=== PATIENT | female | born 1930 | race Two or more races ===

== ENCOUNTER 2020-04-20 08:16 | Inpatient (IN) | payer MEDICARE, BC ==
[2020-04-20] MEDS ORDERED: NORMAL SALINE 250 ML IV ONE (08:48)
[2020-04-20 09:19] LABS: ABSOLUTE EOSINOPHILS # (AUTO) 0.1 10^3/uL (0.0-0.6); ABSOLUTE LYMPHOCYTES (AUTO) 2.1 10^3/uL (0.5-4.7); ABSOLUTE MONOCYTES (AUTO) 0.5 10^3/uL (0.1-1.4); ABSOLUTE NEUT (AUTO) 5.7 10^3/uL (1.7-8.2); BASOPHILS % (AUTO) 0.5 % (0-2); EOSINOPHILS % (AUTO) 0.7 % (0-6); HEMATOCRIT 43.1 % (36.0-47.0); HEMOGLOBIN 14.7 g/dL (12.0-15.5); LYMPHOCYTES % (AUTO) 25.3 % (13-45); MEAN CORPUSCULAR HEMOGLOBIN 28.9 pg (27.0-33.4); MEAN CORPUSCULAR VOLUME 85 fl (80-97); MONOCYTES % (AUTO) 6.4 % (3-13); PLATELET COUNT 187 10^3/uL (150-450); RED BLOOD COUNT 5.07 10^6/uL (3.72-5.28); RED CELL DISTRIBUTION WIDTH 14.3 % (11.5-14.0); SEGMENTED NEUTROPHILS % (AUTO) 67.1 % (42-78); TOTAL CELLS COUNTED % (AUTO) 100 %; WHITE BLOOD COUNT 8.5 10^3/uL (4.0-10.5)
[2020-04-20 09:24] LABS: PROTHROMBIN TIME 13.5 SEC (11.4-15.4)
[2020-04-20 09:25] LABS: PARTIAL THROMBOPLASTIN TIME 32.5 SEC (23.5-35.8)
[2020-04-20 09:35] LABS: ALKALINE PHOSPHATASE 77 U/L (38-126); ANION GAP 11 (5-19); ASPARTATE AMINO TRANSFERASE 25 U/L (14-36); BILIRUBIN,DIRECT 0.1 mg/dL (0.0-0.4); BILIRUBIN,TOTAL 0.9 mg/dL (0.2-1.3); BLOOD UREA NITROGEN 14 mg/dL (7-20); CALCIUM 9.5 mg/dL (8.4-10.2); CARBON DIOXIDE 25 mmol/L (22-30); CHLORIDE 105 mmol/L (98-107); CREATINE KINASE 65 U/L (30-135); GLUCOSE 111 mg/dL (75-110); POTASSIUM 3.8 mmol/L (3.6-5.0); TOTAL PROTEIN 6.9 g/dL (6.3-8.2)
[2020-04-20 09:47] LABS: NT PRO BNP 197 pg/mL (<450)
--- NOTE | 2020-04-20 09:48 | RADIOLOGY REPORT (SQ) ---
EXAM DESCRIPTION: CT HEAD WITHOUT IMAGES COMPLETED DATE/TIME: 04/20/2020 9:33 am REASON FOR STUDY: unable to ambulate/right weakness upp/low COMPARISON: 03/09/2016 TECHNIQUE: Axial images acquired through the brain without intravenous contrast. Images reviewed wi th bone, brain and subdural windows. Additional sagittal and coronal reconstructions were generated. Images stored on PACS. All CT scanners at this facility use dose modulation, iterative reconstruction, and/or weight based d osing when appropriate to reduce radiation dose to as low as reasonably achievable (ALARA). [facility]: Dose Right [facility]: CareDose [facility]: Dose Right [facility]: Teradose 4D [facility]: LawyerPaid RADIATION DOSE: mGy. LIMITATIONS: None. FINDINGS: VENTRICLES: Prominent. CEREBRUM: No masses. No hemorrhage. No midline shift. Areas of low density in the white matter mos t likely due to chronic micro-vascular ischemic change. No evidence for acute infarction. CEREBELLUM: No masses. No hemorrhage. No alteration of density. No evidence for acute infarction. EXTRAAXIAL SPACES: Age-related involutional change. No fluid collections. No masses. ORBITS AND GLOBE: No intra- or extraconal masses. Normal contour of globe without masses. CALVARIUM: No fracture. PARANASAL SINUSES: No fluid or mucosal thickening. SOFT TISSUES: No mass or hematoma. OTHER: No other significant finding. IMPRESSION: CHRONIC CHANGES OF ATROPHY AND MICROVASCULAR ISCHEMIA. NO ACUTE PROCESS. EVIDENCE OF ACUTE STROKE: NO. TECHNICAL DOCUMENTATION: JOB ID: [id number] Quality ID # [id number]: Final reports with documentation of one or more dose reduction techniques (e.g., Au tomated exposure control, adjustment of the mA and/or kV according to patient size, use of iterative reconstruction technique) 2010 [employer]- All Rights Reserved Reading location - IP/workstation name: [email or web address]
[2020-04-20 10:06] LABS: TROPONIN I < 0.012 ng/mL
[2020-04-20 11:08] LABS: APPEARANCE,URINE CLEAR; BILIRUBIN,URINE NEGATIVE (NEGATIVE); COLOR,URINE YELLOW; GLUCOSE, URINE NEGATIVE (NEGATIVE); KETONES,URINE 20 mg/dL (NEGATIVE); LEUKOCYTE ESTERASE,URINE NEGATIVE (NEGATIVE); NITRITE,URINE NEGATIVE (NEGATIVE); PROTEIN,URINE NEGATIVE (NEGATIVE); URINE SPECIFIC GRAVITY 1.013; UROBILINOGEN,URINE NEGATIVE mg/dL (<2.0)
--- NOTE | 2020-04-20 11:20 | RADIOLOGY REPORT (SQ) ---
EXAM DESCRIPTION: CHEST SINGLE VIEW IMAGES COMPLETED DATE/TIME: 04/20/2020 10:59 am REASON FOR STUDY: altered mental status COMPARISON: None. NUMBER OF VIEWS: One view. TECHNIQUE: Single frontal radiographic view of the chest acquired. LIMITATIONS: None. FINDINGS: LUNGS AND PLEURA: No opacities, masses or pneumothorax. No pleural effusion. MEDIASTINUM AND HILAR STRUCTURES: No masses. Contour normal. HEART AND VASCULAR STRUCTURES: Heart normal in size. Normal vasculature. BONES: No acute findings. HARDWARE: None in the chest. OTHER: No other significant finding. IMPRESSION: NO SIGNIFICANT RADIOGRAPHIC FINDING IN THE CHEST. TECHNICAL DOCUMENTATION: JOB ID: [id number] 2010 [employer]- All Rights Reserved Reading location - IP/workstation name: [email or web address]
--- NOTE | 2020-04-20 12:46 | RADIOLOGY REPORT (SQ) ---
EXAM DESCRIPTION: HIP RIGHT AP/LATERAL IMAGES COMPLETED DATE/TIME: 04/20/2020 12:30 pm REASON FOR STUDY: unable to walk COMPARISON: None. NUMBER OF VIEWS: Two views. TECHNIQUE: AP pelvis and additional frog legview of the left hip. LIMITATIONS: None. FINDINGS: MINERALIZATION: Osteopenia. RIGHT HIP: No fracture or dislocation. No worrisome bone lesions. LEFT HIP: No fracture or dislocation. No worrisome bone lesions. Limited views. PUBIS AND ISCHIUM: No fracture. PELVIS: No fracture. SACRUM: No fracture or dislocation. No worrisome bone lesions. LOWER LUMBAR SPINE: No fracture or dislocation. No worrisome bone lesions. No significant disc disea se. SOFT TISSUES: No findings. OTHER: No other significant finding. IMPRESSION: 1. No acute osseous findings. Correlation suggested. TECHNICAL DOCUMENTATION: JOB ID: [id number] 2010 [employer]- All Rights Reserved Reading location - IP/workstation name: [email or web address]
--- NOTE | 2020-04-20 12:47 | RADIOLOGY REPORT (SQ) ---
EXAM DESCRIPTION: ANKLE RIGHT AP/LATERAL IMAGES COMPLETED DATE/TIME: 04/20/2020 12:30 pm REASON FOR STUDY: unABLE TO BEAR WEIGHT RIGHT COMPARISON: None. NUMBER OF VIEWS: Two views. TECHNIQUE: AP, lateral, radiographic images acquired of the right ankle. LIMITATIONS: None. FINDINGS: MINERALIZATION: Osteopenia. BONES: No acute fracture or dislocation. Small plantar calcaneal spur. JOINTS: No effusions. SOFT TISSUES: No soft tissue swelling. No foreign body. OTHER: No other significant finding. IMPRESSION: 1. No acute osseous findings. TECHNICAL DOCUMENTATION: JOB ID: [id number] 2010 [employer]- All Rights Reserved Reading location - IP/workstation name: [email or web address]
--- NOTE | 2020-04-20 12:48 | RADIOLOGY REPORT (SQ) ---
EXAM DESCRIPTION: KNEE RIGHT 2 VIEWS IMAGES COMPLETED DATE/TIME: 04/20/2020 12:30 pm REASON FOR STUDY: unable to walk COMPARISON: None. NUMBER OF VIEWS: Two views. TECHNIQUE: AP, lateral radiographic images acquired of the right knee. LIMITATIONS: None. FINDINGS: MINERALIZATION: Osteopenia. BONES: No acute fracture or dislocation. JOINT: Mild to moderate narrowing at the patellofemoral joint. No effusion. SOFT TISSUES: No soft tissue swelling. No radio-opaque foreign body. OTHER: No other significant finding. IMPRESSION: 1. 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 2. No acute osseous findings. TECHNICAL DOCUMENTATION: JOB ID: [id number] 2010 [employer]- All Rights Reserved Reading location - IP/workstation name: [email or web address]
--- NOTE | 2020-04-20 16:05 | ER Document Report ---
Entered by RADHAMES BAE SCRIBE 04/20/20 0830 Acting as scribe for:EZIO KING MD ED General - General Stated Complaint: WEAKNESS/ISSUES WITH WALKING Mode of Arrival: Medic Information source: Patient, Emergency Med Personnel Notes: This 89 year old female brought in by EMS from home presents to the ED today for evaluation after not being able to walk today. According to EMS, the family reports that the patient is usually able to ambulate without any difficulty at baseline; however, she was unable to get up and walk today, so they called the patient's PCP who advised to call EMS and bring the patient to the ED for evaluation. Family reports a history of chronic right-sided weakness which started after a fall several months ago per EMS; patient also injured her right knee during that fall. Family denies a history of CVA and states that the patient is supposed to start PT soon. Patient denies any pain. TRAVEL OUTSIDE OF THE [place] IN LAST 30 DAYS: No - Related Data Allergies/Adverse Reactions: No Known Allergies Allergy (Unverified 03/09/16 18:57) Past Medical History - General Information source: Emergency Med Personnel - Social History Smoking Status: Unknown if Ever Smoked Smoking Education Provided: No Lives with: Family Family History: Reviewed & Not Pertinent - Past Medical History Cardiac Medical History: Reports: Hx Hypertension Review of Systems - Review of Systems Constitutional: See HPI EENT: No symptoms reported Cardiovascular: No symptoms reported Respiratory: No symptoms reported Gastrointestinal: No symptoms reported Genitourinary: No symptoms reported Female Genitourinary: No symptoms reported Musculoskeletal: See HPI Skin: No symptoms reported Hematologic/Lymphatic: No symptoms reported Neurological/Psychological: See HPI -: Yes All other systems reviewed and negative Physical Exam - Vital signs Vitals: Temp Pulse Resp BP Pulse Ox 98.8 F 74 16 158/80 H 93 04/20/20 08:24 04/20/20 08:24 04/20/20 08:24 04/20/20 08:24 04/20/20 08:24 - General General appearance: Alert In distress: None - HEENT Head: Normocephalic, Atraumatic Eyes: Normal Pupils: PERRL - Respiratory Respiratory status: No respiratory distress Chest status: Nontender Breath sounds: Normal Chest palpation: Normal - Cardiovascular Rhythm: Regular Heart sounds: Normal auscultation Murmur: No Friction rub: No Gallop: None auscultated - Abdominal Inspection: Normal Distension: No distension Bowel sounds: Normal Tenderness: Nontender - Abdomen soft Organomegaly: No organomegaly - Back Back: Normal, Nontender - Extremities General upper extremity: Normal inspection General lower extremity: Normal inspection. No: Edema - Neurological Neuro grossly intact: Yes Orientation: AAOx4 Ana Coma Scale Eye Opening: Spontaneous [place] Coma Scale Verbal: Oriented [place] Coma Scale Motor: Obeys Commands [place] Coma Scale Total: 15 Speech: Normal Cranial nerves: Normal - Smile symmetric. No: Facial palsy Additional motor exam normals: Pronator drift - RUE, Weakness - Obvious right- sided weakness, RUE > RLE. No: Equal wildlife conservationist - Patient is able to wildlife conservationist with the left hand but not the right - Psychological Associated symptoms: Normal affect, Normal mood - Skin Skin Temperature: Warm Skin Moisture: Dry Skin Color: Normal Course - Re-evaluation Re-evalutation: 04/20/20 17:01 Patient resting comfortably not showing any signs of distress at this time. 04/20/20 17:06 Family members today wants patient placed in a rehab facility because patient no longer is walking and this has been ongoing for a few weeks at this time. Patient has been living alone up until yesterday family moved her to live with her brother and her brother is unable to take care of her and manage her. Therefore patient was brought to the emergency room today because of need for placement in a rehab facility. Patient apparently has had a stroke in the past with right-sided weakness received physical therapy for a period of time and it was discontinued. Once physical therapy program discontinued patient did not continue to work on ambulation and physical therapy and has deconditioned to this point of not being able to walk or standing at this time. The case management services work diligently today to try to place patient in a rehab facility and have we have been unsuccessful.. Patient does not meet criteria for admission to the hospital therefore patient is going to be housed in the emergency department until placement. - Vital Signs Vital signs: Temp Pulse Resp BP Pulse Ox 98.8 F 62 17 145/70 H 100 04/20/20 08:24 04/20/20 14:00 04/20/20 16:01 04/20/20 16:00 04/20/20 16:01 04/20/20 17:02 Vital signs stable - Laboratory Result Diagrams: 04/20/20 08:47 04/20/20 08:47 Laboratory results interpreted by me: 04/20/20 04/20/20 04/20/20 08:47 08:47 10:45 RDW 14.3 H Glucose 111 H Urine Ketones 20 H Urine Ascorbic Acid 20 H 04/20/20 08:47 11 08:47 MCV 85 fl (80-97) 04/20/20 08:47 MCH 28.9 pg (27.0-33.4) 04/20/20 08:47 MCHC 34.0 g/dL (32.0-36.0) 04/20/20 08:47 RDW 14.3 % (11.5-14.0) H 04/20/20 08:47 Seg Neutrophils % 67.1 % (42-78) 04/20/20 08:47 Chloride 105 mmol/L (98-107) 04/20/20 08:47 Carbon Dioxide 25 mmol/L (22-30) 04/20/20 08:47 Anion Gap 11 (5-19) 04/20/20 08:47 Est GFR ( Amer) > 60 (>60) 04/20/20 08:47 Glucose 111 mg/dL (75-110) H 04/20/20 08:47 Lactic Acid 0.8 mmol/L (0.7-2.1) 04/20/20 08:47 Calcium 9.5 mg/dL (8.4-10.2) 04/20/20 08:47 Total Bilirubin 0.9 mg/dL (0.2-1.3) 04/20/20 08:47 AST 25 U/L (14-36) 04/20/20 08:47 Alkaline Phosphatase 77 U/L (38-126) 04/20/20 08:47 Total Protein 6.9 g/dL (6.3-8.2) 04/20/20 08:47 Albumin 4.0 g/dL (3.5-5.0) 04/20/20 08:47 Lipase 156.0 U/L (23-300) 04/20/20 08:47 Urine Color YELLOW 04/20/20 10:45 Urine Appearance CLEAR 04/20/20 10:45 Urine pH 6.0 (5.0-9.0) 04/20/20 10:45 Ur Specific [place] 1.013 04/20/20 10:45 Urine Protein NEGATIVE mg/dL (NEGATIVE) 04/20/20 10:45 Urine Glucose (UA) NEGATIVE mg/dL (NEGATIVE) 04/20/20 10:45 Urine Ketones 20 mg/dL (NEGATIVE) H 04/20/20 10:45 Urine Blood NEGATIVE (NEGATIVE) 04/20/20 10:45 Urine Nitrite NEGATIVE (NEGATIVE) 04/20/20 10:45 Ur Leukocyte Esterase NEGATIVE (NEGATIVE) 04/20/20 10:45 Urine WBC (Auto) 1 /HPF 04/20/20 10:45 04/20/20 04/20/20 04/20/20 08:47 08:47 15:01 Creatine Kinase 65 Troponin I < 0.012 < 0.012 NT-Pro-B Natriuret Pep 197 Laboratory results unremarkable no evidence for infection no evidence for stroke or evidence of any heart attack. Patient's metabolic pattern is within normal range. - Diagnostic Test Radiology reviewed: Image reviewed, Reports reviewed Radiology results interpreted by me: 04/20/20 17:[address] 04/20/20 08:49 IMPRESSION: CHRONIC CHANGES OF ATROPHY AND MICROVASCULAR ISCHEMIA. NO ACUTE PROCESS. EVIDENCE OF ACUTE STROKE: NO. Chest X-Ray 04/20/20 10:32 IMPRESSION: NO SIGNIFICANT RADIOGRAPHIC FINDING IN THE CHEST. Hip/Pelvis X-Ray 04/20/20 11:42 IMPRESSION: 1. No acute osseous findings. Correlation suggested. Knee X-Ray 04/20/20 11:43 IMPRESSION: 1. 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 2. No acute osseous findings. Ankle X-Ray 04/20/20 11:44 IMPRESSION: 1. No acute osseous findings. Here for intermittent head CT shows no acute process no evidence of acute stroke. Chest x-ray no evidence for any acute finding on chest x-ray hip pelvis x-ray no osseous findings no fractures. Knee x-ray degenerative arthrosis of the patellofemoral joint otherwise no acute process ankle x-ray no acute findings. - EKG Interpretation by Me Additional EKG results interpreted by me: 04/20/20 09:18 12-lead EKG shows normal sinus rhythm rate of 74 artifact noted MS interval wit hin normal range QRS intervals within normal range and QT interval within normal range. Normal axis no acute ST-T wave changes. Artifact noted on EKG. No STEMI. Discharge - Discharge Clinical Impression: Chronic right-sided weakness, Physical deconditioning, Rehab placement issues Condition: Stable Disposition: OTHER I personally performed the services described in the documentation, reviewed and edited the documentation which was dictated to the scribe in my presence, and it accurately records my words and actions.
--- NOTE | 2020-04-20 23:02 | EKG REPORT ---
SEVERITY:- BORDERLINE ECG - SINUS RHYTHM BORDERLINE T ABNORMALITIES, ANTERIOR LEADS : Confirmed by: [place] 20-Apr-2020 23:02:23
--- NOTE | 2020-04-21 19:17 | ER Document Report ---
Doctor's Note Notes: 04/21/20 19:17 Patient seen just now. Patient is resting in the bed comfortably without any significant complaints. Heart is regular rate and rhythm. Lungs are clear auscultation bilaterally abdomen is soft nontender and nondistended. Skin is warm and dry.
--- NOTE | 2020-04-22 02:50 | ER Document Report ---
Doctor's Note Notes: 04/22/20 02:49 Notified by charge nurse that patient had a positive anaerobic blood culture for gram-positive cocci in clusters. Patient has had no fevers. He has no leukocytosis. He has no UTI. Given this information, I find this is likely a contaminant. Will await any readings in regards to other blood cultures, oth miltonwise I do not believe any action is indicated at this time.
--- NOTE | 2020-04-22 12:45 | RADIOLOGY REPORT (SQ) ---
EXAM DESCRIPTION: MRI HEAD WITHOUT IMAGES COMPLETED DATE/TIME: 04/22/2020 12:34 pm REASON FOR STUDY: right arm weakness COMPARISON: None. TECHNIQUE: Multiplanar imaging includes non-contrasted T1, T2, FLAIR, and diffusion with ADC map seq uences. Images stored on PACS. LIMITATIONS: Motion artifact. FINDINGS: ANATOMY: No anomalies. Normal vascular flow voids. Pituitary fossa normal. CSF SPACES: Atrophy induced prominence of ventricles and CSF spaces. CEREBRUM: Approximately 3 cm maximum diameter geographic abnormal signal in the left occipital lobe e xtending into the left thalamus bright on diffusion and dark on ADC map. No hemorrhage or midline sh ift. There is associated cytotoxic edema. POSTERIOR FOSSA: No signal alteration. No hemorrhage. No edema, masses or mass effect. Internal emory tory canals, cerebello-pontine angles, mastoids normal. DIFFUSION IMAGING: See above. ORBITS: No masses. Globes normal. PARANASAL SINUSES: No fluid levels. Mucosa normal. OTHER: No other significant finding. IMPRESSION: Acute, nonhemorrhagic infarct left SNACK STEWARDESS territory. EVIDENCE OF ACUTE STROKE: YES. LEFT SNACK STEWARDESS. TECHNICAL DOCUMENTATION: JOB ID: [id number] [employer]- All Rights Reserved Reading location - IP/workstation name: [email or web address]
--- NOTE | 2020-04-22 12:48 | RADIOLOGY REPORT (SQ) ---
EXAM DESCRIPTION: MRA HEAD WITHOUT IMAGES COMPLETED DATE/TIME: 04/22/2020 12:34 pm REASON FOR STUDY: cva COMPARISON: None. TECHNIQUE: Axial 3-D [id number] acquisition imaging performed through the brain in the area of t he [place] of [place]. Images reformatted using 3-D MIPS. LIMITATIONS: None. FINDINGS: SOURCE IMAGES: See separate report. 3-D MIP: No significant flow identified in the left posterior cerebral artery. Remainder of the circ le of [place] is normal. OTHER: No other significant finding. IMPRESSION: Occlusion or high-grade spasm of the left POLE SHAVER HELPER. TECHNICAL DOCUMENTATION: JOB ID: [id number] 2010 [employer] All Rights Reserved Reading location - IP/workstation name: [email or web address]
--- NOTE | 2020-04-22 14:14 | ER Document Report ---
Doctor's Note Notes: 04/22/20 14:08 Patient was seen this morning on my rounds. A relative, the niece, was sitting in the room with the patient. I asked if she had any concerns or issues this morning and she stated that she wanted to know why the patient was weak on the right side. I then went back and reviewed the notes which stated that the patient had several months of right-sided weakness and it was due to a previous stroke. I also saw that the initial work-up that was done here 2 days ago was unremarkable for any acute pathology. I saw that a head CT was negative. I then informed the relative that I would obtain an MRI to look for an occult cerebrovascular incident. MRI returned showing the patient have an acute left NATUROPATHIC DOCTOR infarct. I have now informed the family and the patient of this result. I have also spoke with the hospitalist who will admit the patient. At this time patient is still pleasant resting comfortably and has no significant complaints.
--- NOTE | 2020-04-22 14:59 | PDOC H&P ---
History of Present Illness History of Present Illness: ANTONINO BARBOZA is a 89 year old female who is unable to provide me with a history and so obtained from a family member who does not know very much about her medical history. She initially presented to the ER 2 days ago because of an inability to walk at home. The day before she presented to the ER on 04/20, the patient's niece had called EMS because the patient was unable to walk. The p atient refused to go with EMS. Some other family said that they would take the patient home with them for a few days. They said she was having some trouble ambulating and seemed to be dragging her right foot. They noticed some weakness in her right arm as well. They said early in the morning of her initial presentation to the ER, that she had to go to the bathroom but was unable to get there and so they had decided they were going to try to carry her into the bathroom. When they were unsuccessful, they decided to have her brought to the hospital. Her vital signs, lab work, and imaging studies including a head CT were unremarkable. The ER kept her as a social hold and attempt to get her placed into rehab. This morning while doing social hold rounds, the ED provider spoke with the family member who asked why her arm and leg were still weak. An MRI of the brain was obtained and it showed the patient actually had an ischemic stroke. She is being admitted for further evaluation. The only medications that we know the patient takes is one medication for blood pressure which appea rs to be amlodipine, and she takes a "fluid pill" because she gets swelling in her feet. The family initially told me that the patient did not have any medical problems. Past Medical History Cardiac Medical History: Reports: Hypertension Hematology: Reports: Anemia Social History Lives with: Family Smoking Status: Unknown if Ever Smoked Family History Family History: Reviewed & Not Pertinent Parental Family History Reviewed: No - Unable to obtain Children Family History Reviewed: No - Unable to obtain Sibling(s) Family History Reviewed.: No - Unable to obtain Medication/Allergy Home Medications: Amlodipine Besylate [Norvasc 5 mg Tablet] 5 mg PO DAILY 04/21/20 Furosemide [Lasix 20 mg Tablet] 20 mg PO DAILY 04/21/20 Allergies/Adverse Reactions: No Known Allergies Allergy (Verified 04/21/20 07:17) Review of Systems ROS unobtainable: Due to mental status Physical Exam Vital Signs: Temp Pulse Resp BP Pulse Ox 97.9 F 66 16 136/63 H 100 04/22/20 10:56 04/22/20 10:56 04/22/20 10:56 04/22/20 10:56 04/22/20 10:56 Intake & Output 04/21/20 04/22/20 04/23/20 06:59 06:59 06:59 Intake Total 250 Balance 250 Weight 58 kg General appearance: PRESENT: no acute distress, cooperative, disheveled, thin Head exam: PRESENT: atraumatic, normocephalic Eye exam: PRESENT: EOMI, PERRLA. ABSENT: conjunctival injection, nystagmus, scleral icterus Ear exam: PRESENT: normal external ear exam Mouth exam: PRESENT: moist, neck supple Teeth exam: PRESENT: poor dentation Neck exam: PRESENT: full ROM. ABSENT: carotid bruit, JVD, lymphadenopathy, meningismus, tenderness, thyromegaly Respiratory exam: PRESENT: clear to auscultation francine, symmetrical, unlabored. ABSENT: accessory muscle use, chest wall tenderness, crackles, prolonged expiratory phas, rhonchi, tachypnea, wheezes Cardiovascular exam: PRESENT: RRR, +S1, +S2 Pulses: PRESENT: normal carotid pulses Vascular exam: PRESENT: normal capillary refill GI/Abdominal exam: PRESENT: normal bowel sounds, soft. ABSENT: distended, guarding, rebound, tenderness Extremities exam: ABSENT: clubbing, pedal edema Musculoskeletal exam: PRESENT: normal inspection. ABSENT: deformity Neurological exam: PRESENT: alert, awake, oriented to person, CN II-XII grossly intact, motor sensory deficit - She can wiggle the toes on her right foot but she cannot hold it off the bed against gravity. She can also wiggle the fingers on her right hand but is unable to lift her right arm at the shoulder., other - She was unable to answer open-ended questions and she had difficulty following commands. She did not seem to understand that I wanted her to hold her leg up against gravity and kept trying to push it down into the bed with her hamstrings. ABSENT: oriented to place, oriented to situation Psychiatric exam: PRESENT: flat affect Skin exam: PRESENT: dry, warm Results Laboratory Results: 04/20/20 08:47 04/20/20 08:47 04/20/20 10:45 Catheterized Urine Urine Culture - Final NO GROWTH 2 DAYS 04/20/20 04/20/20 04/20/20 08:47 08:47 15:01 Creatine Kinase 65 Troponin I < 0.012 < 0.012 NT-Pro-B Natriuret Pep 197 Impressions: Head CT 04/20/20 08:49 IMPRESSION: CHRONIC CHANGES OF ATROPHY AND MICROVASCULAR ISCHEMIA. NO ACUTE PROCESS. EVIDENCE OF ACUTE STROKE: NO. Chest X-Ray 04/20/20 10:32 IMPRESSION: NO SIGNIFICANT RADIOGRAPHIC FINDING IN THE CHEST. Hip/Pelvis X-Ray 04/20/20 11:42 IMPRESSION: 1. No acute osseous findings. Correlation suggested. Knee X-Ray 04/20/20 11:43 IMPRESSION: 1. 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 2. No acute osseous findings. Ankle X-Ray 04/20/20 11:44 IMPRESSION: 1. No acute osseous findings. Brain MRI with MRA 04/22/20 00:00 IMPRESSION: Occlusion or high-grade spasm of the left CEMENT TRUCK DRIVER. Head MRI 04/22/20 10:32 IMPRESSION: Acute, nonhemorrhagic infarct left CEMENT TRUCK DRIVER territory. EVIDENCE OF ACUTE STROKE: YES. LEFT CEMENT TRUCK DRIVER. Assessment and Plan - Diagnosis (1) CVA (cerebral vascular accident) Qualifiers: CVA mechanism: occlusion Precerebral and cerebral artery: posterior cerebral artery Laterality of affected vessel: left Qualified Code(s): I63.532 - 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 Is this a current diagnosis for this admission?: Yes - Plan Summary Summary: We will start her on aspirin and statin. We will check a lipid panel. We will get a carotid Doppler. We will have her evaluated by PT, OT, and speech therapy. We will monitor her on telemetry. Anticipate she will need [facility]. She uses [facility] for her pharmacy and will try to obtain a medication list from that business. Her family thinks her doctor's name is Isaak. - Time Time Spent with patient: 35 or more minutes Anticipated Discharge Disposition: Residential Facility Anticipated Discharge Timeframe: within 72 hours - Inpatient Certification Based on my medical assessment, after consideration of the patient's comorbidities, presenting symptoms, or acuity I expect that the services needed warrant INPATIENT care.: Yes I certify that my determination is in accordance with my understanding of Medicare's requirements for reasonable and necessary INPATIENT services [42 CFR 412.3e].: Yes Medical Necessity: Need Close Monitoring Due to Risk of Patient Decompensation, Need For Continuous Telemetry Monitoring, Need for Neurological Checks, Risk of Complication if Not Cared For in Hospital
[2020-04-22] MEDS: ASPIRIN 81 MG TABLET, ENT COATED PO SCH (15:36)
[2020-04-22] MEDS: ATORVASTATIN CALCIUM 40 MG TABLET PO SCH (21:47)
[2020-04-22] MEDS: HEPARIN SOD (PORCINE) 5,000 UNIT/ML 1 ML VIAL SUBCUT SCH (21:49)
[2020-04-23] MEDS: HEPARIN SOD (PORCINE) 5,000 UNIT/ML 1 ML VIAL SUBCUT SCH ×3 (06:15→21:33)
[2020-04-23 07:01] LABS: HEMATOCRIT 41.1 % (36.0-47.0); HEMOGLOBIN 14.1 g/dL (12.0-15.5); MEAN CORPUSCULAR HEMOGLOBIN 28.8 pg (27.0-33.4); MEAN CORPUSCULAR HGB CONC 34.2 g/dL (32.0-36.0); MEAN CORPUSCULAR VOLUME 84 fl (80-97); PLATELET COUNT 161 10^3/uL (150-450); RED BLOOD COUNT 4.88 10^6/uL (3.72-5.28); RED CELL DISTRIBUTION WIDTH 14.3 % (11.5-14.0); WHITE BLOOD COUNT 8.8 10^3/uL (4.0-10.5)
[2020-04-23 07:27] LABS: ANION GAP 10 (5-19); BLOOD UREA NITROGEN 15 mg/dL (7-20); CALCIUM 9.4 mg/dL (8.4-10.2); CARBON DIOXIDE 25 mmol/L (22-30); CHLORIDE 105 mmol/L (98-107); CHOLESTEROL 167.34 mg/dL (0-200); GLUCOSE 103 mg/dL (75-110); POTASSIUM 3.8 mmol/L (3.6-5.0); TRIGLYCERIDES 115 mg/dL (<150)
[2020-04-23 07:37] LABS: DIRECT LDL 117 mg/dL (<100)
--- NOTE | 2020-04-23 08:29 | RADIOLOGY REPORT (SQ) ---
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 COMPARISON: None available CLINICAL HISTORY: 89-year old patient with concern for stroke. TECHNIQUE: Gomez-scale, duplex and color Doppler images of the carotid systems are obtained bilaterally. (Validated velocity measurements with angiographic measurements - Velocity criteria are extrapolated from diameter data as defined by the Society of Radiologists in Ultrasound Consensus Conference, Radiology 2003; 229; 340 - 346.) FINDINGS: Mild atherosclerotic plaque and intimal thickening is seen within both carotid bulbs as well as the proximal internal and external carotid arteries. Spectral analysis demonstrates peak systolic and end-diastolic velocities as follows: RIGHT: CCA: 107 cm/s, 15.4 cm/s Proximal ICA: 55.0 cm/s, 10.2 cm/s Distal ICA: 85.6 cm/s, 21.2 cm/s LEFT: CCA: 96.3 cm/s, 13.8 cm/s Proximal ICA: 54.7 cm/s, 17.1 cm/s Distal ICA: 94.2 cm/s, 29.7 cm/s The ICA:CCA ratio on the right is 0.8, and on the left is 1.18. There is antegrade flow in both vertebral arteries. IMPRESSION: No evidence of a hemodynamically significant abnormality within the internal carotid arteries. Peak systolic and end-diastolic velocities are all consistent with luminal narrowing of less than 50%.
[2020-04-23] MEDS: ASPIRIN 81 MG TABLET, ENT COATED PO SCH (10:39)
--- NOTE | 2020-04-23 11:49 | CDI QUERY ---
CDI Query CDI Review: We are seeking further clarification of documentation to reflect the severity of illness of your patient. Per ED Notes: presents to the ED today for evaluation after not being able to walk today. According to EMS, the family reports that the patient is usually able to ambulate without any difficulty at baseline; however, she was unable to get up and walk today, so they called the patient's PCP who advised to call EMS and bring the patient to the ED for evaluation. Family reports a history of chronic right-sided weakness which started after a fall several months ago per EMS; patient also injured her right knee during that fall. Family denies a history of CVA and states that the patient is supposed to start PT soon. Patient denies any pain. Per ED Providers Notes: I asked if she had any concerns or issues this morning and she stated that she wanted to know why the patient was weak on the right side. I then went back and reviewed the notes which stated that the patient had several months of right-sided weakness and it was due to a previous stroke Based on your medical judgement, can you further clarify in the Progress Notes: Is the right-sided weakness sequela of previous CVA? New extension of right-sided weakness secondary to current CVA? Can the right sided weakness be further clarified: Right hemiplegia (dominant or non-dominant) Right hemiparesis Unable to determine Other Thank you for your consideration. KEYONNA Coreas RN Clinical Tray Worker Physician Advisor [email or web address]
--- NOTE | 2020-04-23 17:23 | PDOC PROGRESS REPORT ---
Subjective Date:: 04/23/20 Subjective:: No adverse events overnight. No new complaints. Patient is clinically unchange d. Her neurological examination has not changed. She wanted to sleep and did not want to interact with me very much. When I got her to wake up she was not able to squeeze my fingers with her right hand or move her right leg, but I do not know how much of it was true weakness versus her desire to be left alone. Reason For Visit: ACUTE ISCHEMIC CVA Physical Exam Vital Signs: Temp Pulse Resp BP Pulse Ox 98.2 F 63 16 117/73 97 04/23/20 15:36 04/23/20 16:00 04/23/20 16:00 04/23/20 16:00 04/23/20 16:00 General appearance: PRESENT: no acute distress, cooperative, disheveled, thin Respiratory exam: PRESENT: clear to auscultation francine, symmetrical, unlabored. ABSENT: accessory muscle use, chest wall tenderness, crackles, prolonged expiratory phas, rhonchi, tachypnea, wheezes Cardiovascular exam: PRESENT: RRR, +S1, +S2 Pulses: PRESENT: normal carotid pulses Vascular exam: PRESENT: normal capillary refill GI/Abdominal exam: PRESENT: normal bowel sounds, soft. ABSENT: distended, guarding, rebound, tenderness Extremities exam: ABSENT: clubbing, pedal edema Musculoskeletal exam: PRESENT: normal inspection. ABSENT: deformity Neurological exam: PRESENT: alert, awake, oriented to person, CN II-XII grossly intact, motor sensory deficit -she still has right arm and right leg weakness and right-sided neglect, she woke up and looked at me but did not talk Psychiatric exam: PRESENT: flat affect Skin exam: PRESENT: dry, warm Results Laboratory Results: 04/23/20 06:39 04/23/20 06:39 04/23/20 04/23/20 06:39 06:39 WBC 8.8 RBC 4.88 Hgb 14.1 Hct 41.1 MCV 84 MCH 28.8 MCHC 34.2 RDW 14.3 H Plt Count 161 Sodium 139.5 Potassium 3.8 Chloride 105 Carbon Dioxide 25 Anion Gap 10 BUN 15 Creatinine 0.83 Est GFR ( Amer) > 60 Glucose 103 Calcium 9.4 Triglycerides 115 Cholesterol 167.34 LDL Cholesterol Direct 117 H VLDL Cholesterol 23.0 HDL Cholesterol 40 04/20/20 04/20/20 04/20/20 08:47 08:47 15:01 Creatine Kinase 65 Troponin I < 0.012 < 0.012 NT-Pro-B Natriuret Pep 197 Impressions: Head CT 04/20/20 08:49 IMPRESSION: CHRONIC CHANGES OF ATROPHY AND MICROVASCULAR ISCHEMIA. NO ACUTE PROCESS. EVIDENCE OF ACUTE STROKE: NO. Chest X-Ray 04/20/20 10:32 IMPRESSION: NO SIGNIFICANT RADIOGRAPHIC FINDING IN THE CHEST. Hip/Pelvis X-Ray 04/20/20 11:42 IMPRESSION: 1. No acute osseous findings. Correlation suggested. Knee X-Ray 04/20/20 11:43 IMPRESSION: 1. 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 2. No acute osseous findings. Ankle X-Ray 04/20/20 11:44 IMPRESSION: 1. No acute osseous findings. Brain MRI with MRA 04/22/20 00:00 IMPRESSION: Occlusion or high-grade spasm of the left DIRECTOR AMBULATORY. Head MRI 04/22/20 10:32 IMPRESSION: Acute, nonhemorrhagic infarct left DIRECTOR AMBULATORY territory. EVIDENCE OF ACUTE STROKE: YES. LEFT DIRECTOR AMBULATORY. Carotid Doppler Study 04/22/20 14:42 IMPRESSION: No evidence of a hemodynamically significant abnormality within the internal carotid arteries. Peak systolic and end-diastolic velocities are all consistent with luminal narrowing of less than 50%. Assessment and Plan - Diagnosis (1) CVA (cerebral vascular accident) Qualifiers: CVA mechanism: occlusion Precerebral and cerebral artery: posterior cerebral artery Laterality of affected vessel: left Qualified Code(s): I63.532 - 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 Is this a current diagnosis for this admission?: Yes (2) Right sided weakness Is this a current diagnosis for this admission?: Yes - Plan Summary Summary: Continue aspirin and statin. Continue physical therapy. Carotid Doppler showed some nonobstructing atherosclerotic disease bilaterally. Her right-sided weakness and neglect is due to her acute stroke. As far as anyone knows, she did not have any previous unilateral weakness. She will need [facility] facility placement for rehab. - Time Time Spent with patient: 15-24 minutes Anticipated Discharge Disposition: [facility] Facility Anticipated Discharge Timeframe: within 72 hours
[2020-04-23] MEDS: ATORVASTATIN CALCIUM 40 MG TABLET PO SCH (21:19)
[2020-04-24] MEDS: HEPARIN SOD (PORCINE) 5,000 UNIT/ML 1 ML VIAL SUBCUT SCH ×2 (05:39→13:21)
[2020-04-24] MEDS: ASPIRIN 81 MG TABLET, ENT COATED PO SCH (12:01)
--- NOTE | 2020-04-24 13:53 | PDOC TRANSFER SUMMARY ---
Impression - Admit/DC Date/PCP Admission Date/Primary Care Provider: 04/22/20 14:47 Discharge Date: 04/24/20 - Discharge Diagnosis (1) CVA (cerebral vascular accident) Is this a current diagnosis for this admission?: Yes (2) Right sided weakness Is this a current diagnosis for this admission?: Yes - Assessment Summary: Continue aspirin and statin. Continue physical therapy. Carotid Doppler showed some nonobstructing atherosclerotic disease bilaterally. Her right-sided weakness and neglect is due to her acute stroke. As far as anyone knows, she did not have any previous unilateral weakness. She will need halfway facility placement for rehab. - Additional Information Resuscitation Status: Full Code Discharge Diet: Cardiac Discharge Activity: No Driving, Supervised Activity Home Medications: Amlodipine Besylate [Norvasc 5 mg Tablet] 5 mg PO DAILY 04/21/20 Aspirin [Ecotrin 81 mg EC Tablet] 81 mg PO DAILY tabec 04/24/20 Atorvastatin Calcium [Lipitor 40 mg Tablet] 40 mg PO QHS tablet 04/24/20 History of Present Illiness History of Present Illness: ANTONINO BARBOZA is a 89 year old female who is unable to provide me with a history and so obtained from a family member who does not know very much about her medical history. She initially presented to the ER 2 days ago because of an inability to walk at home. The day before she presented to the ER on 04/20, the patient's niece had called EMS because the patient was unable to walk. The patient refused to go with EMS. Some other family said that they would take the patient home with them for a few days. They said she was having some trouble ambulating and seemed to be dragging her right foot. They noticed some weakness in her right arm as well. They said early in the morning of her initial presentation to the ER, that she had to go to the bathroom but was unable to get there and so they had decided they were going to try to carry her into the bathroom. When they were unsuccessful, they decided to have her brought to the hospital. Her vital signs, lab work, and imaging studies including a head CT were unremarkable. The ER kept her as a social hold and attempt to get her placed into rehab. This morning while doing social hold rounds, the ED provider spoke with the family member who asked why her arm and leg were still weak. An MRI of the brain was obtained and it showed the patient actually had an ischemic stroke. She is being admitted for further evaluation. The only medications that we know the patient takes is one medication for blood pressure which appe ars to be amlodipine, and she takes a "fluid pill" because she gets swelling in her feet. The family initially told me that the patient did not have any medical problems. Hospital Course Hospital Course: Her vital signs remained very stable. She continued to manifest right-sided weakness and neglect. She did very well for her swallow evaluation and speech therapy recommended regular consistency foods with thin liquids and she is able to take pills. We started her on aspirin and a statin. She will continue her home dose of amlodipine. She apparently was on Lasix at home but I think it was only as needed in case she got some swelling in her feet. She has not received it here and has not shown any signs of any edema. She has a bed at [facility] and will go there for physical therapy. At this time she has not shown the ability to use her right hand, at least I have not been able to get her to do so, and she is able to wiggle the toes on her right foot a little bit but she is not able to hold off the bed against gravity. Physical Exam Vital Signs: Temp Pulse Resp BP Pulse Ox 98.8 F 71 17 141/54 H 96 04/24/20 10:00 04/24/20 12:00 04/24/20 12:00 04/24/20 12:00 04/24/20 12:00 Intake & Output 04/23/20 04/24/20 04/25/20 06:59 06:59 06:59 Weight 65.1 kg General appearance: PRESENT: no acute distress, cooperative, disheveled, thin Respiratory exam: PRESENT: clear to auscultation francine, symmetrical, unlabored. ABSENT: accessory muscle use, chest wall tenderness, crackles, prolonged expiratory phas, rhonchi, tachypnea, wheezes Cardiovascular exam: PRESENT: RRR, +S1, +S2 Pulses: PRESENT: normal carotid pulses Vascular exam: PRESENT: normal capillary refill GI/Abdominal exam: PRESENT: normal bowel sounds, soft. ABSENT: distended, guarding, rebound, tenderness Extremities exam: ABSENT: clubbing, pedal edema Musculoskeletal exam: PRESENT: normal inspection. ABSENT: deformity Neurological exam: PRESENT: alert, awake, oriented to person, CN II-XII grossly intact, motor sensory deficit -she still has right arm and right leg weakness and right-sided neglect, she was more conversant and interactive with me today Psychiatric exam: PRESENT: flat affect Skin exam: PRESENT: dry, warm Results Laboratory Results: WBC 8.8 10^3/uL (4.0-10.5) 04/23/20 06:39 RBC 4.88 10^6/uL (3.72-5.28) 04/23/20 06:39 Hgb 14.1 g/dL (12.0-15.5) 04/23/20 06:39 Hct 41.1 % (36.0-47.0) 04/23/20 06:39 MCV 84 fl (80-97) 04/23/20 06:39 MCH 28.8 pg (27.0-33.4) 04/23/20 06:39 MCHC 34.2 g/dL (32.0-36.0) 04/23/20 06:39 RDW 14.3 % (11.5-14.0) H 04/23/20 06:39 Plt Count 161 10^3/uL (150-450) 04/23/20 06:39 Lymph % (Auto) 25.3 % (13-45) 04/20/20 08:47 Edmunds % (Auto) 6.4 % (3-13) 04/20/20 08:47 Eos % (Auto) 0.7 % (0-6) 04/20/20 08:47 Baso % (Auto) 0.5 % (0-2) 04/20/20 08:47 Absolute Neuts (auto) 5.7 10^3/uL (1.7-8.2) 04/20/20 08:47 Absolute Lymphs (auto) 2.1 10^3/uL (0.5-4.7) 04/20/20 08:47 Absolute Monos (auto) 0.5 10^3/uL (0.1-1.4) 04/20/20 08:47 Absolute Eos (auto) 0.1 10^3/uL (0.0-0.6) 04/20/20 08:47 Absolute Basos (auto) 0.0 10^3/uL (0.0-0.2) 04/20/20 08:47 Seg Neutrophils % 67.1 % (42-78) 04/20/20 08:47 PT 13.5 SEC (11.4-15.4) 04/20/20 08:47 INR 1.00 04/20/20 08:47 APTT 32.5 SEC (23.5-35.8) 04/20/20 08:47 Sodium 139.5 mmol/L (137-145) 04/23/20 06:39 Potassium 3.8 mmol/L (3.6-5.0) 04/23/20 06:39 Chloride 105 mmol/L (98-107) 04/23/20 06:39 Carbon Dioxide 25 mmol/L (22-30) 04/23/20 06:39 Anion Gap 10 (5-19) 04/23/20 06:39 BUN 15 mg/dL (7-20) 04/23/20 06:39 Creatinine 0.83 mg/dL (0.52-1.25) 04/23/20 06:39 Est GFR ( Amer) > 60 (>60) 04/23/20 06:39 Est GFR (MDRD) Non-Af > 60 (>60) 04/23/20 06:39 Glucose 103 mg/dL (75-110) 04/23/20 06:39 Lactic Acid 0.8 mmol/L (0.7-2.1) 04/20/20 08:47 Calcium 9.4 mg/dL (8.4-10.2) 04/23/20 06:39 Total Bilirubin 0.9 mg/dL (0.2-1.3) 04/20/20 08:47 Direct Bilirubin 0.1 mg/dL (0.0-0.4) 04/20/20 08:47 Neonat Total Bilirubin Not Reportable 04/20/20 08:47 Neonat Direct Bilirubin Not Reportable 04/20/20 08:47 Neonat Indirect Bili Not Reportable 04/20/20 08:47 AST 25 U/L (14-36) 04/20/20 08:47 ALT 10 U/L (<35) 04/20/20 08:47 Alkaline Phosphatase 77 U/L (38-126) 04/20/20 08:47 Creatine Kinase 65 U/L (30-135) 04/20/20 08:47 Troponin I < 0.012 ng/mL 04/20/20 15:01 NT-Pro-B Natriuret Pep 197 pg/mL (<450) 04/20/20 08:47 Total Protein 6.9 g/dL (6.3-8.2) 04/20/20 08:47 Albumin 4.0 g/dL (3.5-5.0) 04/20/20 08:47 Triglycerides 115 mg/dL (<150) 04/23/20 06:39 Cholesterol 167.34 mg/dL (0-200) 04/23/20 06:39 LDL Cholesterol Direct 117 mg/dL (<100) H 04/23/20 06:39 VLDL Cholesterol 23.0 mg/dL (10-31) 04/23/20 06:39 HDL Cholesterol 40 mg/dL (>40) 04/23/20 06:39 Lipase 156.0 U/L (23-300) 04/20/20 08:47 Urine Color YELLOW 04/20/20 10:45 Urine Appearance CLEAR 04/20/20 10:45 Urine pH 6.0 (5.0-9.0) 04/20/20 10:45 Ur Specific [place] 1.013 04/20/20 10:45 Urine Protein NEGATIVE mg/dL (NEGATIVE) 04/20/20 10:45 Urine Glucose (UA) NEGATIVE mg/dL (NEGATIVE) 04/20/20 10:45 Urine Ketones 20 mg/dL (NEGATIVE) H 04/20/20 10:45 Urine Blood NEGATIVE (NEGATIVE) 04/20/20 10:45 Urine Nitrite NEGATIVE (NEGATIVE) 04/20/20 10:45 Urine Bilirubin NEGATIVE (NEGATIVE) 04/20/20 10:45 Urine Urobilinogen NEGATIVE mg/dL (<2.0) 04/20/20 10:45 Ur Leukocyte Esterase NEGATIVE (NEGATIVE) 04/20/20 10:45 Urine WBC (Auto) 1 /HPF 04/20/20 10:45 Urine Mucus (Auto) RARE /LPF 04/20/20 10:45 Urine Ascorbic Acid 20 (NEGATIVE) H 04/20/20 10:45 04/20/20 04/20/20 08:47 15:01 Troponin I < 0.012 < 0.012 NT-Pro-B Natriuret Pep 197 Impressions: Head CT 04/20/20 08:49 IMPRESSION: CHRONIC CHANGES OF ATROPHY AND MICROVASCULAR ISCHEMIA. NO ACUTE PROCESS. EVIDENCE OF ACUTE STROKE: NO. Chest X-Ray 04/20/20 10:32 IMPRESSION: NO SIGNIFICANT RADIOGRAPHIC FINDING IN THE CHEST. Hip/Pelvis X-Ray 04/20/20 11:42 IMPRESSION: 1. No acute osseous findings. Correlation suggested. Knee X-Ray 04/20/20 11:43 IMPRESSION: 1. 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 2. No acute osseous findings. Ankle X-Ray 04/20/20 11:44 IMPRESSION: 1. No acute osseous findings. Brain MRI with MRA 04/22/20 00:00 IMPRESSION: Occlusion or high-grade spasm of the left MEDIA ANALYTICS MANAGER. Head MRI 04/22/20 10:32 IMPRESSION: Acute, nonhemorrhagic infarct left MEDIA ANALYTICS MANAGER territory. EVIDENCE OF ACUTE STROKE: YES. LEFT MEDIA ANALYTICS MANAGER. Carotid Doppler Study 04/22/20 14:42 IMPRESSION: No evidence of a hemodynamically significant abnormality within the internal carotid arteries. Peak systolic and end-diastolic velocities are all consistent with luminal narrowing of less than 50%. Plan Time Spent: Greater than 30 Minutes Stroke Is this a Stroke Patient?: Yes Stroke Pt being discharged on Anti-thrombolytic therapy?: Yes Stroke Pt being discharged on Anti-coagulation therapy?: No Reason(s) for not prescribing Anti-coagulation therapy:: Not indicated Stroke Pt being discharged on Statins?: Yes Acute Heart Failure Is this a Heart Failure Patient?: No
[2020-04-24 14:49] VITALS: BP 123/59
== END 2020-04-24 15:15 | DRG 65 ==
LOC: ER 08:16 → EH 04-22 14:47 → 5TH 04-23 13:09 → 5 04-23 16:11
PROVIDERS: ADMIT Family Medicine; ATTEND Family Medicine
DX: I63.532 Cerebral infarction due to unspecified occlusion or stenosis of left posterior cerebral artery (principal); G81.91 Hemiplegia, unspecified affecting right dominant side; I10 Essential (primary) hypertension; D64.9 Anemia, unspecified; Z79.899 Other long term (current) drug therapy; Z79.82 Long term (current) use of aspirin
CPT/HCPCS: 36415; 70450; 70544; 70551; 71045; 80048; 80053; 80061; 81001; 82550; 83605; 83690; 83880; 84484; 85025; 85027; 85610; 85730; 87040; 87077; 87086; 87186; 93005; 93010; 93880; 96360; 96361; 99285; J1644; J3490; J7050

== ENCOUNTER 2020-06-02 12:58 | Inpatient (IN) | payer MEDICARE, BC ==
--- NOTE | 2020-06-02 13:49 | ER Document Report ---
ED General - General Stated Complaint: ALTERED MENTAL STATUS Time Seen by Provider: 06/02/20 13:26 TRAVEL OUTSIDE OF THE [place] IN LAST 30 DAYS: No - HPI Notes: Patient is an 89-year-old female who presents with altered mental status. 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 She has been living at [facility]. From reports, the patient is normally alert and says short sentences. Yesterday, her nurse noticed that she was not drinking enough yesterday. This morning around 8:30am, she was alert and said "good morning" which is normal for her. Around 10 AM, she went to have speech therapy evaluate her as her nurse thought that she was having difficulty swallowing at 8:30 AM. The speech therapist said that she was not responding at 10 AM, but she would open her eyes. They sent her to the ER. They were able to give her a 500 cc of of normal saline and obtain labs. Patient is unable to provide a history. She will occasionally move her extremities. - Related Data Allergies/Adverse Reactions: No Known Allergies Allergy (Verified 04/21/20 07:17) Past Medical History - General Information source: Emergency Med Personnel Cannot obtain history due to: Altered mental status - Social History Smoking Status: Unknown if Ever Smoked Family History: Reviewed & Not Pertinent - Past Medical History Cardiac Medical History: Reports: Hx Hypertension Psychiatric Medical History: Denies: Hx Depression Review of Systems - Review of Systems -: Yes ROS unobtainable due to patient's medical condition Physical Exam - Vital signs Vitals: Resp 26 H 06/02/20 13:12 - General Notes: VITAL SIGNS: Tachycardic. GENERAL: Appears chronically ill. HEAD: Normal with no signs of head trauma. EYES: No discharge. NOSE: Normal. NECK: Supple, no lymphadenopathy, No adenopathy, no JVD. CHEST: Clear breath sounds bilaterally. CARDIAC: Regular rate and rhythm. VASCULAR: No Edema. ABDOMEN: Normal and soft with no tenderness LYMPATHTIC: No lymphadenopathy noted. MUSCULOSKELETAL: No obvious deformity. NEUROLOGICAL: Opens eyes to voice. SKIN: Normal appearance with no rashes or lesions. Course - Re-evaluation Re-evalutation: 06/02/20 13:49 I called the snf and spoke with the patient's nurse around 1:45 PM. This is how the HPI was obtained as patient is unable to provide a history. Patient did have a CVA diagnosed on April 22, 2020. The MRI was reviewed in the computer. Patient's last known well is unknown as the nurse stated that she was not quite herself at 8:30 AM and was having difficulty swallowing. Her symptoms worsened at 10 AM. However, patient is not a TPA candidate as she had a stroke recently. She is also not a TPA candidate due to unknown time of onset. We will obtain a head CT to further evaluate the altered mental status. I will also repeat lab work. 06/02/20 15:12 Nursing staff spoke to patient's niece who stated that she FaceTimed with the patient yesterday and noticed that she was not as talkative and looked very dry. I discussed with Dr. Fields from nephrology as patient is hypernatremic. She was hypernatremic at the snf labs today as well. I asked her about fluid recommendations. She recommended that patient receive 1/4 normal saline for 1 L bolus and then 150 mL an hour after that. She will need to have her sodium rechecked every 6 hours. 06/02/20 15:44 Patient has an elevated troponin which is changed from her previous. I discussed with Dr. Butler from cardiology who evaluated her EKG and her labs. He stated that from a cardiac standpoint, she does not need to be transferred for that elevated troponin. It might be elevated due to the tachycardia. I will discuss with the hospitalist. 06/02/20 16:49 06/02/20 16:56 I discussed with the hospitalist who will admit the patient. On reassessment, patient is becoming more alert. Her blood pressure is stable. Her heart rate has improved with fluids. 30 cc/kg sepsis fluids were not ordered due to patient's hypernatremia. Fluids were ordered based on consultation with the political anthropologist as documented above. Sepsis antibiotics were ordered. Patient has findings of pneumonia on her ct and has evidence of UTI. 06/02/20 20:23 - Vital Signs Vital signs: Temp Pulse Resp BP Pulse Ox 99.8 F 106 H 16 153/93 H 92 06/02/20 18:45 06/02/20 16:54 06/02/20 18:45 06/02/20 18:45 06/02/20 18:15 - Laboratory Results Result Diagrams: 06/02/20 16:14 06/02/20 13:25 Laboratory Results Interpreted: 06/02/20 06/02/20 06/02/20 13:25 13:45 16:14 WBC 18.1 H RBC 5.90 H Hgb 16.0 H Hct 51.9 H MCHC 30.9 L RDW 14.9 H Plt Count 100 L Lymph % (Auto) 6.7 L Absolute Neuts (auto) 15.8 H Seg Neutrophils % 87.3 H Sodium 164.6 H Chloride 126 H Carbon Dioxide 32 H BUN 83 H Creatinine 1.58 H Est GFR ( Amer) 37 L Est GFR (MDRD) Non-Af 31 L Glucose 476 H* Lactic Acid 3.1 H AST 204 H ALT 365 H Alkaline Phosphatase 128 H Urine Protein Urine Glucose (UA) Urine Blood Ur Leukocyte Esterase 06/02/20 16:48 WBC RBC Hgb Hct MCHC RDW Plt Count Lymph % (Auto) Absolute Neuts (auto) Seg Neutrophils % Sodium Chloride Carbon Dioxide BUN Creatinine Est GFR ( Amer) Est GFR (MDRD) Non-Af Glucose Lactic Acid AST ALT Alkaline Phosphatase Urine Protein 30 H Urine Glucose (UA) >=500 H Urine Blood MODERATE H Ur Leukocyte Esterase LARGE H Critical Laboratory Results Reviewed: Yes Attending or Supervising Physician who Reviewed Labs: ISRAEL STRONG - Radiology Results Critical Radiology Results Reviewed: No Critical Results - EKG Interpretation by Me EKG shows normal: Sinus rhythm Rate: Tachycardia Rhythm: NSR When compared to previous EKG there are: No significant change Additional EKG results interpreted by me: 06/02/20 14:43 Sinus tachycardia at a rate of 120. QTc 419. No acute ST changes. Artifact is present. No significant change from previous. Critical Care Note - Critical Care Note Total time excluding time spent on procedures (mins): 60 Comments: Upon my evaluation, this patient had a high probability of imminent or life- threatening deterioration due to sepsis, pneumonia, hypernatremia, which required my direct attention, intervention, and personal management. I have personally provided 60 minutes of critical care time. Time includes review of laboratory data, radiology results, discussion with consultants, and monitoring for potential decompensation. Interventions were performed as documented above Discharge - Discharge Clinical Impression: Hypernatremia, Healthcare-associated pneumonia, Hyperglycemia Altered mental status Qualifiers: Altered mental status type: unspecified Qualified Code(s): R41.82 - Altered mental status, unspecified Sepsis Qualifiers: Sepsis type: sepsis due to unspecified organism Sepsis acute organ dysfunction status: unspecified Qualified Code(s): A41.9 - Sepsis, unspecified organism UTI (urinary tract infection) Qualifiers: Urinary tract infection type: site unspecified Hematuria presence: without hematuria Qualified Code(s): N39.0 - Urinary tract infection, site not specified Condition: Serious Disposition: ADMITTED INPATIENT Admitting Provider: Eunice (Hospitalist) Unit Admitted: [facility]
[2020-06-02 14:08] LABS: PARTIAL THROMBOPLASTIN TIME 28.1 SEC (23.5-35.8)
[2020-06-02 14:11] LABS: INTERNATIONAL RATION (INR) 1.15; PROTHROMBIN TIME 14.9 SEC (11.4-15.4)
[2020-06-02 14:17] LABS: ALBUMIN 3.7 g/dL (3.5-5.0); ALKALINE PHOSPHATASE 128 U/L (38-126); ANION GAP 7 (5-19); ASPARTATE AMINO TRANSFERASE 204 U/L (14-36); BILIRUBIN,DIRECT 0.2 mg/dL (0.0-0.4); BILIRUBIN,TOTAL 0.8 mg/dL (0.2-1.3); BLOOD UREA NITROGEN 83 mg/dL (7-20); CALCIUM 9.7 mg/dL (8.4-10.2); CARBON DIOXIDE 32 mmol/L (22-30); CHLORIDE 126 mmol/L (98-107); CREATINE KINASE 51 U/L (30-135); POTASSIUM 4.1 mmol/L (3.6-5.0); TOTAL PROTEIN 6.8 g/dL (6.3-8.2)
[2020-06-02 14:25] LABS: GLUCOSE 476 mg/dL (75-110)
[2020-06-02 14:35] LABS: TROPONIN I 0.2 ng/mL
--- NOTE | 2020-06-02 14:43 | RADIOLOGY REPORT (SQ) ---
EXAM DESCRIPTION: CT HEAD WITHOUT IMAGES COMPLETED DATE/TIME: 06/02/2020 2:05 pm REASON FOR STUDY: bed 3 stroke alert COMPARISON: MR dated 04/22/2020. CT dated 04/20/2020. TECHNIQUE: Axial images acquired through the brain without intravenous contrast. Images reviewed wi th bone, brain and subdural windows. Additional sagittal and coronal reconstructions were generated. Images stored on PACS. All CT scanners at this facility use dose modulation, iterative reconstruction, and/or weight based d osing when appropriate to reduce radiation dose to as low as reasonably achievable (ALARA). [facility]: Dose Right [facility]: CareDose [facility]: Dose Right [facility]: Teradose 4D [facility]: Smart Personally RADIATION DOSE: CT Rad equipment meets quality standard of care and radiation dose reduction techniq ues were employed. CTDIvol: 53.2 mGy. DLP: 1044 mGy-cm. mGy. LIMITATIONS: None. FINDINGS: VENTRICLES: Normal size and contour. CEREBRUM: No masses. No hemorrhage. No midline shift. Old infarct in the left occipital lobe. No evidence for acute infarction. Extensive areas of low density in the white matter most likely chronic small vessel ischemic changes. CEREBELLUM: No masses. No hemorrhage. No alteration of density. No evidence for acute infarction. EXTRAAXIAL SPACES: No fluid collections. No masses. ORBITS AND GLOBE: No intra- or extraconal masses. Normal contour of globe without masses. CALVARIUM: No fracture. PARANASAL SINUSES: No fluid or mucosal thickening. SOFT TISSUES: No mass or hematoma. OTHER: No other significant finding. IMPRESSION: MICROVASCULAR ISCHEMIA AND GENERALIZED ATROPHY. 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 NO ACUTE IMAGING FINDINGS IN THE BRAIN EVIDENCE OF ACUTE STROKE: NO. COMMENT: Pertinent positive or negative findings of the imaging study reported as a CRITICAL EXAM neftali STRONG DO at14:36 on 06/02/2020. Category of Critical Exam: Stroke alert. Quality ID # 436: Final reports with documentation of one or more dose reduction techniques (e.g., Au tomated exposure control, adjustment of the mA and/or kV according to patient size, use of iterative reconstruction technique) TECHNICAL DOCUMENTATION: JOB ID: [id number] [employer]- All Rights Reserved Reading location - IP/workstation name: [email or web address]
--- NOTE | 2020-06-02 14:44 | RADIOLOGY REPORT (SQ) ---
EXAM DESCRIPTION: CHEST SINGLE VIEW IMAGES COMPLETED DATE/TIME: 06/02/2020 2:01 pm REASON FOR STUDY: bed 3 stroke alert COMPARISON: 04/20/2020. EXAM PARAMETERS: NUMBER OF VIEWS: One view. TECHNIQUE: Single frontal radiographic view of the chest acquired. RADIATION DOSE: NA LIMITATIONS: None. FINDINGS: LUNGS AND PLEURA: No opacities, masses or pneumothorax. No pleural effusion. MEDIASTINUM AND HILAR STRUCTURES: No masses. Contour normal. HEART AND VASCULAR STRUCTURES: Heart normal in size. Normal vasculature. BONES: No acute findings. HARDWARE: None in the chest. OTHER: No other significant finding. IMPRESSION: NO ACUTE RADIOGRAPHIC FINDING IN THE CHEST. TECHNICAL DOCUMENTATION: JOB ID: [id number] 2010 [employer]- All Rights Reserved Reading location - IP/workstation name: [email or web address]
[2020-06-02 14:48] LABS: CREATINE KINASE MB 2.53 ng/mL (<4.55)
[2020-06-02] MEDS ORDERED: CEFTRIAXONE 1 GM/D5W RTU 1 GM/50 ML RTUPB IV ONE (14:52)
[2020-06-02] MEDS ORDERED: WATER FOR INJECTION,STERILE 1,000 ML with SODIUM CHLORIDE 38.5 MEQ IV ONE ×2 (15:05)
[2020-06-02] MEDS ORDERED: INSULIN REG, HUMAN 100 UNIT/ML 3 ML VIAL (PYX) SUBCUT ONE (15:10)
[2020-06-02 15:31] LABS: VENOUS BLOOD HCO3 28.6 mmol/L (20-32); VENOUS BLOOD PCO2 56.6 mmHg (35-63); VENOUS BLOOD PH 7.32 (7.30-7.42)
[2020-06-02 16:22] LABS: ABSOLUTE BASOPHILS # (AUTO) 0.1 10^3/uL (0.0-0.2); ABSOLUTE LYMPHOCYTES (AUTO) 1.2 10^3/uL (0.5-4.7); ABSOLUTE NEUT (AUTO) 15.8 10^3/uL (1.7-8.2); BASOPHILS % (AUTO) 0.3 % (0-2); EOSINOPHILS % (AUTO) 0.1 % (0-6); HEMATOCRIT 51.9 % (36.0-47.0); LYMPHOCYTES % (AUTO) 6.7 % (13-45); MEAN CORPUSCULAR HEMOGLOBIN 27.2 pg (27.0-33.4); MEAN CORPUSCULAR HGB CONC 30.9 g/dL (32.0-36.0); MEAN CORPUSCULAR VOLUME 88 fl (80-97); MONOCYTES % (AUTO) 5.6 % (3-13); PLATELET COUNT 100 10^3/uL (150-450); RED CELL DISTRIBUTION WIDTH 14.9 % (11.5-14.0); SEGMENTED NEUTROPHILS % (AUTO) 87.3 % (42-78); TOTAL CELLS COUNTED % (AUTO) 100 %; WHITE BLOOD COUNT 18.1 10^3/uL (4.0-10.5)
--- NOTE | 2020-06-02 16:40 | RADIOLOGY REPORT (SQ) ---
EXAM DESCRIPTION: CT ABD/PELVIS NO ORAL OR IV IMAGES COMPLETED DATE/TIME: 06/02/2020 4:06 pm REASON FOR STUDY: sepsis, abnormal lfts, creatinine COMPARISON: None. TECHNIQUE: CT scan of the abdomen and pelvis performed without intravenous or oral contrast. Images reviewed with lung, soft tissue, and bone windows. Reconstructed coronal and sagittal MPR images revi ewed. All images stored on PACS. All CT scanners at this facility use dose modulation, iterative reconstruction, and/or weight based d osing when appropriate to reduce radiation dose to as low as reasonably achievable (ALARA). [facility]: Dose Right [facility]: CareDose [facility]: Dose Right [facility]: Teradose 4D [facility]: Smart [employer] RADIATION DOSE: CT Rad equipment meets quality standard of care and radiation dose reduction techniq ues were employed. CTDIvol: 7.6 mGy. DLP: 376 mGy-cm.. LIMITATIONS: None. FINDINGS: LOWER CHEST: Mild left lung base consolidation with fluid and cystic changes, considerati ons for these findings include infectious pneumonia. NON-CONTRASTED LIVER, SPLEEN, ADRENALS: Evaluation limited by lack of IV contrast. No identified sign ificant masses. PANCREAS: No masses. No peripancreatic inflammatory changes. GALLBLADDER: No identified stones by CT criteria. No inflammatory changes to suggest cholecystitis. RIGHT KIDNEY AND URETER: No suspicious masses. Assessment limited by lack of IV contrast. No signif icant calcifications. No hydronephrosis or hydroureter. LEFT KIDNEY AND URETER: Left renal exophytic cyst. No suspicious masses. Assessment limited by lack of IV contrast. No significant calcifications. No hydronephrosis or hydroureter. AORTA AND RETROPERITONEUM: No aneurysm. No retroperitoneal masses or adenopathy. BOWEL AND PERITONEAL CAVITY: Constipation. No free fluid. APPENDIX: Normal. PELVIS, BLADDER, AND ABDOMINAL WALL: Suprapubic catheter within the urinary bladder. A few foci of air within the dome of the urinary bladder likely related to the procedure. No free fluid. BONES: Old remote T10 compression deformity. OTHER: No other significant finding. IMPRESSION: 1. Mild left lung base consolidation with fluid and cystic changes, considerations for this finding includes infectious pneumonia. 2. Additional findings as above. COMMENT: Quality ID # 436: Final reports with documentation of one or more dose reduction techniques (e.g., Automated exposure control, adjustment of the mA and/or kV according to patient size, use of iterative reconstruction technique) TECHNICAL DOCUMENTATION: JOB ID: [id number] 2010 [employer]- All Rights Reserved Reading location - IP/workstation name: [email or web address]
[2020-06-02] MEDS ORDERED: AZITHROMYCIN INJ 500 MG VIAL IV ONE (16:41)
[2020-06-02] MEDS ORDERED: VANCOMYCIN HCL INJ 1000 MG VIAL IV ONE (16:42)
[2020-06-02 17:20] LABS: APPEARANCE,URINE SLIGHTLY-CLOUDY; BILIRUBIN,URINE NEGATIVE (NEGATIVE); COLOR,URINE YELLOW; GLUCOSE, URINE >=500 mg/dL (NEGATIVE); KETONES,URINE NEGATIVE (NEGATIVE); LEUKOCYTE ESTERASE,URINE LARGE (NEGATIVE); NITRITE,URINE NEGATIVE (NEGATIVE); PROTEIN,URINE 30 mg/dL (NEGATIVE); URINE SPECIFIC GRAVITY 1.022; UROBILINOGEN,URINE NEGATIVE mg/dL (<2.0)
[2020-06-02] MEDS: WATER FOR INJECTION,STERILE 1,000 ML with SODIUM CHLORIDE 38.5 MEQ IV PRN ×2 (18:02)
[2020-06-02] MEDS ORDERED: ONDANSETRON HCL INJ/PF 4 MG/2 ML SDV IV PRN (18:14)
[2020-06-02] MEDS ORDERED: DEXTROSE 40% GEL 15 GM TUBE PO PRN ×4 (18:14→18:33)
[2020-06-02] MEDS ORDERED: IPRATROPIUM/ALBUTEROL 0.5-2.5 MG/3 ML AMPUL NEB PRN (18:14)
[2020-06-02] MEDS ORDERED: GLUCAGON,HUMAN RECOMB 1 MG INJ SUBCUT PRN (18:14)
[2020-06-02] MEDS ORDERED: DEXTROSE 50%-WATER 25 GM/50 ML DISP.SYRIN IV PRN ×3 (18:14→18:33)
[2020-06-02] MEDS ORDERED: GLUCAGON,HUMAN RECOMB 1 MG INJ IM PRN (18:33)
[2020-06-02] MEDS ORDERED: INSULIN REG, HUMAN 100 UNIT/ML 3 ML VIAL (PYX) IV ONE (18:35)
[2020-06-02] MEDS ORDERED: PIPERACILLIN/TAZOBACTAM 3.375 GM VIAL IV SCH (21:00)
--- NOTE | 2020-06-02 21:17 | EKG REPORT ---
SEVERITY:- ABNORMAL ECG - SINUS TACHYCARDIA NONSPECIFIC T ABNORMALITIES, LATERAL LEADS SHORT ROSAMARIA , ACCELERATED AV CONDUCTION. : Confirmed by: Alfonzo Barboza MD 02-Jun-2020 21:16:12
--- NOTE | 2020-06-02 21:17 | PDOC H&P ---
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 Patient is unable to provide history so most of the history was obtained from her niece and from ED chart review. According to her niece Deidra nurses at [facility] told her that her aunt has not been eating or drinking a lot the past week. Deidra also mentioned that she was not as verbal as she had been a few weeks ago. Per ED notes her nurse yesterday noted that she has not been drinking. This morning around 8:30 PM the patient was apparently alert and was able to say good morning however at around 10 AM they noted that she was having difficulty swallowing and was not as responsive. Patient was then sent to the ED for further evaluation and management. In the ED vital signs 111/88, heart rate 1 9, respiratory rate 18, temperature 99.9, O2 sat 98% on room air. She is unable to provide any history. Metabolic panel showed that she has a sodium of 164.6, creatinine of 1.58, glucose of 476, lactate of 3.1. CBC showed WBC count of 18, hemoglobin 16, platelet count 100. ED physician consulted Dr. Fields for the hyponatremia and Dr. Fields recommended 1 L bolus of one fourth saline and to start one fourth saline at 150 mL/h. Patient was also given IV antibiotics for suspected UTI. CT of the head did not show any acute stroke. Past Medical History Cardiac Medical History: Reports: Hypertension Pulmonary Medical History: Reports: None EENT Medical History: Reports: None Neurological Medical History: Reports: Ischemic CVA GI Medical History: Reports: None Musculoskeltal Medical History: Reports: Arthritis Psychiatric Medical History: Reports: None Denies: Depression Hematology: Reports: Anemia Past Surgical History Past Surgical History: Reports: None Social History Smoking Status: Unknown if Ever Smoked Family History Family History: Reviewed & Not Pertinent Parental Family History Reviewed: No Children Family History Reviewed: No Sibling(s) Family History Reviewed.: No Medication/Allergy Home Medications: Amlodipine Besylate [Norvasc 5 mg Tablet] 5 mg PO DAILY 04/21/20 Aspirin [Ecotrin 81 mg EC Tablet] 81 mg PO DAILY 06/02/20 Atorvastatin Calcium [Lipitor 40 mg Tablet] 40 mg PO DAILY 06/02/20 Mirtazapine [Remeron 15 mg Tablet] 15 mg PO QHS 06/02/20 Allergies/Adverse Reactions: No Known Allergies Allergy (Verified 04/21/20 07:17) Review of Systems ROS unobtainable: Due to mental status Physical Exam Vital Signs: Temp Pulse Resp BP Pulse Ox 99.8 F 106 H 16 153/93 H 92 06/02/20 18:45 06/02/20 16:54 06/02/20 18:45 06/02/20 18:45 06/02/20 18:15 Intake & Output 06/01/20 06/02/20 06/03/20 06:59 06:59 06:59 Intake Total 50 Balance 50 General appearance: PRESENT: no acute distress, thin Head exam: PRESENT: atraumatic, normocephalic Eye exam: PRESENT: EOMI, PERRLA Mouth exam: PRESENT: dry mucosa, other Respiratory exam: PRESENT: clear to auscultation francine, symmetrical, unlabored Cardiovascular exam: PRESENT: RRR, +S1, +S2 GI/Abdominal exam: PRESENT: normal bowel sounds, soft. ABSENT: rebound, tenderness Extremities exam: ABSENT: +2 edema Neurological exam: PRESENT: other - lethargic Skin exam: PRESENT: normal color Results Laboratory Results: 06/02/20 16:14 06/02/20 13:25 06/02/20 06/02/20 06/02/20 13:25 13:25 13:45 WBC Cancelled RBC Cancelled Hgb Cancelled Hct Cancelled MCV Cancelled MCH Cancelled MCHC Cancelled RDW Cancelled Plt Count Cancelled Seg Neutrophils % Cancelled VBG pH VBG pCO2 VBG HCO3 VBG Base Excess Sodium 164.6 H Potassium 4.1 Chloride 126 H Carbon Dioxide 32 H Anion Gap 7 BUN 83 H Creatinine 1.58 H Est GFR ( Amer) 37 L Glucose 476 H* Lactic Acid 3.1 H Calcium 9.7 Total Bilirubin 0.8 AST 204 H Alkaline Phosphatase 128 H Total Protein 6.8 Albumin 3.7 Urine Color Urine Appearance Urine pH Ur Specific [place] Urine Protein Urine Glucose (UA) Urine Ketones Urine Blood Urine Nitrite Ur Leukocyte Esterase Urine WBC (Auto) Urine RBC (Auto) 06/02/20 06/02/20 06/02/20 13:45 16:14 16:48 WBC 18.1 H RBC 5.90 H Hgb 16.0 H Hct 51.9 H MCV 88 MCH 27.2 MCHC 30.9 L RDW 14.9 H Plt Count 100 L Seg Neutrophils % 87.3 H VBG pH 7.32 VBG pCO2 56.6 VBG HCO3 28.6 VBG Base Excess 1.0 Sodium Potassium Chloride Carbon Dioxide Anion Gap BUN Creatinine Est GFR ( Amer) Glucose Lactic Acid Calcium Total Bilirubin AST Alkaline Phosphatase Total Protein Albumin Urine Color YELLOW Urine Appearance SLIGHTLY-CLOUDY Urine pH 6.0 Ur Specific [place] 1.022 Urine Protein 30 H Urine Glucose (UA) >=500 H Urine Ketones NEGATIVE Urine Blood MODERATE H Urine Nitrite NEGATIVE Ur Leukocyte Esterase LARGE H Urine WBC (Auto) >182 Urine RBC (Auto) 14 06/02/20 06/02/20 06/02/20 13:25 13:25 18:00 Creatine Kinase 51 CK-MB (CK-2) 2.53 Troponin I 0.200 Cancelled Impressions: Chest X-Ray 06/02/20 13:19 IMPRESSION: NO ACUTE RADIOGRAPHIC FINDING IN THE CHEST. Head CT 06/02/20 13:19 IMPRESSION: MICROVASCULAR ISCHEMIA AND GENERALIZED ATROPHY. 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 NO ACUTE IMAGING FINDINGS IN THE BRAIN EVIDENCE OF ACUTE STROKE: NO. Abdomen/Pelvis CT 06/02/20 15:43 IMPRESSION: 1. Mild left lung base consolidation with fluid and cystic ch anges, considerations for this finding includes infectious pneumonia. 2. Additional findings as above. 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 According to the niece her appetite has been poor the past week. -Likely she looks very dehydrated with dry mucosa and poor skin turgor. This is likely the cause of her hyponatremia - Free water deficit 4.5L - s/p 1L of 14/ saline per nephro - goal Na correction not more than 10 meq in 24 hrs - currently receiving 150 ml of 1/4 saline - nephro following - BMP q6 (3) Hypertension Qualifiers: Hypertension type: essential hypertension Qualified Code(s): I10 - Essential (primary) hypertension Is this a current diagnosis for this admission?: Yes Plan: - will resume amlodipine when she is more awake (4) Hyperglycemia Is this a current diagnosis for this admission?: Yes Plan: - BG 476 - s/p 8u IV insulin - accucheck q6 and sliding scale insulin q6 - started her on lantus 10 u BID as well (5) DIEGO (acute kidney injury) Is this a current diagnosis for this admission?: Yes Plan: - Crea 1.58 baseline normal 0.8 - most likely pre renal given her presentation - currently on 1/4 saline for hypernatremia - will monitor daily (6) UTI (urinary tract infection) Qualifiers: Urinary tract infection type: site unspecified Hematuria presence: without hematuria Qualified Code(s): N39.0 - Urinary tract infection, site not specified Is this a current diagnosis for this admission?: Yes Plan: - per UA moderate blood, large leukocyte esterase, WBC more than 182 -Started on Zosyn since she was in the hospital 4 weeks ago -Waiting culture -continue IV fluids (7) CVA (cerebral vascular accident) Qualifiers: CVA mechanism: occlusion Precerebral and cerebral artery: posterior cerebral artery Laterality of affected vessel: left Qualified Code(s): I63.532 - 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 Is this a current diagnosis for this admission?: Yes Plan: -Left RADIO OPERATOR stroke April 2020, residual right-sided weakness -Repeat CT head negative -Aspirin suppository for now since she is lethargic (8) Elevated troponin Is this a current diagnosis for this admission?: Yes Plan: -Troponin 0.2 -EKG sinus tachycardia no ST elevation -Likely demand ischemia or secondary to her DIEGO from dehydration -We will trend troponin (9) Transaminitis Is this a current diagnosis for this admission?: Yes Plan: -AST 204, ALT 365, ALP 128 -This is likely from dehydration -We will monitor for now and repeat CMP tomorrow (10) Right sided weakness Is this a current diagnosis for this admission?: Yes Plan: -Recent left RADIO OPERATOR stroke with residual right-sided weakness - Time Time Spent with patient: 25-34 minutes Medications reviewed and adjusted accordingly: Yes Anticipated Discharge Disposition: Half-Way Facility Anticipated Discharge Timeframe: TBD - Inpatient Certification Based on my medical assessment, after consideration of the patient's comorbidities, presenting symptoms, or acuity I expect that the services needed warrant INPATIENT care.: Yes I certify that my determination is in accordance with my understanding of Medicare's requirements for reasonable and necessary INPATIENT services [42 CFR 412.3e].: Yes Medical Necessity: Need For IV Fluids
[2020-06-02] MEDS: INSULIN GLARGINE,HUM.REC.ANLOG 1,000 UNIT/10 ML VIAL SUBCUT SCH (22:58)
[2020-06-02] MEDS: HEPARIN SOD (PORCINE) 5,000 UNIT/ML 1 ML VIAL SUBCUT SCH (22:58)
[2020-06-02] MEDS: INSULIN REG, HUMAN 100 UNIT/ML 3 ML VIAL (PYX) SUBCUT SCH (23:03)
[2020-06-03 00:07] LABS: ARTERIAL BLOOD BASE EXCESS -1.2 mmol/L; ARTERIAL BLOOD H2CO3 1.07 mmol/L (1.05-1.35); ARTERIAL BLOOD HCO3 22.6 mmol/L (20-24); ARTERIAL BLOOD O2 SATURATION 99.8 % (94-98); ARTERIAL BLOOD PCO2 35.6 mmHg (35-45); ARTERIAL BLOOD PH 7.42 (7.35-7.45); ARTERIAL BLOOD PO2 415.5 mmHg (80-100); ARTERIAL BLOOD TOTAL CO2 23.7 mmol/L (21-25)
[2020-06-03 00:20] LABS: ARTERIAL BLOOD FIO2 15L
[2020-06-03] MEDS: PIPERACILLIN SODIUM/TAZOBACTAM 3.375 GM in NORMAL SALINE 100 ML IV SCH ×4 (02:06→17:36)
[2020-06-03] MEDS: INSULIN REG, HUMAN 100 UNIT/ML 3 ML VIAL (PYX) SUBCUT SCH ×4 (02:23→22:00)
--- NOTE | 2020-06-03 06:10 | Operative Report ---
Nonrecallable Operative Report DATE OF SURGERY: 06/03/20 PREOPERATIVE DIAGNOSIS: sever dehydration POSTOPERATIVE DIAGNOSIS: same OPERATION: central line placment left femoral vein SURGEON: RYAN FUCHS ANESTHESIA: Local TISSUE REMOVED OR ALTERED: none COMPLICATIONS: none ESTIMATED BLOOD LOSS: 5cc INTRAOPERATIVE FINDINGS: see note PROCEDURE: This is an 89-year-old female who is severely dehydrated a line needs to be placed for obtaining blood for sampling. Patient was placed in a Trendelenburg position and the right neck was prepped and draped in usual sterile fashion. Using the ultrasound we were able to identify the right internal jugular vein. After anesthetizing the skin over the sternocleidomastoid muscle with 1% lidocaine plain a attempt at the access to the right internal jugular vein was made. Using 16-gauge needle multiple attempts at finding the vein were unsuccessful. Therefore the site was abandoned. The left groin was prepped and draped in usual sterile fashion. Using 1% lidocaine plain we anesthetized the skin over the left femoral pulse. Then just medial to the pulse the femoral vein was accessed with a 16-gauge needle. A wire was placed. The needle was removed and over the wire dilator was utilized to dilate the tract. A triple-lumen 16 Nigerien catheter was placed over the wire into the internal iliac vein and to the vena cava. The catheter flushed and withdrew easily. He was fixed to the skin with 2-0 silk. A sterile dressing was applied which completed the procedure. Estimated blood loss was less than 5 cc.
[2020-06-03] MEDS: HEPARIN SOD (PORCINE) 5,000 UNIT/ML 1 ML VIAL SUBCUT SCH ×3 (07:02→21:25)
[2020-06-03 07:05] LABS: ANION GAP 7 (5-19); BLOOD UREA NITROGEN 89 mg/dL (7-20); CALCIUM 8.4 mg/dL (8.4-10.2); CARBON DIOXIDE 25 mmol/L (22-30); CHLORIDE 121 mmol/L (98-107); GLUCOSE 226 mg/dL (75-110); POTASSIUM 3.4 mmol/L (3.6-5.0)
[2020-06-03] MEDS: INSULIN GLARGINE,HUM.REC.ANLOG 1,000 UNIT/10 ML VIAL SUBCUT SCH ×2 (10:47→21:25)
[2020-06-03] MEDS: ASPIRIN 300 MG SUPP, RECTAL PR SCH (12:46)
[2020-06-03 12:50] LABS: ANION GAP 10 (5-19); BLOOD UREA NITROGEN 90 mg/dL (7-20); CARBON DIOXIDE 26 mmol/L (22-30); CHLORIDE 120 mmol/L (98-107); GLUCOSE 155 mg/dL (75-110); POTASSIUM 3.9 mmol/L (3.6-5.0)
[2020-06-03] MEDS: WATER FOR INJECTION,STERILE 1,000 ML with SODIUM CHLORIDE 38.5 MEQ IV PRN ×2 (12:53)
[2020-06-03] MEDS ORDERED: WATER FOR INJECTION,STERILE 1,000 ML with SODIUM CHLORIDE 38.5 MEQ IV PRN ×4 (16:40→20:24)
--- NOTE | 2020-06-03 17:43 | PDOC PROGRESS REPORT ---
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 Patient is unable to provide history so most of the history was obtained from her niece and from ED chart review. According to her niece Deidra nurses at [place] told her that her aunt has not been eating or drinking a lot the past week. Deidra also mentioned that she was not as verbal as she had been a few weeks ago. Per ED notes her nurse yesterday noted that she has not been drinking. This morning around 8:30 PM the patient was apparently alert and was able to say good morning however at around 10 AM they noted that she was having difficulty swallowing and was not as responsive. Patient was then sent to the ED for further evaluation and management. In the ED vital signs 111/88, heart rate 1 9, respiratory rate 18, temperature 99.9, O2 sat 98% on room air. She is unable to provide any history. Metabolic panel showed that she has a sodium of 164.6, creatinine of 1.58, glucose of 476, lactate of 3.1. CBC showed WBC count of 18, hemoglobin 16, platelet count 100. ED physician consulted Dr. Fields for the hyponatremia and Dr. Fields recommended 1 L bolus of one fourth saline and to start one fourth saline at 150 mL/h. Patient was also given IV antibiotics for suspected UTI. CT of the head did not show any acute stroke. D2 hospital stay Patient was seen and examined at bedside. She is still very lethargic and obtunded. A central line was placed because it has been very difficult to get blood from her. Sodium decreased from 164 to 153, still currently on 1/4 saline. I have spoken to her niece and primary caregiver Deidra. I informed her the she is still very lethargic and this is likely still due to her hypernatremia as well as sepsis from UTI. Unfortunately with her recent stroke and her age, I am worried that her mental status might not recover and her morbidity adn mortality is very high. I discussed changing her code status to DNR/DNI and consider transitioning her to hospice if the current medical management is not working. Deidra stated that she has discussed the matter with the patients other siblings and they agreed that she would want to pass peacefully and " not suffer". Plan to continue medical management with abx and IV fluids and will re assess her the next few days. Reason For Visit: HYPERNATREMIA Physical Exam Vital Signs: Temp Pulse Resp BP Pulse Ox 99.1 F 104 H 14 115/55 L 100 06/03/20 11:33 06/03/20 14:00 06/03/20 11:33 06/03/20 11:33 06/03/20 11:33 Intake & Output 06/02/20 06/03/20 06/04/20 06:59 06:59 06:59 Intake Total 50 Output Total 100 220 Balance -50 -220 Weight 52.3 kg General appearance: PRESENT: no acute distress, other - very lethargic, unable to respond to questions Head exam: PRESENT: atraumatic, normocephalic Eye exam: PRESENT: EOMI, PERRLA Mouth exam: PRESENT: dry mucosa Respiratory exam: PRESENT: clear to auscultation francine, symmetrical, unlabored Cardiovascular exam: PRESENT: RRR, +S1, +S2 Pulses: PRESENT: +2 pedal pulses bilateral GI/Abdominal exam: PRESENT: normal bowel sounds, soft. ABSENT: rebound, tenderness Extremities exam: ABSENT: +2 edema Musculoskeletal exam: PRESENT: normal inspection Neurological exam: PRESENT: altered, other - obtunded but localize to pain Skin exam: PRESENT: normal color Results Laboratory Results: 06/02/20 16:14 06/03/20 12:14 06/02/20 06/02/20 06/02/20 23:25 23:25 23:25 Carbonic Acid 1.07 HCO3/H2CO3 Ratio 21:1 ABG pH 7.42 ABG pCO2 35.6 ABG pO2 415.5 H ABG HCO3 22.6 ABG O2 Saturation 99.8 H ABG Base Excess -1.2 FiO2 15L Sodium Cancelled Potassium Cancelled Chloride Cancelled Carbon Dioxide Cancelled Anion Gap Cancelled BUN Cancelled Creatinine Cancelled Est GFR ( Amer) Cancelled Est GFR (Non-Af Amer) Cancelled Glucose Cancelled Lactic Acid Cancelled Calcium Cancelled 06/02/20 06/02/20 06/03/20 23:59 23:59 06:10 Carbonic Acid HCO3/H2CO3 Ratio ABG pH ABG pCO2 ABG pO2 ABG HCO3 ABG O2 Saturation ABG Base Excess FiO2 Sodium Cancelled 153.3 H Potassium Cancelled 3.4 L Chloride Cancelled 121 H Carbon Dioxide Cancelled 25 Anion Gap Cancelled 7 BUN Cancelled 89 H Creatinine Cancelled 1.95 H Est GFR ( Amer) Cancelled 29 L Est GFR (Non-Af Amer) Cancelled Glucose Cancelled 226 H Lactic Acid 9.0 H Calcium Cancelled 8.4 06/03/20 12:14 Carbonic Acid HCO3/H2CO3 Ratio ABG pH ABG pCO2 ABG pO2 ABG HCO3 ABG O2 Saturation ABG Base Excess FiO2 Sodium 155.6 H Potassium 3.9 Chloride 120 H Carbon Dioxide 26 Anion Gap 10 BUN 90 H Creatinine 2.00 H Est GFR ( Amer) 28 L Est GFR (Non-Af Amer) Glucose 155 H Lactic Acid Calcium 9.0 06/02/20 06/02/20 06/02/20 13:25 13:25 18:00 Creatine Kinase 51 CK-MB (CK-2) 2.53 Troponin I 0.200 Cancelled 06/02/20 06/02/20 06/03/20 23:25 23:59 06:10 Creatine Kinase CK-MB (CK-2) Troponin I Cancelled Cancelled 0.567 Impressions: Chest X-Ray 06/02/20 13:19 IMPRESSION: NO ACUTE RADIOGRAPHIC FINDING IN THE CHEST. Head CT 06/02/20 13:19 IMPRESSION: MICROVASCULAR ISCHEMIA AND GENERALIZED ATROPHY. 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 NO ACUTE IMAGING FINDINGS IN THE BRAIN EVIDENCE OF ACUTE STROKE: NO. Abdomen/Pelvis CT 06/02/20 15:43 IMPRESSION: 1. Mild left lung base consolidation with fluid and cystic changes, considerations for this finding includes infectious pneumonia. 2. Additional findings as above. 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 According to the niece her appetite has been poor the past week. -Likely she looks very dehydrated with dry mucosa and poor skin turgor. This is likely the cause of her hyponatremia - Free water deficit 4.5L - s/p 1L of 1/4 saline per nephro - goal Na correction not more than 10 meq in 24 hrs - currently receiving 100 ml of 1/4 saline - nephro following - BMP q6 (3) Hypertension Qualifiers: Hypertension type: essential hypertension Qualified Code(s): I10 - E ssential (primary) hypertension Is this a current diagnosis for this admission?: Yes Plan: - will resume amlodipine when she is more awake (4) Hyperglycemia Is this a current diagnosis for this admission?: Yes Plan: - BG 476>155 - s/p 8u IV insulin - accucheck q6 and sliding scale insulin q6 - started her on lantus 10 u BID as well (5) DIEGO (acute kidney injury) Is this a current diagnosis for this admission?: Yes Plan: - Crea 1.58>2.0 baseline normal 0.8 - most likely pre renal given her presentation - currently on 1/4 saline for hypernatremia - will monitor daily (6) UTI (urinary tract infection) Qualifiers: Urinary tract infection type: site unspecified Hematuria presence: without hematuria Qualified Code(s): N39.0 - Urinary tract infection, site not specified Is this a current diagnosis for this admission?: Yes Plan: - per UA moderate blood, large leukocyte esterase, WBC more than 182 -Started on Zosyn since she was in the hospital 4 weeks ago -Waiting culture -continue IV fluids (7) CVA (cerebral vascular accident) Qualifiers: CVA mechanism: occlusion Precerebral and cerebral artery: posterior cerebral artery Laterality of affected vessel: left Qualified Code(s): I63.532 - 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 Is this a current diagnosis for this admission?: Yes Plan: -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, residual right-sided weakness -Repeat CT head negative -Aspirin suppository for now since she is lethargic (8) Elevated troponin Is this a current diagnosis for this admission?: Yes Plan: -Troponin 0.2>0.56 -EKG sinus tachycardia no ST elevation -Likely demand ischemia or secondary to her DIEGO from dehydration -We will trend troponin (9) Transaminitis Is this a current diagnosis for this admission?: Yes Plan: -AST 204, ALT 365, ALP 128 -This is likely from dehydration -We will monitor for now and repeat CMP tomorrow (10) Right sided weakness Is this a current diagnosis for this admission?: Yes Plan: -Recent left 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 She is also suffered a recent strok e about 4 weeks ago. Currently being treated for hyponatremia with IV fluids and antibiotics for UTI. She is still very obtunded and lethargic. I have spoken to Deidra her niece and primary caregiver and discussed her high morbidity and mortality given recent stroke and hyponatremia. She agreed to change the CODE STATUS to DNR/DNI and to continue with current medical management with the understanding that if she does not improve or cannot get better in the next days that she will be transition to comfort care and eventually hospice. - Time Time Spent with patient: 25-34 minutes Medications reviewed and adjusted accordingly: Yes Anticipated Discharge Disposition: Snf Facility Anticipated Discharge Timeframe: tbd
--- NOTE | 2020-06-03 17:51 | ADVANCED CARE ---
- Diagnosis (1) Acute metabolic encephalopathy Diagnosis Current: Yes (2) Hypernatremia Diagnosis Current: Yes (3) Hypertension Diagnosis Current: Yes (4) Hyperglycemia Diagnosis Current: Yes (5) DIEGO (acute kidney injury) Diagnosis Current: Yes (6) UTI (urinary tract infection) Diagnosis Current: Yes (7) CVA (cerebral vascular accident) Diagnosis Current: Yes (8) Elevated troponin Diagnosis Current: Yes (9) Transaminitis Diagnosis Current: Yes (10) Right sided weakness Diagnosis Current: Yes Attendance: deidra (tamir) and Cristopher Resuscitation Status: Do Not Resuscitate Discussion: Face to face meeting was done with tamir Gay who has been the patients primary customer care coordinator even before the stroke. Discussed with her the patients current state and high morbidity and mortality from her hypernatremia, UTI and recent stroke. She states that she has talked to the patients other siblings as well and they have agreed that the patient would not want to suffer long and they agree that changing her code status to DNR/DNI is appropriate. I also discussed with her that if she continues to decline despite current medial management, that her care not be further escalated and that she can be made comfort care. Deidra agreed to this plan as well. Code status changed to D NR/DNI Care Planning Goals: CODE status discussion and possible transition to comfort care. Document(s) Completed: none Time Spent: >16 min of face to face discussion
[2020-06-03 19:09] LABS: ANION GAP 10 (5-19); BLOOD UREA NITROGEN 92 mg/dL (7-20); CALCIUM 8.4 mg/dL (8.4-10.2); CARBON DIOXIDE 21 mmol/L (22-30); CHLORIDE 121 mmol/L (98-107); GLUCOSE 83 mg/dL (75-110); POTASSIUM 3.3 mmol/L (3.6-5.0)
[2020-06-03] MEDS: POTASSI CL 20 MEQ/50 ML RIDER 20 MEQ/50 ML RTUPB IV SCH ×2 (21:24→23:46)
--- NOTE | 2020-06-03 21:27 | PDOC CONSULTATION ---
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 History is mostly obtained from the patient's records as the patient is unable to give any kind of history at this point. Per admitting notes the patient's niece was apparently told admitting physician to the patient has not been eating or drinking a lot for the past week. Her mental status is also slowly declined. She was noted to be unresponsive with [facility] and so she was brought to the ED. Initial evaluation showed a sodium of 164.6, chloride of 126, bicarbonate of 32, BUN of 83, creatinine of 1.58 with EGFR of 35. Her urinalysis showed protein of 30, glucose of greater than or equal to 500, moderate blood with large leukocyte esterase, WBC greater than 182 with RBC of 14 and epithelial cells less than 1. He tested negative for Covid. He was given empiric treatment for possible UTI with IV ceftriaxone and vancomycin in the ED and is currently changed to IV Zosyn. I was called from the ED yesterday for recommendations regarding the hypernatremia. I recommended a bolus of 1 L of 1/4 saline saline solution considering the patient's initial hyperglycemia blood glucose of 476 and dehydration. I also recommended a maintenance dose of the same 1 Fort saline solution at 150 mL an hour and to monitor for the patient sodium level at least every 6 hours. When I entered the room the patient appears to be very lethargic but when I said hello the patient said hello back to me. She was able to tell me her name but n ot much after that. Her urine output yesterday was 100 mL and so far today had made 220 mL but she does not have a Green catheter. Repeat labs at around 12:14 PM today showed a sodium of 155.6, BUN of 90 and creatinine of 2.0 with EGFR of 28. Rate of her IV fluid was decreased to 100 mL an hour at this time. Review of records showed that on April 29, 2020 the patient had a BUN of 27, creatin ine of 0.99 with EGFR of 59-68. Past Medical History Cardiac Medical History: Reports: Hyperlipidemia, Hypertension-primary Neurological Medical History: Reports: Ischemic CVA Musculoskeltal Medical History: Reports: Arthritis Past Surgical History Past Surgical History: Reports: None Social History Information Source: [facility] Records Lives with: Prison Smoking Status: Unknown if Ever Smoked Electronic Cigarette use?: No Frequency of Alcohol Use: None Hx Recreational Drug Use: No - Advance Directive Resuscitation Status: Do Not Resuscitate Family History Family History: Unable to obtain due to patient's mental status. Parental Family History Reviewed: No Children Family History Reviewed: No Sibling(s) Family History Reviewed.: No Medication/Allergy Home Medications: Amlodipine Besylate [Norvasc 5 mg Tablet] 5 mg PO DAILY 04/21/20 Aspirin [Ecotrin 81 mg EC Tablet] 81 mg PO DAILY 06/02/20 Atorvastatin Calcium [Lipitor 40 mg Tablet] 40 mg PO DAILY 06/02/20 Mirtazapine [Remeron 15 mg Tablet] 15 mg PO QHS 06/02/20 Allergies/Adverse Reactions: No Known Allergies Allergy (Verified 04/21/20 07:17) Review of Systems ROS unobtainable: Due to mental status Physical Exam Vital Signs: Temp Pulse Resp BP Pulse Ox 99.1 F 104 H 14 115/55 L 100 06/03/20 11:33 06/03/20 14:00 06/03/20 11:33 06/03/20 11:33 06/03/20 11:33 Intake & Output 06/02/20 06/03/20 06/04/20 06:59 06:59 06:59 Intake Total 50 Output Total 100 220 Balance -50 -220 Weight 52.3 kg Exam: General appearance: No acute distress, lethargic and mildly arousable with very minimal response y Head exam: PRESENT: atraumatic, normocephalic Eye exam: PRESENT: Conjunctiva Higgins, EOMI, PERRLA. ABSENT: conjunctival injecti on, scleral icterus Mouth exam: PRESENT: moist, neck supple, tongue midline Neck exam: PRESENT: full ROM. ABSENT: carotid bruit, JVD, lymphadenopathy, thyromegaly Respiratory exam: PRESENT: Diminished to auscultation bilaterally. ABSENT: rales, rhonchi, stridor, wheezes Cardiovascular exam: PRESENT: RRR, +S1, +S2. ABSENT: systolic murmur Pulses: PRESENT: normal radial pulses, normal dorsalis pedis pulses GI/Abdominal exam: PRESENT: normal bowel sounds, soft. ABSENT: guarding, mass, tenderness Rectal exam: Deferred Extremities exam: ABSENT: calf tenderness, pedal edema Musculoskeletal: ABSENT: deformity Neurological exam: PRESENT: Lethargic, oriented to person, but not to place and time, baseline reported right sided weakness Psychiatric exam: PRESENT: Cannot be assessed at this time Skin exam: PRESENT: intact, dry, warm. ABSENT: rash Results Laboratory Results: 06/02/20 16:14 06/03/20 12:14 06/02/20 06/02/20 06/02/20 16:48 23:25 23:25 Carbonic Acid HCO3/H2CO3 Ratio ABG pH ABG pCO2 ABG pO2 ABG HCO3 ABG O2 Saturation ABG Base Excess FiO2 Sodium Cancelled Potassium Cancelled Chloride Cancelled Carbon Dioxide Cancelled Anion Gap Cancelled BUN Cancelled Creatinine Cancelled Est GFR ( Amer) Cancelled Est GFR (Non-Af Amer) Cancelled Glucose Cancelled Lactic Acid Cancelled Calcium Cancelled Urine Color YELLOW Urine Appearance SLIGHTLY-CLOUDY Urine pH 6.0 Ur Specific Fifty Six 1.022 Urine Protein 30 H Urine Glucose (UA) >=500 H Urine Ketones NEGATIVE Urine Blood MODERATE H Urine Nitrite NEGATIVE Ur Leukocyte Esterase LARGE H Urine WBC (Auto) >182 Urine RBC (Auto) 14 06/02/20 06/02/20 06/02/20 23:25 23:59 23:59 Carbonic Acid 1.07 HCO3/H2CO3 Ratio 21:1 ABG pH 7.42 ABG pCO2 35.6 ABG pO2 415.5 H ABG HCO3 22.6 ABG O2 Saturation 99.8 H ABG Base Excess -1.2 FiO2 15L Sodium Cancelled Potassium Cancelled Chloride Cancelled Carbon Dioxide Cancelled Anion Gap Cancelled BUN Cancelled Creatinine Cancelled Est GFR ( Amer) Cancelled Est GFR (Non-Af Amer) Cancelled Glucose Cancelled Lactic Acid 9.0 H Calcium Cancelled Urine Color Urine Appearance Urine pH Ur Specific Fifty Six Urine Protein Urine Glucose (UA) Urine Ketones Urine Blood Urine Nitrite Ur Leukocyte Esterase Urine WBC (Auto) Urine RBC (Auto) 06/03/20 06/03/20 06:10 12:14 Carbonic Acid HCO3/H2CO3 Ratio ABG pH ABG pCO2 ABG pO2 ABG HCO3 ABG O2 Saturation ABG Base Excess FiO2 Sodium 153.3 H 155.6 H Potassium 3.4 L 3.9 Chloride 121 H 120 H Carbon Dioxide 25 26 Anion Gap 7 10 BUN 89 H 90 H Creatinine 1.95 H 2.00 H Est GFR ( Amer) 29 L 28 L Est GFR (Non-Af Amer) Glucose 226 H 155 H Lactic Acid Calcium 8.4 9.0 Urine Color Urine Appearance Urine pH Ur Specific Fifty Six Urine Protein Urine Glucose (UA) Urine Ketones Urine Blood Urine Nitrite Ur Leukocyte Esterase Urine WBC (Auto) Urine RBC (Auto) 06/02/20 06/02/20 06/02/20 13:25 13:25 18:00 Creatine Kinase 51 CK-MB (CK-2) 2.53 Troponin I 0.200 Cancelled 06/02/20 06/02/20 06/03/20 23:25 23:59 06:10 Creatine Kinase CK-MB (CK-2) Troponin I Cancelled Cancelled 0.567 Impressions: Chest X-Ray 06/02/20 13:19 IMPRESSION: NO ACUTE RADIOGRAPHIC FINDING IN THE CHEST. Head CT 06/02/20 13:19 IMPRESSION: MICROVASCULAR ISCHEMIA AND GENERALIZED ATROPHY. 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 NO ACUTE IMAGING FINDINGS IN THE BRAIN EVIDENCE OF ACUTE STROKE: NO. Abdomen/Pelvis CT 06/02/20 15:43 IMPRESSION: 1. Mild left lung base consolidation with fluid and cystic changes, considerations for this finding includes infectious pneumonia. 2. Additional findings as above. Assessment & Plan - Diagnosis (1) Hypernatremia Is this a current diagnosis for this admission?: Yes Plan: Secondary to severe dehydration due to poor oral intake. Repeat BMP later tonight. Continue 1/4 saline, rate to be adjusted accordingly depending on sodium level. Avoid overcorrection of sodium level to more than 10 mEq/day. Monitor electrolytes serially. (2) DIEGO (acute kidney injury) Is this a current diagnosis for this admission?: Yes Plan: Most likely secondary to acute prerenal azotemia with severe dehydration. No associated significant proteinuria with some microhematuria which could be r elated to possible UTI. CT scan of the abdomen did not show any evidence of hydronephrosis no hydroureter on both kidneys. However it is surprising that while the sodium level is improving her kidney function is actually worsening. There does not seem to be any other precipitating factors at this time. Insert Green catheter and monitor intake and output more accurately. Also needs to consider urinary retention. At this time there is no indication for renal replacement therapy. Avoid nephrotoxic medications. Monitor kidney function. (3) Acute metabolic encephalopathy Is this a current diagnosis for this admission?: Yes Plan: Most likely secondary to hypernatremia and DIEGO. Possible underlying infection could be a contributory factor as well. (4) Hyperglycemia Is this a current diagnosis for this admission?: Yes Plan: Management per hospitalist. (5) Hypertension Qualifiers: Hypertension type: essential hypertension Qualified Code(s): I10 - Essential (primary) hypertension Is this a current diagnosis for this admission?: Yes Plan: Controlled. (6) Transaminitis Is this a current diagnosis for this admission?: Yes (7) UTI (urinary tract infection) Qualifiers: Urinary tract infection type: site unspecified Hematuria presence: without hematuria Qualified Code(s): N39.0 - Urinary tract infection, site not specified Is this a current diagnosis for this admission?: Yes Plan: Received 1 dose of IV ceftriaxone and IV vancomycin in the ED. Currently on IV Zosyn, decrease dose to 2.25 g every 6 hours per kidney function. Urine and blood cultures so far negative at this point. 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 - Notes Notes: Thank you much for this consultation. Discussed the case with Dr. Dawson.
[2020-06-03] MEDS ORDERED: DEXTROSE 5%-1/4 NORMAL SALINE 1,000 ML IV PRN (21:48)
[2020-06-04] MEDS ORDERED: PIPERACILLIN SODIUM/TAZOBACTAM 2.25 GM in NORMAL SALINE 100 ML IV SCH ×2
[2020-06-04] MEDS: PIPERACILLIN SODIUM/TAZOBACTAM 2.25 GM in NORMAL SALINE 50 ML IV SCH ×5 (01:00→23:57)
--- NOTE | 2020-06-04 01:34 | RADIOLOGY REPORT (SQ) ---
EXAM DESCRIPTION: XR CHEST 1 VIEW COMPLETED DATE/TME: 06/04/2020 00:58 CLINICAL HISTORY: 89 years, Female, central ine placement COMPARISON: 06/02/2020 chest NUMBER OF VIEWS: 1 TECHNIQUE: Portable chest LIMITATIONS: None. FINDINGS: The heart size is normal. Osteopenia. No visible central venous catheter. Airspace opacity left lung base worrisome for pneumonia. No pneumothorax IMPRESSION: Left basilar airspace opacity worrisome for pneumonia. There is no visible central venous catheter. Correlate with history. copyright 2010 [employer]- All Rights Reserved
[2020-06-04] MEDS: HEPARIN SOD (PORCINE) 5,000 UNIT/ML 1 ML VIAL SUBCUT SCH ×3 (05:54→21:33)
[2020-06-04] MEDS: INSULIN REG, HUMAN 100 UNIT/ML 3 ML VIAL (PYX) SUBCUT SCH ×5 (06:11→18:03)
[2020-06-04 06:34] LABS: ALBUMIN 2.2 g/dL (3.5-5.0); ALKALINE PHOSPHATASE 85 U/L (38-126); ANION GAP 7 (5-19); ASPARTATE AMINO TRANSFERASE 54 U/L (14-36); BILIRUBIN,DIRECT 0.2 mg/dL (0.0-0.4); BILIRUBIN,TOTAL 0.9 mg/dL (0.2-1.3); BLOOD UREA NITROGEN 86 mg/dL (7-20); CALCIUM 7.8 mg/dL (8.4-10.2); CARBON DIOXIDE 20 mmol/L (22-30); CHLORIDE 120 mmol/L (98-107); POTASSIUM 3.7 mmol/L (3.6-5.0); TOTAL PROTEIN 4.6 g/dL (6.3-8.2)
[2020-06-04 06:42] LABS: GLUCOSE 480 mg/dL (75-110)
[2020-06-04 07:28] LABS: HEMATOCRIT 33.1 % (36.0-47.0); MEAN CORPUSCULAR HEMOGLOBIN 27.3 pg (27.0-33.4); MEAN CORPUSCULAR HGB CONC 32.3 g/dL (32.0-36.0); MEAN CORPUSCULAR VOLUME 85 fl (80-97); RED BLOOD COUNT 3.91 10^6/uL (3.72-5.28); RED CELL DISTRIBUTION WIDTH 15.4 % (11.5-14.0); WHITE BLOOD COUNT 11.2 10^3/uL (4.0-10.5)
[2020-06-04 08:10] LABS: HEMOGLOBIN 10.7 g/dL (12.0-15.5)
[2020-06-04 08:11] LABS: PLATELET COUNT 49 10^3/uL (150-450)
[2020-06-04 08:16] LABS: ABSOLUTE LYMPHOCYTES# (MANUAL) 1.7 10^3/uL (0.5-4.7); ABSOLUTE MONOCYTES # (MANUAL) 0.6 10^3/uL (0.1-1.4); BASOPHILS % (MANUAL) 0 % (0-2); EOSINOPHILS % (MANUAL) 0 % (0-6); LYMPHOCYTES % (MANUAL) 13 % (13-45); METAMYELOCYTES % (MANUAL) 1 % (0-1); MONOCYTES % (MANUAL) 5 % (3-13); SEGMENTED NEUTROPHILS % (MAN) 79 % (42-78); TOTAL CELLS COUNTED 100
[2020-06-04 08:18] LABS: PLATELET COMMENT DECREASED; RBC MORPHOLOGY COMMENT NORMO-CYTIC/CHROMIC
--- NOTE | 2020-06-04 10:00 | PDOC PROGRESS REPORT ---
Subjective Date:: 06/04/20 Subjective:: Patient had hypoglycemic episode last night so she was switched to D5 quarter saline. She is again unresponsive and obtunded this morning and is very difficult to arouse if at all. She is making some urine. I was told that a quarter saline cannot be given here in IMCU so we change it early this morning to D5 half-normal. Reason For Visit: HYPERNATREMIA Physical Exam Vital Signs: Temp Pulse Resp BP Pulse Ox 99.4 F 107 H 16 118/53 L 100 06/04/20 08:50 06/04/20 07:00 06/04/20 03:51 06/04/20 03:51 06/04/20 03:51 Intake & Output 06/03/20 06/04/20 06/05/20 06:59 06:59 06:59 Intake Total 50 150 Output Total 100 640 Balance -50 -490 Weight 52.3 kg 49.5 kg Exam: General appearance: PRESENT: Obtunded and difficult to arouse Head exam: PRESENT: atraumatic, normocephalic Eye exam: PRESENT: Eyes closed Neck exam: ABSENT: JVD Respiratory exam: PRESENT: Diminished breath sounds. ABSENT: crackles, rales, rhonchi, unlabored, wheezes Cardiovascular exam: PRESENT: Regular rate rhythm -+S1, +S2. ABSENT: diastolic murmur, systolic murmur GI/Abdominal exam: PRESENT: normal bowel sounds, soft. ABSENT: guarding, mass, tenderness Extremities exam: ABSENT: No edema Neurological exam: PRESENT: Obtunded. Skin exam: PRESENT: dry, warm, Results Laboratory Results: 06/04/20 07:00 06/04/20 06:05 06/03/20 06/03/20 06/03/20 12:14 18:04 22:18 WBC RBC Hgb Hct MCV MCH MCHC RDW Plt Count Seg Neutrophils % Sodium 155.6 H 152.3 H Potassium 3.9 3.3 L Chloride 120 H 121 H Carbon Dioxide 26 21 L Anion Gap 10 10 BUN 90 H 92 H Creatinine 2.00 H 2.54 H Est GFR ( Amer) 28 L 22 L Glucose 155 H 83 405 H* Calcium 9.0 8.4 Total Bilirubin AST Alkaline Phosphatase Total Protein Albumin 06/04/20 06/04/20 06/04/20 06:05 06:05 07:00 WBC Cancelled 11.2 H RBC Cancelled 3.91 Hgb Cancelled 10.7 L D Hct Cancelled 33.1 L MCV Cancelled 85 MCH Cancelled 27.3 MCHC Cancelled 32.3 RDW Cancelled 15.4 H Plt Count Cancelled 49 L Seg Neutrophils % Cancelled Not Reportable Sodium 147.4 H Potassium 3.7 Chloride 120 H Carbon Dioxide 20 L Anion Gap 7 BUN 86 H Creatinine 2.57 H Est GFR ( Amer) 21 L Glucose 480 H* Calcium 7.8 L Total Bilirubin 0.9 AST 54 H Alkaline Phosphatase 85 Total Protein 4.6 L Albumin 2.2 L 06/02/20 16:48 Catheterized Urine Urine Culture - Final NO GROWTH 2 DAYS 06/02/20 06/02/20 06/02/20 13:25 13:25 18:00 Creatine Kinase 51 CK-MB (CK-2) 2.53 Troponin I 0.200 Cancelled 06/02/20 06/02/20 06/03/20 23:25 23:59 06:10 Creatine Kinase CK-MB (CK-2) Troponin I Cancelled Cancelled 0.567 06/03/20 18:04 Creatine Kinase CK-MB (CK-2) Troponin I 0.308 Impressions: Head CT 06/02/20 13:19 IMPRESSION: MICROVASCULAR ISCHEMIA AND GENERALIZED ATROPHY. 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 NO ACUTE IMAGING FINDINGS IN THE BRAIN EVIDENCE OF ACUTE STROKE: NO. Abdomen/Pelvis CT 06/02/20 15:43 IMPRESSION: 1. Mild left lung base consolidation with fluid and cystic changes, considerations for this finding includes infectious pneumonia. 2. Additional findings as above. Chest X-Ray 06/04/20 00:00 IMPRESSION: Left basilar airspace opacity worrisome for pneumonia. There is no visible central venous catheter. Correlate with history. copyright 2010 [employer]- All Rights Reserved Assessment & Plan - Diagnosis (1) Hypernatremia Is this a current diagnosis for this admission?: Yes Plan: Secondary to severe dehydration due to poor oral intake. Improving. IV fluids changed to D5 half-normal at 80 mL an hour. (2) DIEGO (acute kidney injury) Is this a current diagnosis for this admission?: Yes Plan: Most likely secondary to acute prerenal azotemia with severe dehydration. No associated significant proteinuria with some microhematuria . CT scan of the abdomen did not show any evidence of hydronephrosis no hydroureter on both kidneys. There does not seem to be any other precipitating factors at this time. Kidney function is unchanged and seems to be plateauing. Continue careful IV fluids. Patient is not a candidate for any kind of renal replacement therapy at any time. Avoid nephrotoxic medications. Monitor kidney function. (3) Acute metabolic encephalopathy Is this a current diagnosis for this admission?: Yes Plan: Most likely secondary to hypernatremia, DIEGO and now developing pneumonia. Unknown baseline mental status. (4) Left lower lobe pneumonia Is this a current diagnosis for this admission?: Yes Plan: Currently on IV Zosyn. (5) Hyperglycemia Is this a current diagnosis for this admission?: Yes Plan: Management per hospitalist. Patient had hypoglycemic episode likely because of poor oral intake and so she is now placed on D5 solution which is making her blood glucose elevated at this point. (6) Hypertension Qualifiers: Hypertension type: essential hypertension Qualified Code(s): I10 - Essential (primary) hypertension Is this a current diagnosis for this admission?: Yes Plan: Controlled. (7) Transaminitis Is this a current diagnosis for this admission?: Yes Plan: Levels are improving. (8) UTI (urinary tract infection) Qualifiers: Urinary tract infection type: site unspecified Hematuria presence: without hematuria Qualified Code(s): N39.0 - Urinary tract infection, site not specified Is this a current diagnosis for this admission?: Yes Plan: Urine culture negative. 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 - Time Time with patient: 15-25 minutes
[2020-06-04] MEDS: ASPIRIN 300 MG SUPP, RECTAL PR SCH (10:40)
[2020-06-04] MEDS: INSULIN GLARGINE,HUM.REC.ANLOG 1,000 UNIT/10 ML VIAL SUBCUT SCH ×2 (10:40→21:34)
[2020-06-04] MEDS: DEXTROSE 5%-1/2 NORMAL SALINE 1,000 ML IV PRN ×2 (10:40→22:28)
--- NOTE | 2020-06-04 16:24 | PDOC PROGRESS REPORT ---
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 Patient is unable to provide history so most of the history was obtained from her niece and from ED chart review. According to her niece Deidra nurses at [facility] told her that her aunt has not been eating or drinking a lot the past week. Deidra also mentioned that she was not as verbal as she had been a few weeks ago. Per ED notes her nurse yesterday noted that she has not been drinking. This morning around 8:30 PM the patient was apparently alert and was able to say good morning however at around 10 AM they noted that she was having difficulty swallowing and was not as responsive. Patient was then sent to the ED for further evaluation and management. In the ED vital signs 111/88, heart rate 1 9, respiratory rate 18, temperature 99.9, O2 sat 98% on room air. She is unable to provide any history. Metabolic panel showed that she has a sodium of 164.6, creatinine of 1.58, glucose of 476, lactate of 3.1. CBC showed WBC count of 18, hemoglobin 16, platelet count 100. ED physician consulted Dr. Fields for the hyponatremia and Dr. Fields recommended 1 L bolus of one fourth saline and to start one fourth saline at 150 mL/h. Patient was also given IV antibiotics for suspected UTI. CT of the head did not show any acute stroke. D2 06/03/20 hospital stay Patient was seen and examined at bedside. She is still very lethargic and obtunded. A central line was placed because it has been very difficult to get blood from her. Sodium decreased from 164 to 153, still curr ently on 1/4 saline. I have spoken to her niece and primary caregiver Deidra. I informed her the she is still very lethargic and this is likely still due to her hypernatremia as well as sepsis from UTI. Unfortunately with her recent stroke and her age, I am worried that her mental status might not recover and her morbidity adn mortality is very high. I discussed changing her code status to DNR/DNI and consider transitioning her to hospice if the current medical management is not working. Deidra stated that she has discussed the matter with the patients other siblings and they agreed that she would want to pass peacefully and " not suffer". Plan to continue medical management with abx and IV fluids and will re assess her the next few days. D3 Hospital stay 06/04/20 Patient was seen and examined at bedside. Still very obtunded. Na has improved to 147 hence IV fluids was changed to D5 half normal. WBC has improved to 11.2 Reason For Visit: HYPERNATREMIA Physical Exam Vital Signs: Temp Pulse Resp BP Pulse Ox 98.7 F 104 H 19 110/64 100 06/04/20 11:36 06/04/20 14:00 06/04/20 11:36 06/04/20 11:36 06/04/20 11:28 Intake & Output 06/03/20 06/04/20 06/05/20 06:59 06:59 06:59 Intake Total 50 150 1050 Output Total 100 640 Balance -50 -490 1050 Weight 52.3 kg 49.5 kg 49.5 kg General appearance: PRESENT: no acute distress, thin Head exam: PRESENT: atraumatic, normocephalic Eye exam: PRESENT: EOMI, PERRLA Mouth exam: PRESENT: moist Neck exam: PRESENT: full ROM Respiratory exam: PRESENT: clear to auscultation francine, symmetrical, unlabored Cardiovascular exam: PRESENT: RRR, +S2 Pulses: PRESENT: +2 pedal pulses bilateral GI/Abdominal exam: PRESENT: normal bowel sounds, soft. ABSENT: rebound, tenderness Musculoskeletal exam: PRESENT: other - Residual right-sided weakness Neurological exam: PRESENT: altered, other - Very obtunded Skin exam: PRESENT: normal color Results Laboratory Results: 06/04/20 07:00 06/04/20 06:05 06/03/20 06/03/20 06/04/20 18:04 22:18 06:05 WBC Cancelled RBC Cancelled Hgb Cancelled Hct Cancelled MCV Cancelled MCH Cancelled MCHC Cancelled RDW Cancelled Plt Count Cancelled Seg Neutrophils % Cancelled Sodium 152.3 H Potassium 3.3 L Chloride 121 H Carbon Dioxide 21 L Anion Gap 10 BUN 92 H Creatinine 2.54 H Est GFR ( Amer) 22 L Glucose 83 405 H* Calcium 8.4 Total Bilirubin AST Alkaline Phosphatase Total Protein Albumin 06/04/20 06/04/20 06:05 07:00 WBC 11.2 H RBC 3.91 Hgb 10.7 L D Hct 33.1 L MCV 85 MCH 27.3 MCHC 32.3 RDW 15.4 H Plt Count 49 L Seg Neutrophils % Not Reportable Sodium 147.4 H Potassium 3.7 Chloride 120 H Carbon Dioxide 20 L Anion Gap 7 BUN 86 H Creatinine 2.57 H Est GFR ( Amer) 21 L Glucose 480 H* Calcium 7.8 L Total Bilirubin 0.9 AST 54 H Alkaline Phosphatase 85 Total Protein 4.6 L Albumin 2.2 L 06/02/20 16:48 Catheterized Urine Urine Culture - Final NO GROWTH 2 DAYS 06/02/20 06/02/20 06/02/20 13:25 13:25 18:00 Creatine Kinase 51 CK-MB (CK-2) 2.53 Troponin I 0.200 Cancelled 06/02/20 06/02/20 06/03/20 23:25 23:59 06:10 Creatine Kinase CK-MB (CK-2) Troponin I Cancelled Cancelled 0.567 06/03/20 18:04 Creatine Kinase CK-MB (CK-2) Troponin I 0.308 Impressions: Head CT 06/02/20 13:19 IMPRESSION: MICROVASCULAR ISCHEMIA AND GENERALIZED ATROPHY. 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 NO ACUTE IMAGING FINDINGS IN THE BRAIN EVIDENCE OF ACUTE STROKE: NO. Abdomen/Pelvis CT 06/02/20 15:43 IMPRESSION: 1. Mild left lung base consolidation with fluid and cystic changes, considerations for this finding includes infectious pneumonia. 2. Additional findings as above. Chest X-Ray 06/04/20 00:00 IMPRESSION: Left basilar airspace opacity worrisome for pneumonia. There is no visible central venous catheter. Correlate with history. copyright 2010 [employer]- All Rights Reserved Assessment and Plan - Diagnosis (1) Acute metabolic encephalopathy Is this a current diagnosis for this admission?: Yes Plan: -not improving -Patient has history of left [employer] stroke April 2020 was sent from [facility] due to altered mental status -CT head negative - receiving abx for UTI and pneumonia - Na 164>153>147 so this is likely the source of her AMS - IV fluids switched to D5 half normal - daily BMP - nephro following (2) Hypernatremia Is this a current diagnosis for this admission?: Yes Plan: -Na 164>153>155>147 - Patient has a history of recent stroke April 2020. According to the niece her appetite has been poor the past week. -Likely she looks very dehydrated with dry mucosa and poor skin turgor. This is likely the cause of her hypernatremia - Free water deficit 4.5L - s/p 1L of 1/4 saline per nephro - currently receiving 80 ml of D5 half saline - nephro following - BMP daily (3) Hypertension Qualifiers: Hypertension type: essential hypertension Qualified Code(s): I10 - Essential (primary) hypertension Is this a current diagnosis for this admission?: Yes Plan: - will resume amlodipine when she is more awake (4) Hyperglycemia Is this a current diagnosis for this admission?: Yes Plan: - BG 476>155 - s/p 8u IV insulin - accucheck q6 and sliding scale insulin q6 - started her on lantus 10 u BID as well (5) DIEGO (acute kidney injury) Is this a current diagnosis for this admission?: Yes Plan: - Crea 1.58>2.0>2.57 baseline normal 0.8 - most likely pre renal given her presentation - currently on 1/2 saline for hypernatremia - per nephro she is a poor candidate for dialysis - will monitor daily (6) UTI (urinary tract infection) Qualifiers: Urinary tract infection type: site unspecified Hematuria presence: without hematuria Qualified Code(s): N39.0 - Urinary tract infection, site not specified Is this a current diagnosis for this admission?: Yes Plan: - per UA moderate blood, large leukocyte esterase, WBC more than 182 -Started on Zosyn since she was in the hospital 4 weeks ago -cultures negative -continue IV fluids (7) CVA (cerebral vascular accident) Qualifiers: CVA mechanism: occlusion Precerebral and cerebral artery: posterior cerebral artery Laterality of affected vessel: left Qualified Code(s): I63.532 - 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 Is this a current diagnosis for this admission?: Yes Plan: -Left [employer] stroke April 2020, residual right-sided weakness -Repeat CT head negative -Aspirin suppository for now since she is lethargic (8) Elevated troponin Is this a current diagnosis for this admission?: Yes Plan: -Troponin 0.2>0.56 -EKG sinus tachycardia no ST elevation -Likely demand ischemia or secondary to her DIEGO from dehydration -We will trend troponin (9) Transaminitis Is this a current diagnosis for this admission?: Yes Plan: -AST 204, ALT 365, ALP 128 -This is likely from dehydration -We will monitor for now and repeat CMP tomorrow (10) Right sided weakness Is this a current diagnosis for this admission?: Yes Plan: -Recent left [employer] stroke with residual right-sided weakness - Plan Summary Summary: Patient is 89-year-old female who was sent from [facility] due to hypernatremia causing severe lethargy, UTI. She is also suffered a recent stroke about 4 weeks ago. Currently being treated for hyponatremia with IV fluids and antibiotics for UTI. She is still very obtunded and lethargic. I have spoken to Deidra her niece and primary caregiver and discussed her high morbidity and mortality given recent stroke and hyponatremia. She agreed to change the CODE STATUS to DNR/DNI and to continue with current medical management with the understanding that if she does not improve or cannot get better in the next days that she will be transition to comfort care and eventually hospice. - Time Time Spent with patient: 25-34 minutes Medications reviewed and adjusted accordingly: Yes Anticipated Discharge Disposition: Hospice Center Anticipated Discharge Timeframe: TBD
[2020-06-05] MEDS: INSULIN REG, HUMAN 100 UNIT/ML 3 ML VIAL (PYX) SUBCUT SCH ×5 (00:37→23:52)
[2020-06-05] MEDS: HEPARIN SOD (PORCINE) 5,000 UNIT/ML 1 ML VIAL SUBCUT SCH ×3 (05:19→23:45)
[2020-06-05] MEDS: PIPERACILLIN SODIUM/TAZOBACTAM 2.25 GM in NORMAL SALINE 50 ML IV SCH ×2 (05:22→12:04)
[2020-06-05] MEDS: INSULIN GLARGINE,HUM.REC.ANLOG 1,000 UNIT/10 ML VIAL SUBCUT SCH ×2 (09:36→23:52)
[2020-06-05] MEDS: ASPIRIN 300 MG SUPP, RECTAL PR SCH (09:37)
[2020-06-05 12:02] LABS: ANION GAP 9 (5-19); BLOOD UREA NITROGEN 75 mg/dL (7-20); CALCIUM 8.4 mg/dL (8.4-10.2); CARBON DIOXIDE 21 mmol/L (22-30); CHLORIDE 120 mmol/L (98-107); GLUCOSE 200 mg/dL (75-110); POTASSIUM 3.3 mmol/L (3.6-5.0)
--- NOTE | 2020-06-05 13:32 | PDOC PROGRESS REPORT ---
Subjective Date:: 06/05/20 Subjective:: When I entered the room this morning the patient was placed on nonrebreather mas k because he could not get an accurate pulse oximetry reading which was initially reading a 63 to 73%. Subsequently they were able to get the accurate reading the patient was actually changed to oxygen at 4 L per nasal cannula saturating at 98%. Patient is again still very lethargic although according to the nurse earlier this morning she said Audrey Dunn. She moans a little bit when I was in the room. She is making urine recorded at 555 mL but apparently according to the nurse that may not be accurate unfortunately. She has no oral intake at all due to the mental status. Reason For Visit: HYPERNATREMIA Physical Exam Vital Signs: Temp Pulse Resp BP Pulse Ox 98.1 F 88 18 122/79 96 06/05/20 04:44 06/05/20 07:00 06/05/20 04:44 06/05/20 04:44 06/04/20 23:38 Intake & Output 06/04/20 06/05/20 06/06/20 06:59 06:59 06:59 Intake Total 150 2144 Output Total 640 555 Balance -490 1589 Weight 49.5 kg 49.4 kg Exam: General appearance: PRESENT: No obvious respiratory distress and she seems to be actually comfortable, cachectic and very lethargic although she moans and opens her eyes Head exam: PRESENT: atraumatic, normocephalic Eye exam: PRESENT: conjunctiva slightly pale, PERRLA. ABSENT: scleral icterus Neck exam: ABSENT: JVD Respiratory exam: PRESENT: Diminished breath sounds. ABSENT: crackles, rales, rhonchi, unlabored, wheezes Cardiovascular exam: PRESENT: Regular rate rhythm -+S1, +S2. ABSENT: diastolic murmur, systolic murmur GI/Abdominal exam: PRESENT: normal bowel sounds, soft. ABSENT: guarding, mass, tenderness Extremities exam: ABSENT: No edema Neurological exam: PRESENT: Lethargic. Skin exam: PRESENT: dry, warm, Results Laboratory Results: 06/04/20 07:00 06/04/20 06:05 06/02/20 16:48 Catheterized Urine Urine Culture - Final NO GROWTH 2 DAYS 06/02/20 06/02/20 06/02/20 13:25 13:25 18:00 Creatine Kinase 51 CK-MB (CK-2) 2.53 Troponin I 0.200 Cancelled 06/02/20 06/02/20 06/03/20 23:25 23:59 06:10 Creatine Kinase CK-MB (CK-2) Troponin I Cancelled Cancelled 0.567 06/03/20 18:04 Creatine Kinase CK-MB (CK-2) Troponin I 0.308 Impressions: Head CT 06/02/20 13:19 IMPRESSION: MICROVASCULAR ISCHEMIA AND GENERALIZED ATROPHY. 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 NO ACUTE IMAGING FINDINGS IN THE BRAIN EVIDENCE OF ACUTE STROKE: NO. Abdomen/Pelvis CT 06/02/20 15:43 IMPRESSION: 1. Mild left lung base consolidation with fluid and cystic changes, considerations for this finding includes infectious pneumonia. 2. Additional findings as above. Chest X-Ray 06/04/20 00:00 IMPRESSION: Left basilar airspace opacity worrisome for pneumonia. There is no visible central venous catheter. Correlate with history. copyright 2010 [employer]- All Rights Reserved Assessment & Plan - Diagnosis (1) Hypernatremia Is this a current diagnosis for this admission?: Yes Plan: Secondary to severe dehydration due to poor oral intake. Sodium level has gone up from 147 yesterday to 150 today. I will change her IV fluids to D5 half-normal with 20 mEq of potassium to run at 125 mL an hour. (2) DIEGO (acute kidney injury) Is this a current diagnosis for this admission?: Yes Plan: Most likely secondary to acute prerenal azotemia with severe dehydration. No associated significant proteinuria with some microhematuria . CT scan of the abdomen did not show any evidence of hydronephrosis no hydroureter on both kidneys. Patient's BUN has been slowly decreasing with IV fluid hydration but her creatinine has been continuously increasing. Consider possibility of developing acute interstitial nephritis secondary to IV Zosyn. I talked to Dr. Dawson to change IV Zosyn to a different antibiotics, like cephalosporin to cover for pneumonia. Repeat urinalysis. Continue IV fluids at this time. Patient is not a candidate for any kind of renal replacement therapy at any time. Avoid nephrotoxic medications. Monitor kidney function. (3) Acute metabolic encephalopathy Is this a current diagnosis for this admission?: Yes Plan: Most likely secondary to hypernatremia, DIEGO and now developing pneumonia. Unk nown baseline mental status. (4) Left lower lobe pneumonia Is this a current diagnosis for this admission?: Yes Plan: Has been on IV Zosyn since admission. Due to possibility of AIN due to IV Zosyn, I asked Dr. Dawson to change antibiotics today. (5) Hyperglycemia Is this a current diagnosis for this admission?: Yes Plan: Management per hospitalist. Patient had hypoglycemic episode likely because of poor oral intake and so she is now placed on D5 solution which is making her blood glucose elevated at this point. (6) Hypertension Qualifiers: Hypertension type: essential hypertension Qualified Code(s): I10 - Essential (primary) hypertension Is this a current diagnosis for this admission?: Yes Plan: Controlled. (7) Transaminitis Is this a current diagnosis for this admission?: Yes Plan: Levels are improving. (8) UTI (urinary tract infection) Qualifiers: Urinary tract infection type: site unspecified Hematuria presence: without hematuria Qualified Code(s): N39.0 - Urinary tract infection, site not specified Is this a current diagnosis for this admission?: Yes Plan: Urine culture negative. 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 - Time Time with patient: 15-25 minutes
[2020-06-05 13:50] LABS: HEMATOCRIT 34.8 % (36.0-47.0); HEMOGLOBIN 11.6 g/dL (12.0-15.5); MEAN CORPUSCULAR HEMOGLOBIN 27.5 pg (27.0-33.4); MEAN CORPUSCULAR HGB CONC 33.2 g/dL (32.0-36.0); MEAN CORPUSCULAR VOLUME 83 fl (80-97); RED BLOOD COUNT 4.21 10^6/uL (3.72-5.28); RED CELL DISTRIBUTION WIDTH 14.9 % (11.5-14.0); WHITE BLOOD COUNT 8.8 10^3/uL (4.0-10.5)
[2020-06-05 13:53] LABS: ABSOLUTE LYMPHOCYTES# (MANUAL) 1.6 10^3/uL (0.5-4.7); ABSOLUTE MONOCYTES # (MANUAL) 0.3 10^3/uL (0.1-1.4); BASOPHILS % (MANUAL) 1 % (0-2); EOSINOPHILS % (MANUAL) 3 % (0-6); LYMPHOCYTES % (MANUAL) 16 % (13-45); MONOCYTES % (MANUAL) 3 % (3-13); SEGMENTED NEUTROPHILS % (MAN) 75 % (42-78); TOTAL CELLS COUNTED 100
[2020-06-05 13:54] LABS: TOXIC GRANULATION 1+; TOXIC VACUOLATION PRESENT
[2020-06-05 13:57] LABS: PLATELET COMMENT DECREASED; RBC MORPHOLOGY COMMENT NORMO-CYTIC/CHROMIC
[2020-06-05 13:59] LABS: PLATELET COUNT 60 10^3/uL (150-450)
[2020-06-05] MEDS: POTASSI CL 20 MEQ/D5-1/2NS 1L 1,000 ML IV PRN (14:32)
--- NOTE | 2020-06-05 16:55 | PDOC PROGRESS REPORT ---
Subjective Date:: 06/05/20 Subjective:: ANTONINO BARBOZA is a 89 year old female, history of hypertension, recent stroke l eft RN ADVANCED affecting right side of her body, who was sent from [facility] due to altered mental status. Patient is unable to provide history so most of the history was obtained from her niece and from ED chart review. According to her niece Deidra nurses at [facility] told her that her aunt has not been eating or drinking a lot the past week. Deidra also mentioned that she was not as verbal as she had been a few weeks ago. Per ED notes her nurse yesterday noted that she has not been drinking. This morning around 8:30 PM the patient was apparently alert and was able to say good morning however at around 10 AM they noted that she was having difficulty swallowing and was not as responsive. Patient was then sent to the ED for further evaluation and management. In the ED vital signs 111/88, heart rate 1 9, respiratory rate 18, temperature 99.9, O2 sat 98% on room air. She is unable to provide any history. Metabolic panel showed that she has a sodium of 164.6, creatinine of 1.58, glucose of 476, lactate of 3.1. CBC showed WBC count of 18, hemoglobin 16, platelet count 100. ED physician consulted Dr. Fields for the hyponatremia and Dr. Fields recommended 1 L bolus of one fourth saline and to start one fourth saline at 150 mL/h. Patient was also given IV antibiotics for suspected UTI. CT of the head did not show any acute stroke. D2 06/03/20 hospital stay Patient was seen and examined at bedside. She is still very lethargic and obtunded. A central line was placed because it has been very difficult to get blood from her. Sodium decreased from 164 to 153, still curr ently on 1/4 saline. I have spoken to her niece and primary caregiver Deidra. I informed her the she is still very lethargic and this is likely still due to her hypernatremia as well as sepsis from UTI. Unfortunately with her recent stroke and her age, I am worried that her mental status might not recover and her morbidity adn mortality is very high. I discussed changing her code status to DNR/DNI and consider transitioning her to hospice if the current medical management is not working. Deidra stated that she has discussed the matter with the patients other siblings and they agreed that she would want to pass peacefully and " not suffer". Plan to continue medical management with abx and IV fluids and will re assess her the next few days. D3 Hospital stay 06/04/20 Patient was seen and examined at bedside. Still very obtunded. Na has improved to 147 hence IV fluids was changed to D5 half normal. WBC has improved to 11.2 D4 hospital stay 06/05/20 Patient was seen and examined at bedside. She was able to answer a few questions appropriately so she is not as obtunded as yesterday but still not back to her baseline. Na 150 toDAY, She is currently on d5 half normal with potassium chloride incorporated in the IV fluid. Crea still uptrending however she is non oliguric. Reason For Visit: HYPERNATREMIA Physical Exam Vital Signs: Temp Pulse Resp BP Pulse Ox 98.2 F 82 20 124/87 H 95 06/05/20 11:52 06/05/20 14:00 06/05/20 11:52 06/05/20 11:52 06/05/20 11:52 Intake & Output 06/04/20 06/05/20 06/06/20 06:59 06:59 06:59 Intake Total 150 2144 1050 Output Total 640 555 Balance -490 1589 1050 Weight 49.5 kg 49.4 kg General appearance: PRESENT: no acute distress, cooperative, thin Head exam: PRESENT: atraumatic, normocephalic Eye exam: PRESENT: EOMI, PERRLA Mouth exam: PRESENT: moist Neck exam: PRESENT: full ROM Respiratory exam: PRESENT: clear to auscultation francine, symmetrical Cardiovascular exam: PRESENT: RRR, +S1, +S2 Pulses: PRESENT: +2 pedal pulses bilateral GI/Abdominal exam: PRESENT: normal bowel sounds, soft. ABSENT: rebound, tenderness Extremities exam: ABSENT: joint swelling, pedal edema Musculoskeletal exam: PRESENT: other - residual right-sided weakness Neurological exam: PRESENT: altered Psychiatric exam: PRESENT: normal mood Skin exam: PRESENT: normal color Results Laboratory Results: 06/05/20 13:05 06/05/20 11:30 06/05/20 06/05/20 06/05/20 11:30 11:30 13:05 WBC Cancelled 8.8 RBC Cancelled 4.21 Hgb Cancelled 11.6 L Hct Cancelled 34.8 L MCV Cancelled 83 MCH Cancelled 27.5 MCHC Cancelled 33.2 RDW Cancelled 14.9 H Plt Count Cancelled 60 L Seg Neutrophils % Cancelled Not Reportable Sodium 150.1 H Potassium 3.3 L Chloride 120 H Carbon Dioxide 21 L Anion Gap 9 BUN 75 H Creatinine 3.05 H Est GFR ( Amer) 17 L Glucose 200 H Calcium 8.4 06/02/20 06/02/20 06/02/20 13:25 13:25 18:00 Creatine Kinase 51 CK-MB (CK-2) 2.53 Troponin I 0.200 Cancelled 06/02/20 06/02/20 06/03/20 23:25 23:59 06:10 Creatine Kinase CK-MB (CK-2) Troponin I Cancelled Cancelled 0.567 06/03/20 18:04 Creatine Kinase CK-MB (CK-2) Troponin I 0.308 Impressions: Head CT 06/02/20 13:19 IMPRESSION: MICROVASCULAR ISCHEMIA AND GENERALIZED ATROPHY. 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 NO ACUTE IMAGING FINDINGS IN THE BRAIN EVIDENCE OF ACUTE STROKE: NO. Abdomen/Pelvis CT 06/02/20 15:43 IMPRESSION: 1. Mild left lung base consolidation with fluid and cystic changes, considerations for this finding includes infectious pneumonia. 2. Additional findings as above. Chest X-Ray 06/04/20 00:00 IMPRESSION: Left basilar airspace opacity worrisome for pneumonia. There is no visible central venous catheter. Correlate with history. 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 According to the niece her appetite has been poor the past week. -Likely she looks very dehydrated with dry mucosa and poor skin turgor. This is likely the cause of her hypernatremia - Free water deficit 4.5L - s/p 1L of 1/4 saline per nephro - currently receiving 80 ml of D5 half saline - nephro following - BMP daily (3) Hypertension Qualifiers: Hypertension type: essential hypertension Qualified Code(s): I10 - Essential (primary) hypertension Is this a current diagnosis for this admission?: Yes Plan: - will resume amlodipine when she is more awake (4) Hyperglycemia Is this a current diagnosis for this admission?: Yes Plan: - BG 476>155 - s/p 8u IV insulin - accucheck q6 and sliding scale insulin q6 - started her on lantus 10 u BID as well (5) DIEGO (acute kidney injury) Is this a current diagnosis for this admission?: Yes Plan: - Crea 1.58>2.0>2.57>3.0 baseline normal 0.8 - most likely pre renal given her presentation - currently on 1/2 saline for hypernatremia - per nephro she is a poor candidate for dialysis - will monitor daily (6) UTI (urinary tract infection) Qualifiers: Urinary tract infection type: site unspecified Hematuria presence: without hematuria Qualified Code(s): N39.0 - Urinary tract infection, site not specified Is this a current diagnosis for this admission?: Yes Plan: - per UA moderate blood, large leukocyte esterase, WBC more than 182 -abx switched to ceftri due to concern for AIN -cultures negative -continue IV fluids (7) CVA (cerebral vascular accident) Qualifiers: CVA mechanism: occlusion Precerebral and cerebral artery: posterior cerebral artery Laterality of affected vessel: left Qualified Code(s): I63.532 - 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 Is this a current diagnosis for this admission?: Yes Plan: -Left 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, residual right-sided weakness -Repeat CT head negative -Aspirin suppository for now since she is lethargic (8) Elevated troponin Is this a current diagnosis for this admission?: Yes Plan: -Troponin 0.2>0.56>0.30 -EKG sinus tachycardia no ST elevation -Likely demand ischemia or secondary to her DIEGO from dehydration -We will trend troponin (9) Transaminitis Is this a current diagnosis for this admission?: Yes Plan: -AST 204>54, ALT 365>131, ALP 128 -This is likely from dehydration -We will monitor for now and repeat CMP tomorrow (10) Right sided weakness Is this a current diagnosis for this admission?: Yes Plan: -Recent left RN ADVANCED stroke with residual right-sided weakness - Plan Summary Summary: Patient is 89-year-old female who was sent from [facility] due to hypernatremia causing severe lethargy, UTI. She is also suffered a recent stroke about 4 weeks ago. Currently being treated for hyponatremia with IV fluids and antibiotics for UTI. She is still very obtunded and lethargic. I have spoken to Deidra her niece and primary caregiver and discussed her high morbidity and mortality given recent stroke and hyponatremia. She agreed to change the CODE STATUS to DNR/DNI and to continue with current medical management with the understanding that if she does not improve or cannot get better in the next days that she will be transitioned to comfort care and eventually hospice. - Time Time Spent with patient: 15-24 minutes Medications reviewed and adjusted accordingly: Yes Anticipated Discharge Disposition: Hospice Center Anticipated Discharge Timeframe: tbd
[2020-06-06] MEDS: POTASSI CL 20 MEQ/D5-1/2NS 1L 1,000 ML IV PRN ×2 (00:18→09:41)
[2020-06-06 00:48] LABS: APPEARANCE,URINE TURBID; BILIRUBIN,URINE NEGATIVE (NEGATIVE); COLOR,URINE YELLOW; GLUCOSE, URINE 50 mg/dL (NEGATIVE); KETONES,URINE NEGATIVE (NEGATIVE); PROTEIN,URINE 30 mg/dL (NEGATIVE); URINE SPECIFIC GRAVITY 1.012; UROBILINOGEN,URINE NEGATIVE mg/dL (<2.0)
[2020-06-06] MEDS: INSULIN REG, HUMAN 100 UNIT/ML 3 ML VIAL (PYX) SUBCUT SCH ×3 (06:31→18:20)
[2020-06-06] MEDS: HEPARIN SOD (PORCINE) 5,000 UNIT/ML 1 ML VIAL SUBCUT SCH ×3 (06:31→23:57)
[2020-06-06] MEDS: ASPIRIN 300 MG SUPP, RECTAL PR SCH (09:41)
[2020-06-06] MEDS: CEFTRIAXONE 2 GM/D5W RTU 2 GM/50 ML RTUPB IV SCH (09:41)
[2020-06-06] MEDS: INSULIN GLARGINE,HUM.REC.ANLOG 1,000 UNIT/10 ML VIAL SUBCUT SCH (09:41)
[2020-06-06 10:06] LABS: ANION GAP 13 (5-19); BLOOD UREA NITROGEN 60 mg/dL (7-20); CALCIUM 8.3 mg/dL (8.4-10.2); CARBON DIOXIDE 15 mmol/L (22-30); CHLORIDE 124 mmol/L (98-107); GLUCOSE 151 mg/dL (75-110); POTASSIUM 3.7 mmol/L (3.6-5.0)
--- NOTE | 2020-06-06 15:43 | PDOC PROGRESS REPORT ---
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 Patient is unable to provide history so most of the history was obtained from her niece and from ED chart review. According to her niece Deidra nurses at [facility] told her that her aunt has not been eating or drinking a lot the past week. Deidra also mentioned that she was not as verbal as she had been a few weeks ago. Per ED notes her nurse yesterday noted that she has not been drinking. This morning around 8:30 PM the patient was apparently alert and was able to say good morning however at around 10 AM they noted that she was having difficulty swallowing and was not as responsive. Patient was then sent to the ED for further evaluation and management. In the ED vital signs 111/88, heart rate 1 9, respiratory rate 18, temperature 99.9, O2 sat 98% on room air. She is unable to provide any history. Metabolic panel showed that she has a sodium of 164.6, creatinine of 1.58, glucose of 476, lactate of 3.1. CBC showed WBC count of 18, hemoglobin 16, platelet count 100. ED physician consulted Dr. Fields for the hyponatremia and Dr. Fields recommended 1 L bolus of one fourth saline and to start one fourth saline at 150 mL/h. Patient was also given IV antibiotics for suspected UTI. CT of the head did not show any acute stroke. D2 06/03/20 hospital stay Patient was seen and examined at bedside. She is still very lethargic and obtunded. A central line was placed because it has been very difficult to get blood from her. Sodium decreased from 164 to 153, still curr ently on 1/4 saline. I have spoken to her niece and primary caregiver Deidra. I informed her the she is still very lethargic and this is likely still due to her hypernatremia as well as sepsis from UTI. Unfortunately with her recent stroke and her age, I am worried that her mental status might not recover and her morbidity adn mortality is very high. I discussed changing her code status to DNR/DNI and consider transitioning her to hospice if the current medical management is not working. Deidra stated that she has discussed the matter with the patients other siblings and they agreed that she would want to pass peacefully and " not suffer". Plan to continue medical management with abx and IV fluids and will re assess her the next few days. D3 Hospital stay 06/04/20 Patient was seen and examined at bedside. Still very obtunded. Na has improved to 147 hence IV fluids was changed to D5 half normal. WBC has improved to 11.2 D4 hospital stay 06/05/20 Patient was seen and examined at bedside. She was able to answer a few questions appropriately so she is not as obtunded as yesterday but still not back to her baseline. Na 150 toDAY, She is currently on d5 half normal with potassium chloride incorporated in the IV fluid. Crea still uptrending however she is non oliguric. D5 hospital stay 06/06/20 Patient was seen and examined at bedside. More alert and awake today although still appears weak and cannot sustain a prolonged conversation. Na again trending up to 151.7, IV fluids switched to D5W 60 cc/hr. Kidney function improved to 2.55, non oliguric. Reason For Visit: HYPERNATREMIA Physical Exam Vital Signs: Temp Pulse Resp BP Pulse Ox 99.1 F 88 19 137/87 H 92 06/06/20 11:16 06/06/20 14:00 06/06/20 11:16 06/06/20 11:16 06/06/20 11:16 Intake & Output 06/05/20 06/06/20 06/07/20 06:59 06:59 06:59 Intake Total 2144 2050 1050 Output Total 555 720 Balance 1589 1330 1050 Weight 49.4 kg 49.8 kg General appearance: PRESENT: no acute distress, cooperative, thin Head exam: PRESENT: atraumatic, normocephalic Eye exam: PRESENT: EOMI, PERRLA Mouth exam: PRESENT: moist Neck exam: PRESENT: full ROM Respiratory exam: PRESENT: rhonchi, symmetrical, unlabored Cardiovascular exam: PRESENT: RRR, +S1, +S2 Pulses: PRESENT: +2 pedal pulses bilateral GI/Abdominal exam: PRESENT: normal bowel sounds, soft. ABSENT: rebound, tenderness Extremities exam: ABSENT: +1 edema Musculoskeletal exam: PRESENT: other - Right-sided weakness from prior stroke Neurological exam: PRESENT: alert, awake, oriented to person, oriented to place, oriented to time, oriented to situation Psychiatric exam: PRESENT: normal mood Skin exam: PRESENT: normal color Results Laboratory Results: 06/05/20 13:05 06/06/20 08:22 06/06/20 06/06/20 00:20 08:22 Sodium 151.7 H Potassium 3.7 Chloride 124 H Carbon Dioxide 15 L Anion Gap 13 BUN 60 H Creatinine 2.55 H Est GFR ( Amer) 21 L Glucose 151 H Calcium 8.3 L Urine Color YELLOW Urine Appearance TURBID Urine pH 5.0 Ur Specific Strang 1.012 Urine Protein 30 H Urine Glucose (UA) 50 H Urine Ketones NEGATIVE Urine Blood LARGE H Urine RBC (Auto) 114 06/02/20 06/02/20 06/02/20 13:25 13:25 18:00 Creatine Kinase 51 CK-MB (CK-2) 2.53 Troponin I 0.200 Cancelled 06/02/20 06/02/20 06/03/20 23:25 23:59 06:10 Creatine Kinase CK-MB (CK-2) Troponin I Cancelled Cancelled 0.567 06/03/20 18:04 Creatine Kinase CK-MB (CK-2) Troponin I 0.308 Impressions: Head CT 06/02/20 13:19 IMPRESSION: MICROVASCULAR ISCHEMIA AND GENERALIZED ATROPHY. 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 NO ACUTE IMAGING FINDINGS IN THE BRAIN EVIDENCE OF ACUTE STROKE: NO. Abdomen/Pelvis CT 06/02/20 15:43 IMPRESSION: 1. Mild left lung base consolidation with fluid and cystic changes, considerations for this finding includes infectious pneumonia. 2. Additional findings as above. Chest X-Ray 06/04/20 00:00 IMPRESSION: Left basilar airspace opacity worrisome for pneumonia. There is no visible central venous catheter. Correlate with history. copyright 2010 [employer]- All Rights Reserved Assessment and Plan - Diagnosis (1) Acute metabolic encephalopathy Is this a current diagnosis for this admission?: Yes Plan: -Mildly improved - Patient has history of left FLY MAKER stroke April 2020 was sent from [facility] due to altered mental status - CT head negative - receiving abx for UTI and pneumonia - Na 164>153>147>150>151.7 so this is likely the source of her AMS - IV fluids switched to D5 water - daily BMP - nephro following (2) Hypernatremia Is this a current diagnosis for this admission?: Yes Plan: -Na 164>153>155>147>150>151.7 - Patient has a history of recent stroke April 2020. According to the niece her appetite has been poor the past week. -Likely she looks very dehydrated with dry mucosa and poor skin turgor. This is likely the cause of her hypernatremia - Free water deficit 4.5L - s/p 1L of 1/4 saline per nephro - currently receiving 80 ml of D5 saline - nephro following - BMP daily (3) Hypertension Qualifiers: Hypertension type: essential hypertension Qualified Code(s): I10 - Essential (primary) hypertension Is this a current diagnosis for this admission?: Yes Plan: - will resume amlodipine when she is more awake (4) Hyperglycemia Is this a current diagnosis for this admission?: Yes Plan: - BG 476>155 - s/p 8u IV insulin - accucheck q6 and sliding scale insulin q6 - started her on lantus 10 u BID as well (5) DIEGO (acute kidney injury) Is this a current diagnosis for this admission?: Yes Plan: - Crea 1.58>2.0>2.57>3.0>3.55 baseline normal 0.8 - most likely pre renal given her presentation - IV fluids switched to D5 water - per nephro she is a poor candidate for dialysis - will monitor daily (6) UTI (urinary tract infection) Qualifiers: Urinary tract infection type: site unspecified Hematuria presence: without hematuria Qualified Code(s): N39.0 - Urinary tract infection, site not spec ified Is this a current diagnosis for this admission?: Yes Plan: - per UA moderate blood, large leukocyte esterase, WBC more than 182 -abx switched to ceftri due to concern for AIN -cultures negative -continue IV fluids (7) CVA (cerebral vascular accident) Qualifiers: CVA mechanism: occlusion Precerebral and cerebral artery: posterior cerebral artery Laterality of affected vessel: left Qualified Code(s): I63.532 - 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 Is this a current diagnosis for this admission?: Yes Plan: -Left FLY MAKER stroke April 2020, residual right-sided weakness -Repeat CT head negative -Aspirin suppository for now since she is lethargic (8) Elevated troponin Is this a current diagnosis for this admission?: Yes Plan: -Troponin 0.2>0.56>0.30 -EKG sinus tachycardia no ST elevation -Likely demand ischemia or secondary to her DIEGO from dehydration -We will trend troponin (9) Transaminitis Is this a current diagnosis for this admission?: Yes Plan: -AST 204>54, ALT 365>131, ALP 128 -This is likely from dehydration -We will monitor for now and repeat CMP tomorrow (10) Right sided weakness Is this a current diagnosis for this admission?: Yes Plan: -Recent left FLY MAKER stroke with residual right-sided weakness - Plan Summary Summary: Patient is 89-year-old female who was [facility] due to hypernatremia causing severe lethargy, UTI. She is also suffered a recent stroke about 4 weeks ago. Currently being treated for hyponatremia with IV fluids and antibiotics for UTI. She is still very obtunded and lethargic. I have spoken to Deidra her niece and primary caregiver and discussed her high morbidity and mortality given recent stroke and hyponatremia. She agreed to change the CODE STATUS to DNR/DNI and to continue with current medical management with the understanding that if she does not improve or cannot get better in the next days that she will be transitioned to comfort care and eventually hospice. - Time Time Spent with patient: 15-24 minutes Medications reviewed and adjusted accordingly: Yes Anticipated Discharge Disposition: Home with Hospice Anticipated Discharge Timeframe: TBD
[2020-06-06] MEDS: DEXTROSE 5%-WATER 1000 ML 1,000 ML IV PRN (18:21)
[2020-06-07] MEDS: INSULIN REG, HUMAN 100 UNIT/ML 3 ML VIAL (PYX) SUBCUT SCH ×4 (00:14→17:03)
[2020-06-07] MEDS: INSULIN GLARGINE,HUM.REC.ANLOG 1,000 UNIT/10 ML VIAL SUBCUT SCH ×2 (00:30→11:29)
[2020-06-07] MEDS: HEPARIN SOD (PORCINE) 5,000 UNIT/ML 1 ML VIAL SUBCUT SCH ×3 (05:29→21:18)
[2020-06-07] MEDS: DEXTROSE 50%-WATER 25 GM/50 ML DISP.SYRIN IV PRN (05:40)
[2020-06-07 07:58] LABS: ANION GAP 8 (5-19); BLOOD UREA NITROGEN 48 mg/dL (7-20); CALCIUM 8.3 mg/dL (8.4-10.2); CARBON DIOXIDE 15 mmol/L (22-30); CHLORIDE 125 mmol/L (98-107); GLUCOSE 119 mg/dL (75-110)
[2020-06-07 08:03] LABS: POTASSIUM 4.7 mmol/L (3.6-5.0)
[2020-06-07] MEDS: DEXTROSE 5%-WATER 1000 ML 1,000 ML IV PRN (11:29)
[2020-06-07] MEDS: CEFTRIAXONE 2 GM/D5W RTU 2 GM/50 ML RTUPB IV SCH (11:29)
[2020-06-07] MEDS: ASPIRIN 300 MG SUPP, RECTAL PR SCH (11:29)
--- NOTE | 2020-06-07 21:13 | PDOC PROGRESS REPORT ---
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 Patient is unable to provide history so most of the history was obtained from her niece and from ED chart review. According to her niece Deidra nurses at [facility] told her that her aunt has not been eating or drinking a lot the past week. Deidra also mentioned that she was not as verbal as she had been a few weeks ago. Per ED notes her nurse yesterday noted that she has not been drinking. This morning around 8:30 PM the patient was apparently alert and was able to say good morning however at around 10 AM they noted that she was having difficulty swallowing and was not as responsive. Patient was then sent to the ED for further evaluation and management. In the ED vital signs 111/88, heart rate 1 9, respiratory rate 18, temperature 99.9, O2 sat 98% on room air. She is unable to provide any history. Metabolic panel showed that she has a sodium of 164.6, creatinine of 1.58, glucose of 476, lactate of 3.1. CBC showed WBC count of 18, hemoglobin 16, platelet count 100. ED physician consulted Dr. Fields for the hyponatremia and Dr. Fields recommended 1 L bolus of one fourth saline and to start one fourth saline at 150 mL/h. Patient was also given IV antibiotics for suspected UTI. CT of the head did not show any acute stroke. D2 06/03/20 hospital stay Patient was seen and examined at bedside. She is still very lethargic and obtunded. A central line was placed because it has been very difficult to get blood from her. Sodium decreased from 164 to 153, still curr ently on 1/4 saline. I have spoken to her niece and primary caregiver Deidra. I informed her the she is still very lethargic and this is likely still due to her hypernatremia as well as sepsis from UTI. Unfortunately with her recent stroke and her age, I am worried that her mental status might not recover and her morbidity adn mortality is very high. I discussed changing her code status to DNR/DNI and consider transitioning her to hospice if the current medical management is not working. Deidra stated that she has discussed the matter with the patients other siblings and they agreed that she would want to pass peacefully and " not suffer". Plan to continue medical management with abx and IV fluids and will re assess her the next few days. D3 Hospital stay 06/04/20 Patient was seen and examined at bedside. Still very obtunded. Na has improved to 147 hence IV fluids was changed to D5 half normal. WBC has improved to 11.2 D4 hospital stay 06/05/20 Patient was seen and examined at bedside. She was able to answer a few questions appropriately so she is not as obtunded as yesterday but still not back to her baseline. Na 150 toDAY, She is currently on d5 half normal with potassium chloride incorporated in the IV fluid. Crea still uptrending however she is non oliguric. D5 hospital stay 06/06/20 Patient was seen and examined at bedside. More alert and awake today although still appears weak and cannot sustain a prolonged conversation. Na again trending up to 151.7, IV fluids switched to D5W 60 cc/hr. Kidney function improved to 2.55, non oliguric. D6 hospital stay 06/07/20 Patient was seen and examined at bedside. Improved mentation but still not fully conversational. Na improved to 148.3 on D5 water nd cera improved to 2.3 from 2.5. Per nurse she did not pass bedside swallow study, awaiting formal swallow eval. I am worried that this is the best she is going to be and she continued to be at a high risk for repeat episodes of hypernatremia due to her aphasia. Feeding tube is not a good option for her. Reason For Visit: HYPERNATREMIA Physical Exam Vital Signs: Temp Pulse Resp BP Pulse Ox 97.8 F 108 H 18 149/85 H 97 06/07/20 08:59 06/07/20 14:00 06/07/20 03:30 06/07/20 03:30 06/07/20 03:30 Intake & Output 06/06/20 06/07/20 06/08/20 06:59 06:59 06:59 Intake Total 2049 2049 1050 Output Total 720 250 Balance 1330 1800 1050 Weight 49.8 kg 54.9 kg General appearance: PRESENT: no acute distress, cooperative, thin Head exam: PRESENT: atraumatic, normocephalic Eye exam: PRESENT: EOMI, PERRLA Mouth exam: PRESENT: moist Neck exam: PRESENT: full ROM Respiratory exam: PRESENT: clear to auscultation francine, symmetrical, unlabored Cardiovascular exam: PRESENT: RRR, +S1, +S2 GI/Abdominal exam: PRESENT: normal bowel sounds, soft. ABSENT: rebound, tenderness Musculoskeletal exam: PRESENT: other - Residual right-sided weakness Neurological exam: PRESENT: awake, aphasic Psychiatric exam: PRESENT: normal mood Skin exam: PRESENT: normal color Results Laboratory Results: 06/05/20 13:05 06/07/20 06:53 06/07/20 06:53 Sodium 148.3 H Potassium 4.7 D Chloride 125 H Carbon Dioxide 15 L Anion Gap 8 BUN 48 H Creatinine 2.31 H Est GFR ( Amer) 24 L Glucose 119 H Calcium 8.3 L 06/02/20 13:25 Blood Blood Culture - Final NO GROWTH IN 5 DAYS 06/02/20 13:25 Blood Blood Culture - Final NO GROWTH IN 5 DAYS 06/02/20 06/02/20 06/02/20 13:25 13:25 18:00 Creatine Kinase 51 CK-MB (CK-2) 2.53 Troponin I 0.200 Cancelled 06/02/20 06/02/20 06/03/20 23:25 23:59 06:10 Creatine Kinase CK-MB (CK-2) Troponin I Cancelled Cancelled 0.567 06/03/20 18:04 Creatine Kinase CK-MB (CK-2) Troponin I 0.308 Impressions: Head CT 06/02/20 13:19 IMPRESSION: MICROVASCULAR ISCHEMIA AND GENERALIZED ATROPHY. 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 NO ACUTE IMAGING FINDINGS IN THE BRAIN EVIDENCE OF ACUTE STROKE: NO. Abdomen/Pelvis CT 06/02/20 15:43 IMPRESSION: 1. Mild left lung base consolidation with fluid and cystic changes, considerations for this finding includes infectious pneumonia. 2. Additional findings as above. Chest X-Ray 06/04/20 00:00 IMPRESSION: Left basilar airspace opacity worrisome for pneumonia. There is no visible central venous catheter. Correlate with history. 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 According to the niece her appetite has been poor the past week. -Likely she looks very dehydrated with dry mucosa and poor skin turgor. This is likely the cause of her hypernatremia - Free water deficit 4.5L - s/p 1L of 1/4 saline per nephro - switched to D5 water at 60 ml/hr - nephro following - BMP daily (3) Hypertension Qualifiers: Hypertension type: essential hypertension Qualified Code(s): I10 - Es sential (primary) hypertension Is this a current diagnosis for this admission?: Yes Plan: - will resume amlodipine when she is more awake (4) Hyperglycemia Is this a current diagnosis for this admission?: Yes Plan: - BG 476>155 - s/p 8u IV insulin - accucheck q6 and sliding scale insulin q6 - started her on lantus 10 u BID as well (5) DIEGO (acute kidney injury) Is this a current diagnosis for this admission?: Yes Plan: - Crea 1.58>2.0>2.57>3.0>3.55>2.31 baseline normal 0.8 - most likely pre renal given her presentation - IV fluids switched to D5 water - per nephro she is a poor candidate for dialysis - will monitor daily (6) UTI (urinary tract infection) Qualifiers: Urinary tract infection type: site unspecified Hematuria presence: without hematuria Qualified Code(s): N39.0 - Urinary tract infection, site not specified Is this a current diagnosis for this admission?: Yes Plan: - per UA moderate blood, large leukocyte esterase, WBC more than 182 -abx switched to ceftri due to concern for AIN -cultures negative -continue IV fluids (7) CVA (cerebral vascular accident) Qualifiers: CVA mechanism: occlusion Precerebral and cerebral artery: posterior cerebral artery Laterality of affected vessel: left Qualified Code(s): I63.532 - 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 Is this a current diagnosis for this admission?: Yes Plan: -Left SUPPORT MERCHANDISER stroke April 2020, residual right-sided weakness -Repeat CT head negative -Aspirin suppository for now since she is lethargic (8) Elevated troponin Is this a current diagnosis for this admission?: Yes Plan: -Troponin 0.2>0.56>0.30 -EKG sinus tachycardia no ST elevation -Likely demand ischemia or secondary to her DIEGO from dehydration -We will trend troponin (9) Transaminitis Is this a current diagnosis for this admission?: Yes Plan: -AST 204>54, ALT 365>131, ALP 128 -This is likely from dehydration -We will monitor for now and repeat CMP tomorrow (10) Right sided weakness Is this a current diagnosis for this admission?: Yes Plan: -Recent left SUPPORT MERCHANDISER stroke with residual right-sided weakness - Plan Summary Summary: Patient is 89-year-old female who was sent from [facility] due to hypernatremia causing severe lethargy, UTI. She is also suffered a recent stroke about 4 weeks ago. Currently being treated for hyponatremia with IV fluids and antibiotics for UTI. She is still very obtunded and lethargic. I have spoken to Deidra her niece and primary caregiver and discussed her high morbidity and mortality given recent stroke and hyponatremia. She agreed to change the CODE STATUS to DNR/DNI and to continue with current medical management with the understanding that if she does not improve or cannot get better in the next days that she will be transitioned to comfort care and eventually hospice. - Time Time Spent with patient: 25-34 minutes Medications reviewed and adjusted accordingly: Yes Anticipated Discharge Disposition: Hospice Center Anticipated Discharge Timeframe: tbd
[2020-06-08] MEDS: INSULIN REG, HUMAN 100 UNIT/ML 3 ML VIAL (PYX) SUBCUT SCH ×4 (00:06→19:18)
[2020-06-08] MEDS: INSULIN GLARGINE,HUM.REC.ANLOG 1,000 UNIT/10 ML VIAL SUBCUT SCH ×3 (00:06→23:29)
[2020-06-08 04:41] LABS: ANION GAP 8 (5-19); BLOOD UREA NITROGEN 40 mg/dL (7-20); CALCIUM 8.1 mg/dL (8.4-10.2); CARBON DIOXIDE 19 mmol/L (22-30); CHLORIDE 120 mmol/L (98-107); GLUCOSE 80 mg/dL (75-110)
[2020-06-08 04:43] LABS: POTASSIUM 3.1 mmol/L (3.6-5.0)
[2020-06-08] MEDS: HEPARIN SOD (PORCINE) 5,000 UNIT/ML 1 ML VIAL SUBCUT SCH ×2 (05:25→13:46)
[2020-06-08] MEDS: DEXTROSE 5%-WATER 1000 ML 1,000 ML IV PRN ×2 (05:56→23:29)
[2020-06-08] MEDS: DEXTROSE 50%-WATER 25 GM/50 ML DISP.SYRIN IV PRN (05:56)
[2020-06-08] MEDS: CEFTRIAXONE 2 GM/D5W RTU 2 GM/50 ML RTUPB IV SCH (11:09)
[2020-06-08] MEDS: POTASSI CL 20 MEQ/50 ML RIDER 20 MEQ/50 ML RTUPB IV SCH ×3 (11:10→15:52)
[2020-06-08] MEDS: ASPIRIN 300 MG SUPP, RECTAL PR SCH (11:11)
[2020-06-08] MEDS ORDERED: ONDANSETRON HCL INJ/PF 4 MG/2 ML SDV IV PRN (14:30)
--- NOTE | 2020-06-08 17:56 | PDOC PROGRESS REPORT ---
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 Patient is unable to provide history so most of the history was obtained from her niece and from ED chart review. According to her niece Deidra nurses at [facility] told her that her aunt has not been eating or drinking a lot the past week. Deidra also mentioned that she was not as verbal as she had been a few weeks ago. Per ED notes her nurse yesterday noted that she has not been drinking. This morning around 8:30 PM the patient was apparently alert and was able to say good morning however at around 10 AM they noted that she was having difficulty swallowing and was not as responsive. Patient was then sent to the ED for further evaluation and management. In the ED vital signs 111/88, heart rate 1 9, respiratory rate 18, temperature 99.9, O2 sat 98% on room air. She is unable to provide any history. Metabolic panel showed that she has a sodium of 164.6, creatinine of 1.58, glucose of 476, lactate of 3.1. CBC showed WBC count of 18, hemoglobin 16, platelet count 100. ED physician consulted Dr. Fields for the hyponatremia and Dr. Fields recommended 1 L bolus of one fourth saline and to start one fourth saline at 150 mL/h. Patient was also given IV antibiotics for suspected UTI. CT of the head did not show any acute stroke. D2 06/03/20 hospital stay Patient was seen and examined at bedside. She is still very lethargic and obtunded. A central line was placed because it has been very difficult to get blood from her. Sodium decreased from 164 to 153, still curr ently on 1/4 saline. I have spoken to her niece and primary caregiver Deidra. I informed her the she is still very lethargic and this is likely still due to her hypernatremia as well as sepsis from UTI. Unfortunately with her recent stroke and her age, I am worried that her mental status might not recover and her morbidity adn mortality is very high. I discussed changing her code status to DNR/DNI and consider transitioning her to hospice if the current medical management is not working. Deidra stated that she has discussed the matter with the patients other siblings and they agreed that she would want to pass peacefully and " not suffer". Plan to continue medical management with abx and IV fluids and will re assess her the next few days. D3 Hospital stay 06/04/20 Patient was seen and examined at bedside. Still very obtunded. Na has improved to 147 hence IV fluids was changed to D5 half normal. WBC has improved to 11.2 D4 hospital stay 06/05/20 Patient was seen and examined at bedside. She was able to answer a few questions appropriately so she is not as obtunded as yesterday but still not back to her baseline. Na 150 toDAY, She is currently on d5 half normal with potassium chloride incorporated in the IV fluid. Crea still uptrending however she is non oliguric. D5 hospital stay 06/06/20 Patient was seen and examined at bedside. More alert and awake today although still appears weak and cannot sustain a prolonged conversation. Na again trending up to 151.7, IV fluids switched to D5W 60 cc/hr. Kidney function improved to 2.55, non oliguric. D6 hospital stay 06/07/20 Patient was seen and examined at bedside. Improved mentation but still not fully conversational. Na improved to 148.3 on D5 water nd cera improved to 2.3 from 2.5. Per nurse she did not pass bedside swallow study, awaiting formal swallow eval. I am worried that this is the best she is going to be and she continued to be at a high risk for repeat episodes of hypernatremia due to her aphasia. Feeding tube is not a good option for her. d7 hospital stay 06/08/20 Patient was seen and examined at bedside.Mental status has not really improved much from yesterday. She answers the most simplest ques tion but is unable to engage more with conversations. Na improved to 146.9 on D5 water and her WBC count is normal. I spoke to Deidra [id number] with the patient's sister and brother on speaker phone. I believe that this is the best she will be as far as her mental status is concerned. Unfortunately because of her stroke she would always be at a risk for aspiration pneumonia and hyponatremia due to her inability to eat. Despite correcting her sodium and treating her infection her mental status has not really improved. I spoke to Deidra about the patient being hospice appropriate due to her significant stroke, hypernatremia and ongoing infection. She and the patient sister has agr eed to put her on hospice. Her CODE STATUS was already changed to DNR and discharge planning was made aware. Reason For Visit: HYPERNATREMIA Physical Exam Vital Signs: Temp Pulse Resp BP Pulse Ox 97.9 F 94 18 177/74 H 97 06/08/20 15:40 06/08/20 15:40 06/08/20 15:40 06/08/20 15:40 06/08/20 15:40 Intake & Output 06/07/20 06/08/20 06/09/20 06:59 06:59 06:59 Intake Total 0 2050 150 Output Total 250 620 400 Balance 1800 1430 -250 Weight 54.9 kg 55.1 kg 55.1 kg General appearance: PRESENT: no acute distress, cooperative Head exam: PRESENT: atraumatic, normocephalic Eye exam: PRESENT: EOMI, PERRLA Mouth exam: PRESENT: moist Neck exam: PRESENT: carotid bruit Respiratory exam: PRESENT: clear to auscultation francine, symmetrical, unlabored Cardiovascular exam: PRESENT: RRR, +S1 Pulses: PRESENT: +2 pedal pulses bilateral GI/Abdominal exam: PRESENT: normal bowel sounds, soft. ABSENT: tenderness Extremities exam: PRESENT: other - Right sided weakness Neurological exam: PRESENT: altered, aphasic Psychiatric exam: PRESENT: normal mood Skin exam: PRESENT: normal color Results Laboratory Results: 06/05/20 13:05 06/08/20 03:47 06/08/20 03:47 Sodium 146.9 H Potassium 3.1 L D Chloride 120 H Carbon Dioxide 19 L Anion Gap 8 BUN 40 H Creatinine 2.07 H Est GFR ( Amer) 27 L Glucose 80 Calcium 8.1 L 06/06/20 00:20 Catheterized Urine Urine Culture - Final NO GROWTH 2 DAYS 06/02/20 13:25 Blood Blood Culture - Final NO GROWTH IN 5 DAYS 06/02/20 13:25 Blood Blood Culture - Final NO GROWTH IN 5 DAYS 06/02/20 06/02/20 06/02/20 13:25 13:25 18:00 Creatine Kinase 51 CK-MB (CK-2) 2.53 Troponin I 0.200 Cancelled 06/02/20 06/02/20 06/03/20 23:25 23:59 06:10 Creatine Kinase CK-MB (CK-2) Troponin I Cancelled Cancelled 0.567 06/03/20 18:04 Creatine Kinase CK-MB (CK-2) Troponin I 0.308 Impressions: Head CT 06/02/20 13:19 IMPRESSION: MICROVASCULAR ISCHEMIA AND GENERALIZED ATROPHY. 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 NO ACUTE IMAGING FINDINGS IN THE BRAIN EVIDENCE OF ACUTE STROKE: NO. Abdomen/Pelvis CT 06/02/20 15:43 IMPRESSION: 1. Mild left lung base consolidation with fluid and cystic changes, considerations for this finding includes infectious pneumonia. 2. Additional findings as above. Chest X-Ray 06/04/20 00:00 IMPRESSION: Left basilar airspace opacity worrisome for pneumonia. There is no visible central venous catheter. Correlate with history. 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 - nephro following (2) Hypernatremia Is this a current diagnosis for this admission?: Yes Plan: -Na 164>153>155>147>150>151.7>148>146 - Patient has a history of recent stroke April 2020. According to the niece her appetite has been poor the past week. -Likely she looks very dehydrated with dry mucosa and poor skin turgor. This is likely the cause of her hypernatremia - Free water deficit 4.5L - s/p 1L of 1/4 saline per nephro - switched to D5 water at 60 ml/hr - nephro following (3) Hypertension Qualifiers: Hypertension type: essential hypertension Qualified Code(s): I10 - Essential (primary) hypertension Is this a current diagnosis for this admission?: Yes Plan: - will resume amlodipine when she is more awake (4) Hyperglycemia Is this a current diagnosis for this admission?: Yes Plan: - BG 476>155 - s/p 8u IV insulin - accucheck q6 and sliding scale insulin q6 - started her on lantus 10 u BID as well (5) DIEGO (acute kidney injury) Is this a current diagnosis for this admission?: Yes Plan: - Crea 1.58>2.0>2.57>3.0>3.55>2.31>2.07 baseline normal 0.8 - most likely pre renal given her presentation - IV fluids switched to D5 water - per nephro she is a poor candidate for dialysis - will monitor daily (6) UTI (urinary tract infection) Qualifiers: Urinary tract infection type: site unspecified Hematuria presence: without hematuria Qualified Code(s): N39.0 - Urinary tract infection, site not specified Is this a current diagnosis for this admission?: Yes Plan: - per UA moderate blood, large leukocyte esterase, WBC more than 182 -abx switched to ceftri due to concern for AIN -cultures negative (7) CVA (cerebral vascular accident) Qualifiers: CVA mechanism: occlusion Precerebral and cerebral artery: posterior cerebral artery Laterality of affected vessel: left Qualified Code(s): I63.532 - 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 Is this a current diagnosis for this admission?: Yes Plan: -Left GLYCERIN OPERATOR stroke 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, residual right-sided weakness -Repeat CT head negative -Aspirin suppository for now since she is lethargic (8) Elevated troponin Is this a current diagnosis for this admission?: Yes Plan: -Troponin 0.2>0.56>0.30 -EKG sinus tachycardia no ST elevation -Likely demand ischemia or secondary to her DIEGO from dehydration -We will trend troponin (9) Transaminitis Is this a current diagnosis for this admission?: Yes Plan: -AST 204>54, ALT 365>131, ALP 128 -This is likely from dehydration -We will monitor for now and repeat CMP tomorrow (10) Right sided weakness Is this a current diagnosis for this admission?: Yes Plan: -Recent left GLYCERIN OPERATOR stroke with residual right-sided weakness - Plan Summary Summary: . - Time Time Spent with patient: 25-34 minutes Medications reviewed and adjusted accordingly: Yes Anticipated Discharge Disposition: Hospice Center Anticipated Discharge Timeframe: tbd
--- NOTE | 2020-06-08 20:39 | ADVANCED CARE ---
- Diagnosis (1) Acute metabolic encephalopathy Diagnosis Current: Yes (2) Hypernatremia Diagnosis Current: Yes (3) Hypertension Diagnosis Current: Yes (4) Hyperglycemia Diagnosis Current: Yes (5) DIEGO (acute kidney injury) Diagnosis Current: Yes (6) UTI (urinary tract infection) Diagnosis Current: Yes (7) CVA (cerebral vascular accident) Diagnosis Current: Yes (8) Elevated troponin Diagnosis Current: Yes (9) Transaminitis Diagnosis Current: Yes (10) Right sided weakness Diagnosis Current: Yes Attendance: sonia niece and acting surrogate, over the speaker phone sister and brother Resuscitation Status: Do Not Resuscitate Discussion: Was able to talk to Sonia and the patient's sister and brother on speaker. I have discussed with them that despite her improving sodium, and improving UTI or pneumonia the patient is still very lethargic with minimal improvement of her mental status. I believe this is the best she will be and she will be always be at high risk for repeated hypernatremia due to inability to eat. Patient is hospice appropriate and I discussed this with Sonia and the rest of the family and they agree with this plan of care. Discharge planning was consulted for hospice referral. Comfort care orders entered. Patient is already DNR. Care Planning Goals: Transition to hospice care Time Spent: >16 min less than 30 min
--- NOTE | 2020-06-08 20:56 | PDOC TRANSFER SUMMARY ---
General - Admit/Disc Date/PCP Admission Date/Primary Care Provider: 06/02/20 17:29 JESSICA HOYT MD Discharge Date: 06/09/20 - Discharge Diagnosis (1) Acute metabolic encephalopathy Is this a current diagnosis for this admission?: Yes (2) Hypernatremia Is this a current diagnosis for this admission?: Yes (3) Hypertension Is this a current diagnosis for this admission?: Yes (4) Hyperglycemia Is this a current diagnosis for this admission?: Yes (5) DIEGO (acute kidney injury) Is this a current diagnosis for this admission?: Yes (6) UTI (urinary tract infection) Is this a current diagnosis for this admission?: Yes (7) CVA (cerebral vascular accident) Is this a current diagnosis for this admission?: Yes (8) Elevated troponin Is this a current diagnosis for this admission?: Yes (9) Transaminitis Is this a current diagnosis for this admission?: Yes (10) Right sided weakness Is this a current diagnosis for this admission?: Yes - Additional Information Resuscitation Status: Do Not Resuscitate Home Medications: Amlodipine Besylate [Norvasc 5 mg Tablet] 5 mg PO DAILY 04/21/20 Aspirin [Ecotrin 81 mg EC Tablet] 81 mg PO DAILY 06/02/20 Atorvastatin Calcium [Lipitor 40 mg Tablet] 40 mg PO DAILY 06/02/20 Mirtazapine [Remeron 15 mg Tablet] 15 mg PO QHS 06/02/20 History of Present Illness Admission Date/PCP: 06/02/20 17:29 JESSICA HOYT MD History of Present Illness: ANTONINO BARBOZA is a 89 year old female, history of hypertension, 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 Patient is unable to provide history so most of the history was obtained from her niece and from ED chart review. According to her niece Deidra nurses at [facility] told her that her aunt has not been eating or drinking a lot the past week. Deidra also mentioned that she was not as verbal as she had been a few weeks ago. Per ED notes her nurse yesterday noted that she has not been drinking. This morning around 8:30 PM the patient was apparently alert and was able to say good morning however at around 10 AM they noted that she was having difficulty swallowing and was not as responsive. Ifeoma ent was then sent to the ED for further evaluation and management. In the ED vital signs 111/88, heart rate 1 9, respiratory rate 18, temperature 99.9, O2 sat 98% on room air. She is unable to provide any history. Metabolic panel showed that she has a sodium of 164.6, creatinine of 1.58, glucose of 476, lactate of 3.1. CBC showed WBC count of 18, hemoglobin 16, platelet count 100. ED physician consulted Dr. Fields for the hyponatremia and Dr. Fields recommended 1 L bolus of one fourth saline and to start one fourth saline at 150 mL/h. Patient was also given IV antibiotics for suspected UTI. CT of the head did not show any acute stroke. 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 Patient is unable to provide history so most of the history was obtained from her niece and from ED chart review. According to her niece Deidra nurses at [facility] told her that her aunt has not been eating or drinking a lot the past week. Deidra also mentioned that she was not as verbal as she had been a few weeks ago. Per ED notes her nurse yesterday noted that she has not been drinking. This morning around 8:30 PM the patient was apparently alert and was able to say good morning however at around 10 AM they noted that she was having difficulty swallowing and was not as responsive. Patient was then sent to the ED for further evaluation and management. In the ED vital signs 111/88, heart rate 1 9, respiratory rate 18, temperature 99.9, O2 sat 98% on room air. She is unable to provide any history. Metabolic panel showed that she has a sodium of 164.6, creatinine of 1.58, glucose of 476, lactate of 3.1. CBC showed WBC count of 18, hemoglobin 16, platelet count 100. ED physician consulted Dr. Fields for the hyponatremia and Dr. Fields recommended 1 L bolus of one fourth saline and to start one fourth saline at 150 mL/h. Patient was also given IV antibiotics for suspected UTI. CT of the head did not show any acute stroke. D2 06/03/20 hospital stay Patient was seen and examined at bedside. She is still very lethargic and obtunded. A central line was placed because it has been very difficult to get blood from her. Sodium decreased from 164 to 153, still currently on 1/4 saline. I have spoken to her niece and primary caregiver Deidra. I informed her the she is still very lethargic and this is likely still due to her hypernatremia as well as sepsis from UTI. Unfortunately with her recent stroke and her age, I am worried that her mental status might not recover and her morbidity adn mortality is very high. I discussed changing her code status to DNR/DNI and consider transitioning her to hospice if the current medical management is not working. Deidra stated that she has discussed the matter with the patients other siblings and they agreed that she would want to pass peacefully and " not suffer". Plan to continue medical management with abx and IV fluids and will re assess her the next few days. D3 Hospital stay 06/04/20 Patient was seen and examined at bedside. Still very obtunded. Na has improved to 147 hence IV fluids was changed to D5 half normal. WBC has improved to 11.2 D4 hospital stay 06/05/20 Patient was seen and examined at bedside. She was able to answer a few questions appropriately so she is not as obtunded as yesterday but still not back to her baseline. Na 150 toDAY, She is currently on d5 half normal with potassium chloride incorporated in the IV fluid. Crea still uptrending however she is non oliguric. D5 hospital stay 06/06/20 Patient was seen and examined at bedside. More alert and awake today although still appears weak and cannot sustain a prolonged conversation. Na again trending up to 151.7, IV fluids switched to D5W 60 cc/hr. Kidney function improved to 2.55, non oliguric. D6 hospital stay 06/07/20 Patient was seen and examined at bedside. Improved mentation but still not fully conversational. Na improved to 148.3 on D5 water nd cera improved to 2.3 from 2.5. Per nurse she did not pass bedside swallow study, awaiting formal swallow eval. I am worried that this is the best she is going to be and she continued to be at a high risk for repeat episodes of hypernatremia due to her aphasia. Feeding tube is not a good option for her. d7 hospital stay 06/08/20 Patient was seen and examined at bedside.Mental status has not really improved much from yesterday. She answers the most simplest question but is unable to engage more with conversations. Na improved to 146.9 on D5 water and her WBC count is normal. I spoke to Deidra [id number] with the patient's sister and brother on speaker phone. I believe that this is the best she will be as far as her mental status is concerned. Unfortunately because of her stroke she would always be at a risk for aspiration pneumonia and hyponatremia due to her inability to eat. Despite correcting her sodium and treating her infection her mental status has not really improved. I spoke to Deidra about the patient being hospice appropriate due to her significant stroke, hypernatremia and ongoing infection. She and the patient sister has agreed to put her on hospice. Her CODE STATUS was already changed to DNR and discharge planning was made aware. Physical Exam Vital Signs: Temp Pulse Resp BP Pulse Ox 97.9 F 94 18 127/74 H 97 06/08/20 15:40 06/08/20 15:40 06/08/20 15:40 06/08/20 18:01 06/08/20 15:40 Intake & Output 06/07/20 06/08/20 06/09/20 06:59 06:59 06:59 Intake Total 2050 2050 150 Output Total 250 620 400 Balance 1800 1430 -250 Weight 54.9 kg 55.1 kg 55.1 kg General appearance: PRESENT: no acute distress, cooperative, hard of hearing, thin Head exam: PRESENT: atraumatic, normocephalic Eye exam: PRESENT: EOMI, PERRLA Mouth exam: PRESENT: moist Neck exam: PRESENT: full ROM Respiratory exam: PRESENT: clear to auscultation francine, symmetrical, unlabored Cardiovascular exam: PRESENT: RRR, +S1, +S2 GI/Abdominal exam: PRESENT: normal bowel sounds, soft. ABSENT: rebound, tenderness Extremities exam: PRESENT: other - Residual right-sided weakness Neurological exam: PRESENT: altered, CN II-XII grossly intact - Residual right- sided weakness, aphasic Psychiatric exam: PRESENT: normal mood Skin exam: PRESENT: normal color Results Laboratory Results: 06/05/20 13:05 06/08/20 03:47 06/08/20 03:47 Sodium 146.9 H Potassium 3.1 L D Chloride 120 H Carbon Dioxide 19 L Anion Gap 8 BUN 40 H Creatinine 2.07 H Est GFR ( Amer) 27 L Glucose 80 Calcium 8.1 L 06/06/20 00:20 Catheterized Urine Urine Culture - Final NO GROWTH 2 DAYS 06/02/20 06/02/20 06/02/20 13:25 13:25 18:00 Creatine Kinase 51 CK-MB (CK-2) 2.53 Troponin I 0.200 Cancelled 06/02/20 06/02/20 06/03/20 23:25 23:59 06:10 Creatine Kinase CK-MB (CK-2) Troponin I Cancelled Cancelled 0.567 06/03/20 18:04 Creatine Kinase CK-MB (CK-2) Troponin I 0.308 Impressions: Head CT 06/02/20 13:19 IMPRESSION: MICROVASCULAR ISCHEMIA AND GENERALIZED ATROPHY. 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 NO ACUTE IMAGING FINDINGS IN THE BRAIN EVIDENCE OF ACUTE STROKE: NO. Abdomen/Pelvis CT 06/02/20 15:43 IMPRESSION: 1. Mild left lung base consolidation with fluid and cystic changes, considerations for this finding includes infectious pneumonia. 2. Additional findings as above. Chest X-Ray 06/04/20 00:00 IMPRESSION: Left basilar airspace opacity worrisome for pneumonia. There is no visible central venous catheter. Correlate with history. copyright 2011 [email or web address]- All Rights Reserved Transfer Plan - Disposition Transfer Plan: transfer to hospice Qualifiers PATIENT BEING DISCHARGED WITH ANY OF THE FOLLOWING DIAGNOSIS: No Plan Discharge Plan: Transfer to hospice Time Spent: Greater than 30 Minutes
[2020-06-09] MEDS: INSULIN REG, HUMAN 100 UNIT/ML 3 ML VIAL (PYX) SUBCUT SCH ×3 (00:01→12:39)
[2020-06-09] MEDS: ASPIRIN 300 MG SUPP, RECTAL PR SCH (12:38)
[2020-06-09] MEDS: INSULIN GLARGINE,HUM.REC.ANLOG 1,000 UNIT/10 ML VIAL SUBCUT SCH (12:41)
[2020-06-09] MEDS ORDERED: LORAZEPAM INJ 2 MG/1 ML VIAL IV PRN (15:57)
[2020-06-09] MEDS ORDERED: MORPHINE SULFATE 10 MG/ML INJ IV PRN (15:57)
--- NOTE | 2020-06-09 16:00 | PDOC PROGRESS REPORT ---
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 Patient is unable to provide history so most of the history was obtained from her niece and from ED chart review. According to her niece Deidra nurses at [facility] told her that her aunt has not been eating or drin aly a lot the past week. Deidra also mentioned that she was not as verbal as she had been a few weeks ago. Per ED notes her nurse yesterday noted that she has not been drinking. This morning around 8:30 PM the patient was apparently alert and was able to say good morning however at around 10 AM they noted that she was having difficulty swallowing and was not as responsive. Patient was then sent to the ED for further evaluation and management. In the ED vital signs 111/88, heart rate 1 9, respiratory rate 18, temperature 99.9, O2 sat 98% on room air. She is unable to provide any history. Metabolic panel showed that she has a sodium of 164.6, creatinine of 1.58, glucose of 476, lactate of 3.1. CBC showed WBC count of 18, hemoglobin 16, platelet count 100. ED physician consulted Dr. Fields for the hyponatremia and Dr. Fields recommended 1 L bolus of one fourth saline and to start one fourth saline at 150 mL/h. Patient was also given IV antibiotics for suspected UTI. CT of the head did not show any acute stroke. D2 06/03/20 hospital stay Patient was seen and examined at bedside. She is still very lethargic and obtunded. A central line was placed because it has been very difficult to get blood from her. Sodium decreased from 164 to 153, still currently on 1/4 saline. I have spoken to her niece and primary caregiver Deidra. I informed her the she is still very lethargic and this is likely still due to her hypernatremia as well as sepsis from UTI. Unfortunately with her recent stroke and her age, I am worried that her mental status might not recover and her morbidity adn mortality is very high. I discussed changing her code status to DNR/DNI and consider transitioning her to hospice if the current medical management is not working. Deidra stated that she has discussed the matter with the patients other siblings and they agreed that she would want to pass peacefully and " not suffer". Plan to continue medical management with abx and IV fluids and will re assess her the next few days. D3 Hospital stay 06/04/20 Patient was seen and examined at bedside. Still very obtunded. Na has improved to 147 hence IV fluids was changed to D5 half normal. WBC has improved to 11.2 D4 hospital stay 06/05/20 Patient was seen and examined at bedside. She was able to answer a few questions appropriately so she is not as obtunded as yesterday but still not back to her baseline. Na 150 toDAY, She is currently on d5 half normal with potassium chloride incorporated in the IV fluid. Crea still uptrending however she is non oliguric. D5 hospital stay 06/06/20 Patient was seen and examined at bedside. More alert and awake today although still appears weak and cannot sustain a prolonged conversation. Na again trending up to 151.7, IV fluids switched to D5W 60 cc/hr. Kidney function improved to 2.55, non oliguric. D6 hospital stay 06/07/20 Patient was seen and examined at bedside. Improved mentation but still not fully conversational. Na improved to 148.3 on D5 water nd cera improved to 2.3 from 2.5. Per nurse she did not pass bedside swallow study, awaiting formal swallow eval. I am worried that this is the best she is going to be and she continued to be at a high risk for repeat episodes of hypernatremia due to her aphasia. Feeding tube is not a good option for her. d7 hospital stay 06/08/20 Patient was seen and examined at bedside.Mental status has not really improved much from yesterday. She answers the most simplest question but is unable to engage more with conversations. Na improved to 146.9 on D5 water and her WBC count is normal. I spoke to Deidra [id number] with the patient's sister and brother on speaker phone. I believe that this is the best she will be as far as her mental status is concerned. Unfortunately because of her stroke she would always be at a risk for aspiration pneumonia and hyponatremia due to her inability to eat. Despite correcting her sodium and treating her infection her mental status has not really improved. I spoke to Deidra about the patient being hospice appropriate due to her significant s troke, hypernatremia and ongoing infection. She and the patient sister has agreed to put her on hospice. Her CODE STATUS was already changed to DNR and discharge planning was made aware. 06/09/2020-patient is going to hospice house tomorrow. The hospice house is at [facility]. Patient is on comfort care measures. Patient is unable to engage in conversations. CODE STATUS is DNR/DNI. Reason For Visit: HYPERNATREMIA Physical Exam Vital Signs: Temp Pulse Resp BP Pulse Ox 99.7 F 80 18 145/78 H 95 06/09/20 10:00 06/09/20 08:49 06/09/20 08:49 06/09/20 08:49 06/09/20 08:49 Intake & Output 06/08/20 06/09/20 06/10/20 06:59 06:59 06:59 Intake Total 2050 1200 Output Total 620 600 Balance 1430 600 Weight 55.1 kg 59 kg General appearance: PRESENT: no acute distress, cooperative Head exam: PRESENT: atraumatic Eye exam: PRESENT: PERRLA Mouth exam: PRESENT: moist, tongue midline Teeth exam: PRESENT: poor dentation Neck exam: ABSENT: carotid bruit, JVD, lymphadenopathy, thyromegaly Respiratory exam: PRESENT: decreased breath sounds Pulses: PRESENT: normal dorsalis pedis pul GI/Abdominal exam: PRESENT: normal bowel sounds, soft. ABSENT: distended, guarding, mass, organolmegaly, rebound, tenderness Rectal exam: PRESENT: deferred Extremities exam: PRESENT: other - Right-sided weakness present. Neurological exam: PRESENT: other - Right-sided weakness present patient is aphasic. Results Laboratory Results: 06/05/20 13:05 06/08/20 03:47 06/06/20 00:20 Catheterized Urine Urine Culture - Final NO GROWTH 2 DAYS 06/02/20 06/02/20 06/02/20 13:25 13:25 18:00 Creatine Kinase 51 CK-MB (CK-2) 2.53 Troponin I 0.200 Cancelled 06/02/20 06/02/20 06/03/20 23:25 23:59 06:10 Creatine Kinase CK-MB (CK-2) Troponin I Cancelled Cancelled 0.567 06/03/20 18:04 Creatine Kinase CK-MB (CK-2) Troponin I 0.308 Impressions: Head CT 06/02/20 13:19 IMPRESSION: MICROVASCULAR ISCHEMIA AND GENERALIZED ATROPHY. 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 NO ACUTE IMAGING FINDINGS IN THE BRAIN EVIDENCE OF ACUTE STROKE: NO. Abdomen/Pelvis CT 06/02/20 15:43 IMPRESSION: 1. Mild left lung base consolidation with fluid and cystic changes, considerations for this finding includes infectious pneumonia. 2. Additional findings as above. Chest X-Ray 06/04/20 00:00 IMPRESSION: Left basilar airspace opacity worrisome for pneumonia. There is no visible central venous catheter. Correlate with history. 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 - nephro following 06/09/2020-patient is going to inpatient hospice house at [facility]. (2) Hypernatremia Is this a current diagnosis for this admission?: Yes Plan: -Na 164>153>155>147>150>151.7>148>146 - Patient has a history of recent stroke April 2020. According to the niece her appetite has been poor the past week. -Likely she looks very dehydrated with dry mucosa and poor skin turgor. This is likely the cause of her hypernatremia - Free water deficit 4.5L - s/p 1L of 1/4 saline per nephro - switched to D5 water at 60 ml/hr - nephro following 06/09/20-patient is on comfort care measures only. (3) DIEGO (acute kidney injury) Is this a current diagnosis for this admission?: Yes Plan: - Crea 1.58>2.0>2.57>3.0>3.55>2.31>2.07 baseline normal 0.8 - most likely pre renal given her presentation - IV fluids switched to D5 water - per nephro she is a poor candidate for dialysis - will monitor daily 06/09/2020-patient is on comfort care measures only. (4) Hypertension Qualifiers: Hypertension type: essential hypertension Qualified Code(s): I10 - Essential (primary) hypertension Is this a current diagnosis for this admission?: No Plan: - will resume amlodipine when she is more awake 06/09/2020-patient is on comfort care measures only. (5) UTI (urinary tract infection) Qualifiers: Urinary tract infection type: site unspecified Hematuria presence: without hematuria Qualified Code(s): N39.0 - Urinary tract infection, site not specified Is this a current diagnosis for this admission?: Yes Plan: - per UA moderate blood, large leukocyte esterase, WBC more than 182 -abx switched to ceftri due to concern for AIN -cultures negative 06/09/20-patient is on comfort care measures only. (6) Right sided weakness Is this a current diagnosis for this admission?: No Plan: -Recent left DENTAL ASSISTANT MEDICAL ASSISTANT stroke with residual right-sided weakness 06/09/20-patient is on comfort care measures only. (7) Elevated troponin Is this a current diagnosis for this admission?: Yes Plan: -Troponin 0.2>0.56>0.30 -EKG sinus tachycardia no ST elevation -Likely demand ischemia or secondary to her DIEGO from dehydration -We will trend troponin 06/09/20-patient is on comfort care measures only. - Plan Summary Summary: . - Time Anticipated Discharge Disposition: Hospice Center Anticipated Discharge Timeframe: within 24 hours
[2020-06-09] MEDS ORDERED: SCOPOLAMINE HYDROBROMIDE 1.5 MG PATCH.TD72 TD SCH (18:00)
[2020-06-10 11:23] VITALS: BP 143/64
--- NOTE | 2020-06-10 14:06 | PDOC TRANSFER SUMMARY ---
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 - nephro following 06/09/2020-patient is going to inpatient hospice house at [facility]. 06/10/2020-patient is going to [facility] hospice today. (2) Hypernatremia Is this a current diagnosis for this admission?: Yes Summary: -Na 164>153>155>147>150>151.7>148>146 - Patient has a history of recent stroke April 2020. According to the niece her appetite has been poor the past week. -Likely she looks very dehydrated with dry mucosa and poor skin turgor. This is likely the cause of her hypernatremia - Free water deficit 4.5L - s/p 1L of 1/4 saline per nephro - switched to D5 water at 60 ml/hr - nephro following 06/09/20-patient is on comfort care measures only. 3020-patient is going to hospice in house hospice today. (3) DIEGO (acute kidney injury) Is this a current diagnosis for this admission?: Yes Summary: - Crea 1.58>2.0>2.57>3.0>3.55>2.31>2.07 baseline normal 0.8 - most likely pre renal given her presentation - IV fluids switched to D5 water - per nephro she is a poor candidate for dialysis - will monitor daily 06/09/2020-patient is on comfort care measures only. (4) Hypertension Is this a current diagnosis for this admission?: No Summary: - will resume amlodipine when she is more awake 06/09/2020-patient is on comfort care measures only. (5) UTI (urinary tract infection) Is this a current diagnosis for this admission?: Yes Summary: - per UA moderate blood, large leukocyte esterase, WBC more than 182 -abx switched to ceftri due to concern for AIN -cultures negative 06/09/20-patient is on comfort care measures only. 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 (7) Elevated troponin Is this a current diagnosis for this admission?: Yes Summary: -Troponin 0.2>0.56>0.30 -EKG sinus tachycardia no ST elevation -Likely demand ischemia or secondary to her DIEGO from dehydration -We will trend troponin 06/09/20-patient is on comfort care measures only. - Additional Information Resuscitation Status: Do Not Resuscitate Discharge Diet: As Tolerated Discharge Activity: Bedrest History of Present Illness Admission Date/PCP: 06/02/20 17:29 JESSICA HOYT MD History of Present Illness: ANTONINO BARBOZA is a 89 year old female 89 year old female, history of hypertension, recent stroke left TIRE VULCANIZER affecting right side of her body, who was sent from [facility] due to altered mental status. Patient is unable to provide history so most of the history was obtained from her niece and from ED chart review. According to her niece Deidra nurses at [facility] told her that her aunt has not been eating or drinking a lot the past week. Deidra also mentioned that she was not as verbal as she had been a few weeks ago. Per ED notes her nurse yesterday noted that she has not been drinking. This morning around 8:30 PM the patient was apparently alert and was able to say good morning however at around 10 AM they noted that she was having difficulty swallowing and was not as responsive. Patient was then sent to the ED for further evaluation and management. In the ED vital signs 111/88, heart rate 1 9, respiratory rate 18, temperature 99.9, O2 sat 98% on room air. She is unable to provide any history. Metabolic panel yeimi wed that she has a sodium of 164.6, creatinine of 1.58, glucose of 476, lactate of 3.1. CBC showed WBC count of 18, hemoglobin 16, platelet count 100. ED physician consulted Dr. Fields for the hyponatremia and Dr. Fields recommended 1 L bolus of one fourth saline and to start one fourth saline at 150 mL/h. Patient was also given IV antibiotics for suspected UTI. CT of the head did not show any acute stroke. Hospital Course Hospital Course: 89 year old female, history of hypertension, recent stroke left TIRE VULCANIZER affecting right side of her body, who was sent from [facility] due to altered mental status. Patient is unable to provide history so most of the history was obtained from her niece and from ED chart review. According to her niece Parker ramos nurses at [facility] told her that her aunt has not been eating or drinking a lot the past week. Deidra also mentioned that she was not as verbal as she had been a few weeks ago. Per ED notes her nurse yesterday noted that she has not been drinking. This morning around 8:30 PM the patient was apparently alert and was able to say good morning however at around 10 AM they noted that she was having difficulty swallowing and was not as responsive. Patient was then sent to the ED for further evaluation and management. In the ED vital signs 111/88, heart rate 1 9, respiratory rate 18, temperature 99.9, O2 sat 98% on room air. She is unable to provide any history. Metabolic panel showed that she has a sodium of 164.6, creatinine of 1.58, glucose of 476, lactate of 3.1. CBC showed WBC count of 18, hemoglobin 16, platelet count 100. ED physician consulted Dr. Fields for the hyponatremia and Dr. Fields recommended 1 L bolus of one fourth saline and to start one fourth saline at 150 mL/h. Patient was also given IV antibiotics for suspected UTI. CT of the head did not show any acute stroke. D2 06/03/20 hospital stay Patient was seen and examined at bedside. She is still very lethargic and obtunded. A central line was placed because it has been very difficult to get blood from her. Sodium decreased from 164 to 153, still currently on 1/4 saline. I have spoken to her niece and primary caregiver Deidra. I informed her the she is still very lethargic and this is likely st ill due to her hypernatremia as well as sepsis from UTI. Unfortunately with her recent stroke and her age, I am worried that her mental status might not recover and her morbidity adn mortality is very high. I discussed changing her code status to DNR/DNI and consider transitioning her to hospice if the current medical management is not working. Deidra stated that she has discussed the matter with the patients other siblings and they agreed that she would want to pass peacefully and " not suffer". Plan to continue medical management with abx and IV fluids and will re assess her the next few days. D3 Hospital stay 06/04/20 Patient was seen and examined at bedside. Still very obtunded. Na has improved to 147 hence IV fluids was changed to D5 half normal. WBC has improved to 11.2 D4 hospital stay 06/05/20 Patient was seen and examined at bedside. She was able to answer a few questions appropriately so she is not as obtunded as yesterday but still not back to her baseline. Na 150 toDAY, She is currently on d5 half normal with potassium chloride incorporated in the IV fluid. Crea still uptrending however she is non oliguric. D5 hospital stay 06/06/20 Patient was seen and examined at bedside. More alert and awake today although still appears weak and cannot sustain a prolonged co nversation. Na again trending up to 151.7, IV fluids switched to D5W 60 cc/hr. Kidney function improved to 2.55, non oliguric. D6 hospital stay 06/07/20 Patient was seen and examined at bedside. Improved mentation but still not fully conversational. Na improved to 148.3 on D5 water nd cera improved to 2.3 from 2.5. Per nurse she did not pass bedside swallow study, awaiting formal swallow eval. I am worried that this is the best she is going to be and she continued to be at a high risk for repeat episodes of hypernatremia due to her aphasia. Feeding tube is not a good option for her. d7 hospital stay 06/08/20 Patient was seen and examined at bedside.Mental status has not really improved much from yesterday. She answers the most simplest question but is unable to engage more with conversations. Na improved to 146.9 on D5 water and her WBC count is normal. I spoke to Deidra [id number] with the patient's sister and brother on speaker phone. I believe that this is the best she will be as far as her mental status is concerned. Unfortunately because of her stroke she would always be at a risk for aspiration pneumonia and hyponatremia due to her inability to eat. Despite correcting her sodium and treating her infection her mental status has not really improved. I spoke to Deidra about the patient being hospice appropriate due to her significant stroke, hypernatremia and ongoing infection. She and the patient sister has agreed to put her on hospice. Her CODE STATUS was already changed to DNR and discharge planning was made aware. 06/09/2020-patient is going to hospice house tomorrow. The hospice house is at [facility]. Patient is on comfort care measures. Patient is unable to engage in conversations. CODE STATUS is DNR/DNI. 06/10/2020-patient is going to [facility]. Inpatient hospice. Physical Exam Vital Signs: Temp Pulse Resp BP Pulse Ox 97.8 F 75 17 143/64 H 97 06/10/20 07:41 06/10/20 07:41 06/10/20 07:41 06/10/20 07:41 06/10/20 07:41 Intake & Output 06/09/20 06/10/20 06/11/20 06:59 06:59 06:59 Intake Total 1200 0 Output Total 600 800 Balance 600 -800 Weight 59 kg General appearance: PRESENT: no acute distress, disheveled, thin Head exam: PRESENT: atraumatic Eye exam: PRESENT: PERRLA Ear exam: PRESENT: normal external ear exam Mouth exam: PRESENT: neck supple Teeth exam: PRESENT: poor dentation Neck exam: ABSENT: carotid bruit, JVD, lymphadenopathy, thyromegaly Respiratory exam: PRESENT: decreased breath sounds Cardiovascular exam: PRESENT: RRR. ABSENT: diastolic murmur, rubs, systolic murmur GI/Abdominal exam: PRESENT: normal bowel sounds, soft. ABSENT: distended, gu arding, mass, organolmegaly, rebound, tenderness Rectal exam: PRESENT: deferred Extremities exam: PRESENT: full ROM. ABSENT: calf tenderness, clubbing, pedal edema Neurological exam: PRESENT: altered Skin exam: PRESENT: dry, intact, warm. ABSENT: cyanosis, rash Results Laboratory Results: 06/05/20 13:05 06/08/20 03:47 06/02/20 06/02/20 06/02/20 13:25 13:25 18:00 Creatine Kinase 51 CK-MB (CK-2) 2.53 Troponin I 0.200 Cancelled 06/02/20 06/02/20 06/03/20 23:25 23:59 06:10 Creatine Kinase CK-MB (CK-2) Troponin I Cancelled Cancelled 0.567 06/03/20 18:04 Creatine Kinase CK-MB (CK-2) Troponin I 0.308 Impressions: Head CT 06/02/20 13:19 IMPRESSION: MICROVASCULAR ISCHEMIA AND GENERALIZED ATROPHY. 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 NO ACUTE IMAGING FINDINGS IN THE BRAIN EVIDENCE OF ACUTE STROKE: NO. Abdomen/Pelvis CT 06/02/20 15:43 IMPRESSION: 1. Mild left lung base consolidation with fluid and cystic changes, considerations for this finding includes infectious pneumonia. 2. Additional findings as above. Chest X-Ray 06/04/20 00:00 IMPRESSION: Left basilar airspace opacity worrisome for pneumonia. There is no visible central venous catheter. Correlate with history. copyright 2011 [employer]- All Rights Reserved Transfer Plan - Disposition Transfer Plan: Patient is going to inpatient hospice - Time Spent with Patient Time spent with patient: Greater than 30 Minutes Qualifiers PATIENT BEING DISCHARGED WITH ANY OF THE FOLLOWING DIAGNOSIS: No
[2020-06-12] MEDS ORDERED: SCOPOLAMINE HYDROBROMIDE 1.5 MG PATCH.TD72 TD SCH (10:00)
== END 2020-06-10 13:15 | disposition hospice, inpatient (51) | DRG 871 ==
LOC: ER 12:58 → EH 17:29 → 5 21:03
PROVIDERS: ADMIT Internal Medicine; ATTEND Internal Medicine
PROC: 02HV33Z Insertion of Infusion Device into Superior Vena Cava, Percutaneous Approach (ICD-10-PCS; principal; 2020-06-03)
DX: A41.9 Sepsis, unspecified organism (principal); G93.41 Metabolic encephalopathy; J18.9 Pneumonia, unspecified organism; N17.9 Acute kidney failure, unspecified; E87.0 Hyperosmolality and hypernatremia; I69.351 Hemiplegia and hemiparesis following cerebral infarction affecting right dominant side; N39.0 Urinary tract infection, site not specified; E86.0 Dehydration; Z51.5 Encounter for palliative care; I10 Essential (primary) hypertension; R77.8 Other specified abnormalities of plasma proteins; Z66 Do not resuscitate; R73.9 Hyperglycemia, unspecified; R74.01 Elevation of levels of liver transaminase levels; E78.5 Hyperlipidemia, unspecified; M19.90 Unspecified osteoarthritis, unspecified site; Z79.82 Long term (current) use of aspirin; Z79.899 Other long term (current) drug therapy; Z11.59 Encounter for screening for other viral diseases
CPT/HCPCS: 36415; 51702; 70450; 71045; 74176; 80048; 80053; 81001; 82550; 82553; 82803; 82947; 82962; 83605; 84484; 85025; 85610; 85730; 87040; 87070; 87086; 87088; 87186; 93005; 93010; 96365; 99285; 0241U; C9803; J0456; J0696; J1642; J1815; J2270; J2543; J3370; J3480; J3490; J7050; J7060